=== PATIENT | female | born 1950 | race Caucasian/White ===

== ENCOUNTER 2020-03-02 06:15 | Emergency (ER) | payer BC, MEDICARE ==
[2020-03-02] MEDS ORDERED: solu-MEDROL 125 MG IM ONE (06:25)
[2020-03-02] MEDS ORDERED: Augmentin 875-125 Tablet PO ONE (06:26)
[2020-03-02] MEDS ORDERED: solu-MEDROL 125 MG ONE (06:28)
[2020-03-02] MEDS ORDERED: Augmentin 875-125 Tablet ONE (06:28)
--- NOTE | 2020-03-02 06:51 | ERPHSYRPT ---
- History of Present Illness Time Seen by Provider: 03/02/20 06:20 Source: patient Exam Limitations: no limitations Patient Subjective Stated Complaint: pt c/o throat swelling Triage Nursing Assessment: Pt c/o throat swelling and states, "everytime I swallow, it's like a big lump comes up in my throat". Throat is edematous and red, no white patches noted. Pt on rm air, maintaining O2 sats at 98%. Physician History: 69 years old female presented in the ER with chief complaint of sore throat sudden onset around midnight, more on the right side, feeling a small lump every time she tries to swallow which causes mild to moderate pain. No difficulty breathing. She denies swelling of tongue or throat closing sensations. No fever or chills reported. Timing/Duration: abrupt onset, hours (6) Severity: moderate ENT Location: throat Prearrival Treatment: no prearrival treatment Modifying Factors: Improves With: other (swallowing) Associated Symptoms: swollen glands, sore throat Allergies/Adverse Reactions: No Known Drug Allergies Allergy (Verified 03/02/20 06:33) Home Medications: Lisinopril/Hydrochlorothiazide [Lisinopril-Hctz 10-12.5 mg Tab] 10 tab PO DAILY 10/06/15 [History] Omeprazole 40 mg PO DAILY 10/06/15 [History] Albuterol Sulfate [Proair Hfa] 8.5 gm IH BID 10/18/15 [History] Aspirin 81 gm Chew [Baby Aspirin 81 mg Chew] 81 mg PO DAILY 10/18/15 [History] Hx Tetanus, Diphtheria Vaccination/Date Given: Yes Hx Influenza Vaccination/Date Given: Yes Hx Pneumococcal Vaccination/Date Given: No Immunizations Up to Date: Yes Travel Risk - International Travel Have you traveled outside of the country in past 3 weeks: No - Coronavirus Screening Are you exhibiting any of the following symptoms?: No Close contact with a COVID-19 positive Pt in past 14-21 Days: No - Review of Systems Constitutional: No Symptoms Eyes: No Symptoms Ears, Nose, & Throat: Throat Pain, Throat Swelling, Painful Swallowing Respiratory: No Symptoms Cardiac: No Symptoms Abdominal/Gastrointestinal: No Symptoms Genitourinary Symptoms: No Symptoms Musculoskeletal: No Symptoms Neurological: No Symptoms Psychological: No Symptoms Endocrine: No Symptoms - Past Medical History Pertinent Past Medical History: Yes Neurological History: Migraines ENT History: No Pertinent History Cardiac History: High Cholesterol, Hypertension Respiratory History: Asthma Endocrine Medical History: No Pertinent History Musculoskeletal History: Arthritis GI Medical History: GERD, Ulcer History: No Pertinent History Psycho-Social History: Anxiety Female Reproductive Disorders: No Pertinent History - Past Surgical History Past Surgical History: Yes Neuro Surgical History: No Pertinent History Cardiac: No Pertinent History Respiratory: No Pertinent History Gastrointestinal: Appendectomy Genitourinary: No Pertinent History Musculoskeletal: Orthopedic Surgery Female Surgical History: Hysterectomy, Tubal Ligation Other Surgical History: teddy knee replacement x2 - Social History Smoking Status: Never smoker Exposure to second hand smoke: Yes Drug Use: none Patient Lives Alone: No - Female History Hx Now: No - Nursing Vital Signs Nursing Vital Signs: Initial Vital Signs Temperature 98.0 F 03/02/20 06:20 Pulse Rate 76 03/02/20 06:20 Respiratory Rate 18 03/02/20 06:20 Blood Pressure 204/104 03/02/20 06:20 O2 Sat by Pulse Oximetry 97 03/02/20 06:20 Pain Scale Pain Intensity 0 - Physical Exam General Appearance: no apparent distress, alert Eye Exam: bilateral eye: normal inspection, PERRL, EOMI Ear Exam: bilateral ear: auricle normal, canal normal, TM normal Nasal Exam: normal inspection Throat Exam: normal (Visit cold outside), pharynx swelling (Postnasal drip, very well visible posterior pharynx. 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, normal mood/affect Skin Exam: normal color SpO2 Interpretation: normal SpO2: 97 O2 Delivery: Room Air Ordered Tests: Medication Summary Discontinued Medications Generic Name Dose Route Start Last Admin Trade Name Freq PRN Reason Stop Dose Admin Amoxicillin/Clavulanate Potassium 875 mg 03/02/20 06:26 03/02/20 06:31 Augmentin 875-125 Tablet PO 03/02/20 06:27 875 mg STAT ONE Administration Amoxicillin/Clavulanate Potassium Confirm 03/02/20 06:28 Augmentin 875-125 Tablet Administered 03/02/20 06:29 Dose 875 mg .ROUTE .STK-MED ONE Methylprednisolone Sodium Succinate 125 mg 03/02/20 06:25 03/02/20 06:31 Solu-Medrol 125 Mg IM 03/02/20 06:26 125 mg STAT ONE Administration Methylprednisolone Sodium Succinate Confirm 03/02/20 06:28 Solu-Medrol 125 Mg Administered 03/02/20 06:29 Dose 125 mg .ROUTE .STK-MED ONE Lab/Rad Data: Laboratory Results 03/02/20 Range/Units 07:00 Group A Strep Antibody NOT DETECTED (NEGATIVE) - Progress Progress: re-examined Progress Note: 03/02/20 06:49 We will treat with steroids and antibiotics. Counseled pt/family regarding: lab results, diagnosis - Departure Departure Disposition: Home Clinical Impression: Acute pharyngitis Qualifiers: Pharyngitis/tonsillitis etiology: other specified organisms Qualified Code(s): J02.8 - Acute pharyngitis due to other specified organisms Condition: Stable Critical Care Time: No Referrals: JOSE SOLO [Primary Care Provider] - (1-2 days for reevaluation) Instructions: Sore Throat, Adult (DC) Additional Instructions: Use warm salt water gargles. Take Tylenol/ibuprofen as needed. Follow-up with primary care physician for reevaluation. Return to ER for increasing swelling, difficulty breathing or if you notice swelling of tongue/floor of mouth/fever or chills. Prescriptions: Amox Tr/Potass Clav. 875 mg [Augmentin 875-125 Tablet] 875 mg PO BID 10 Days #20 tablet Prednisone 20 mg [Deltasone 20 mg] 60 mg PO DAILY 5 Days #15 tablet
[2020-03-02 07:42] VITALS: BP 203/96; PULSE 60
[2020-03-05 08:27] VITALS: O2SAT 97
== END 2020-03-02 07:45 | disposition home or self-care (01) ==
LOC: ED 06:15
DX: J02.8 Acute pharyngitis due to other specified organisms (principal)
CPT/HCPCS: 87651; 96372; 99284; J2930; A9270-GY

== ENCOUNTER 2022-02-03 07:01 | Emergency (ER) | payer MEDICARE ==
[2022-02-03 07:21] VITALS: O2SAT 98
--- NOTE | 2022-02-03 07:35 | ERPHSYRPT ---
- History of Present Illness Time Seen by Provider: 02/03/22 07:33 Source: patient Exam Limitations: no limitations Patient Subjective Stated Complaint: Pt states "I have had a cough and fever on and off since friday." Triage Nursing Assessment: Pt presented alert and oriented x 3, skin pwd. Pt ambulates with an upright steady gait, able to speak in clear full sentences Pt has persistant coughing. Physician History: Pt states "I have had a cough and fever on and off since friday." c/o mild shortness of breath. 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 Associated Symptoms: cough, muscle aches, shortness of breath Allergies/Adverse Reactions: No Known Drug Allergies Allergy (Verified 03/02/20 06:33) Home Medications: Omeprazole 40 mg PO DAILY 10/06/15 [History] Albuterol Sulfate [Proair Hfa] 8.5 gm IH BID 10/18/15 [History] Aspirin 81 gm Chew [Baby Aspirin 81 mg Chew] 81 mg PO DAILY 10/18/15 [History] Hx Tetanus, Diphtheria Vaccination/Date Given: Yes Hx Influenza Vaccination/Date Given: Yes Hx Pneumococcal Vaccination/Date Given: No Immunizations Up to Date: Yes Travel Risk - International Travel Have you traveled outside of the country in past 3 weeks: No - Coronavirus Screening Are you exhibiting any of the following symptoms?: Yes Symptoms: Fever, Cough: New Onset, Headaches/Body Aches/Fatigue Close contact with a COVID-19 positive Pt in past 14-21 Days: No - Vaccine Status Have you recieved a Covid-19 vaccination: Yes 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[employer] - Review of Systems Constitutional: Fever, Chills, Malaise Eyes: No Symptoms Ears, Nose, & Throat: No Symptoms Respiratory: Cough, Wheezing, No Dyspnea Cardiac: No Chest Pain, No Edema, No Syncope Abdominal/Gastrointestinal: No Abdominal Pain, No Nausea, No Vomiting, No Diarrhea Genitourinary Symptoms: No Dysuria Musculoskeletal: No Back Pain, No Neck Pain Skin: No Rash Neurological: No Dizziness, No Focal Weakness, No Sensory Changes Psychological: No Symptoms Endocrine: No Symptoms All Other Systems: Reviewed and Negative - Past Medical History Pertinent Past Medical History: Yes Neurological History: Migraines ENT History: No Pertinent History Cardiac History: High Cholesterol, Hypertension Respiratory History: Asthma Endocrine Medical History: No Pertinent History Musculoskeletal History: Arthritis GI Medical History: GERD, Ulcer History: No Pertinent History Psycho-Social History: Anxiety Female Reproductive Disorders: No Pertinent History - Past Surgical History Past Surgical History: Yes Neuro Surgical History: No Pertinent History Cardiac: No Pertinent History Respiratory: No Pertinent History Gastrointestinal: Appendectomy Genitourinary: No Pertinent History Musculoskeletal: Orthopedic Surgery Female Surgical History: Hysterectomy, Tubal Ligation Other Surgical History: teddy knee replacement x2 - Social History Smoking Status: Never smoker Exposure to second hand smoke: Yes Drug Use: none Patient Lives Alone: No - Nursing Vital Signs Nursing Vital Signs: Initial Vital Signs Temperature 98.4 F 02/03/22 07:16 Pulse Rate 74 02/03/22 07:16 Respiratory Rate 24 02/03/22 07:16 Blood Pressure 205/79 02/03/22 07:16 O2 Sat by Pulse Oximetry 98 02/03/22 07:16 Pain Scale Pain Intensity 4 - Physical Exam General Appearance: no apparent distress, alert Eye Exam: PERRL/EOMI ENT Exam: normal ENT inspection, No pharyngeal erythema, No tonsillar exudate Neck Exam: supple, full range of motion, No meningismus Respiratory Exam: decreased breath sounds, decreased air movement, rhonchi, wheezing Cardiovascular/Chest Exam: normal heart sounds, regular rate/rhythm, No murmur, No edema Gastrointestinal/Abdominal Exam: soft, non tender, no distention Extremity Exam: non-tender, normal range of motion, normal inspection, normal capillary refill Neurologic Exam: alert, oriented x 3, 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, 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, normal mood/affect, sensation nml, No motor deficits Skin Exam: normal color, warm, dry, No rash SpO2: 98 - Course Nursing assessment & vital signs reviewed: Yes EKG Interpreted by Me: Sinus Rhythm Rhythm Strip: Normal Sinus Rhythm - Radiology Exams Chest X-ray Interpretation: Reviewed by me Ordered Tests: Active Orders 24 hr Category Date Time Status EKG-ER Only STAT Care 02/03/22 07:19 Active CHEST 2 VIEWS (PA AND LAT) Stat Exams 02/03/22 07:20 Taken CBC W DIFF Stat Lab 02/03/22 07:35 Completed CMP Stat Lab 02/03/22 07:35 Completed TROPONIN Stat Lab 02/03/22 07:35 Received Medication Summary Generic Name Dose Route Start Last Admin Trade Name Shaun PRN Reason Stop Dose Admin Ceftriaxone Sodium 1,000 mg 02/03/22 08:04 Ceftriaxone Sodium 1000 Mg Inj Vial IM 02/03/22 08:05 STAT ONE Methylprednisolone Sodium 0 mg 02/03/22 08:04 Succinate 125 mg/ Sterile IM 02/03/22 08:05 Water 2 ml STAT ONE Lab/Rad Data: Laboratory Result Diagrams 02/03/22 07:35 02/03/22 07:35 Laboratory Results 02/03/22 02/03/22 Range/Units 07:35 07:35 WBC 5.6 (4.0-10.5) x10^3/uL RBC 4.62 (4.1-5.4) x10^6/uL Hgb 13.2 (12.0-16.0) g/dL Hct 42.2 (35-47) % MCV 91.3 (78-100) fL MCH 28.6 (26-32) pg MCHC 31.3 L (32-36) g/dL RDW 13.4 (11.5-14.0) % Plt Count 301 (150-450) x10^3/uL MPV 10.0 (7.5-11.0) fL Gran % 59.4 (36.0-66.0) % Immature Gran % (Auto) 0.2 (0.00-0.4) % Nucleat RBC Rel Count 0.0 (0.00-0.1) % Eos # (Auto) 0.27 (0-0.5) x10^3/uL Immature Gran # (Auto) 0.01 (0.00-0.03) x10^3u/L Absolute Lymphs (auto) 1.33 (1.0-4.6) x10^3/uL Absolute Monos (auto) 0.62 (0.0-1.3) x10^3/uL Absolute Nucleated RBC 0.00 (0.00-0.01) x10^3u/L Lymphocytes % 23.8 L (24.0-44.0) % Monocytes % 11.1 (0.0-12.0) % Eosinophils % 4.8 (0.00-5.0) % Basophils % 0.7 (0.0-0.4) % Absolute Granulocytes 3.32 (1.4-6.9) x10^3/uL Basophils # 0.04 (0-0.4) x10^3/uL Sodium 140 (137-145) mmol/L Potassium 3.8 (3.5-5.1) mmol/L Chloride 105 (98-107) mmol/L Carbon Dioxide 27 (22-30) mmol/L Anion Gap 11.5 (5-15) MEQ/L BUN 11 (7-17) mg/dL Creatinine 0.67 (0.52-1.04) mg/dL Estimated GFR > 60.0 ML/MIN Glucose 108 H (74-106) mg/dL Calcium 9.2 (8.4-10.2) mg/dL Total Bilirubin 0.40 (0.2-1.3) mg/dL AST 29 (14-36) U/L ALT 29 (0-35) U/L Alkaline Phosphatase 147 H (38-126) U/L Serum Total Protein 7.8 (6.3-8.2) g/dL Albumin 4.6 (3.5-5.0) g/dL - Progress Progress: improved Counseled pt/family regarding: lab results, diagnosis, need for follow-up, rad results, smoking cessation - Departure Departure Disposition: Home Clinical Impression: Acute bronchitis Qualifiers: Bronchitis organism: other organism Qualified Code(s): J20.8 - Acute bronchitis due to other specified organisms Condition: Stable Critical Care Time: No Referrals: JOSE SOLO [Primary Care Provider] - Follow up/PCP as directed Instructions: Acute Bronchitis, Chronic Obstructive Pulmonary Disease (COPD), Including Emphysema Additional Instructions: Discharge/Care Plan LAUREANO MADRIGALEN was seen on 02/03/22 in the Emergency Room. The patient was counseled regarding Diagnosis,Lab results, Imaging studies, need for follow up and when to return to the Emergency Room. Prescriptions given: Discharge Note I have spoken with the patient and/or caregivers. I have explained the patient's condition, diagnosis and treatment plan based on the information available to me at this time. I have answered the patient's and/or caregiver's questions and addressed any concerns. The patient and/or caregivers have as good understanding of the patient's diagnosis, condition and treatment plan as can be expected at this point. The vital signs have been stable. The patient's condition is stable and appropriate for discharge from the emergency department. The patient will pursue further outpatient evaluation with the primary care physician or other designated or consulting physician as outlined in the discharge instructions. The patient and/or caregivers are agreeable to this plan of care and follow-up instructions have been explained in detail. The patient and/or caregivers have received these instruction. The patient/and or caregivers are aware that any significant change in condition or worsening of symptoms should prompt an immediate return to this or the closest emergency department or call 911. PAVAN MADRIGALTHAO RUBIO was seen on 02/03/22 n the Emergency Room. At that time you were treated for an emergent condition, during your visit Laboratory, Radiology and/or other procedures may have been ordered. It is very important that you follow-up with your Primary Care Physician JOSE SOLO within the next 24-48 hours to review your Emergency Room visit and the final results of testing that was ordered. Some test results such as Urine Cultures, Blood Cultures, and other cultures if ordered will not be finalized for 24-48 hours. If you do not have a Primary Care Provider please call the medical records department at [phone] to obtain a copy of your results or you may sign into our patient portal to obtain these results by visiting us @ [email or web address] and completing the following steps: 1. Click on the Patient Portal link 2. Click the Patient Self Enrollment Link to complete the enrollment form and entering your 3. Once the enrollment form is completed you will receive an email with a temporary ID and password at the email address you provided. 4. Next choose a user name and password. Your user name must be at least 4 characters long and your password must be at least 4 characters long. 5. Choose a security question from the list and provide your answer to the question. If you already have signed into the Health Portal you may access your Health Care Information 21/10 by the following steps: 1. Login to our website @ [email or web address] 2. Enter your original user name and password. FAQS The [facility] Health Portal is an online tool that contains your Lab Results, Radiology Reports, Visit History, Discharge Instructions and Health Summary Lab and Radiology Results will not be available for 72 hours on the portal. The Portal is a secure site, passwords are encryted and URLs are re-written so they cannot be copied and pasted. You and authorized family members are the only ones who can access your Portal. Also there is a timeout feature that protects your information if you leave the Portal page open. If you have technical difficulty please use the Contact Us link on the page this will allow you to submit any questions you have regarding the Portal or you may contact the Medical Record Department at [phone]. Prescriptions: Azithromycin [Azithromycin 250 mg Pack] 250 mg PO UD #6 tablet Methylprednisolone Packet [Medrol Dosepack] 4 mg PO UD #30 packet
[2022-02-03 07:39] LABS: Absolute Neutrophil Ct (ANC) 3.32 x10^3/uL (1.4-6.9); Basophil (Absolute #) 0.04 x10^3/uL (0-0.4); Eosinophil % 4.8 % (0.00-5.0); Eosinophil (Absolute #) 0.27 x10^3/uL (0-0.5); Hematocrit 42.2 % (35-47); Hemoglobin 13.2 g/dL (12.0-16.0); Lymphocyte (Absolute #) 1.33 x10^3/uL (1.0-4.6); Lymphocytes % 23.8 % (24.0-44.0); Mean Cell Volume 91.3 fL (78-100); Mean Corpuscular Hemoglobin 28.6 pg (26-32); Mean Corpuscular Hgb Concent. 31.3 g/dL (32-36); Monocyte (Absolute #) 0.62 x10^3/uL (0.0-1.3); Monocytes % 11.1 % (0.0-12.0); Neutrophil % 59.4 % (36.0-66.0); Platelet Count 301 x10^3/uL (150-450); Red Blood Count 4.62 x10^6/uL (4.1-5.4); Red Cell Distribution Width 13.4 % (11.5-14.0); White Blood Count 5.6 x10^3/uL (4.0-10.5)
[2022-02-03 07:51] LABS: ALBUMIN 4.6 g/dL (3.5-5.0); ALKALINE PHOSPHATASE 147 U/L (38-126); ANION GAP 11.5 MEQ/L (5-15); BLOOD UREA NITROGEN 11 mg/dL (7-17); CHLORIDE 105 mmol/L (98-107); Calcium 9.2 mg/dL (8.4-10.2); Carbon Dioxide 27 mmol/L (22-30); Creatinine 1 0.67 mg/dL (0.52-1.04); EST GLOMERULAR FILTRATION RATE > 60.0 ML/MIN; Glucose 108 mg/dL (74-106); Potassium 3.8 mmol/L (3.5-5.1); SGOT/AST 29 U/L (14-36); SGPT/ALT 29 U/L (0-35); SODIUM 140 mmol/L (137-145); Total Protein 7.8 g/dL (6.3-8.2)
[2022-02-03] MEDS ORDERED: solu-MEDROL 125 MG, Sterile H2O 10 ml 2 ML IM ONE ×2 (08:04)
[2022-02-03] MEDS ORDERED: Rocephin 1000 MG INJ IM ONE (08:04)
[2022-02-03] MEDS ORDERED: Rocephin 1000 MG INJ ONE (08:13)
[2022-02-03] MEDS ORDERED: solu-MEDROL ONE (08:13)
[2022-02-03] MEDS ORDERED: Sterile H2O 10 ml IJ ONE (08:13)
[2022-02-03] MEDS ORDERED: XYLOCAINE 1% HCL 20 ML MDV ONE (08:14)
[2022-02-03 08:58] VITALS: BP 180/84; PULSE 70
--- NOTE | 2022-02-03 09:23 | XRAY ---
Indication: Fever, cough, and chills. Comparison: October 06, 2015 PA/lateral chest remains hyperinflated and clear. Heart and mediastinal structures within normal limits. Bony thorax intact again with mild osteopenia and degenerative changes. Impression: Continued nonacute chest with chronic features.
== END 2022-02-03 08:50 | disposition home or self-care (01) ==
LOC: ED 07:01
DX: J20.8 Acute bronchitis due to other specified organisms (principal); R50.9 Fever, unspecified; R05.1 Acute cough; R06.02 Shortness of breath; E78.5 Hyperlipidemia, unspecified; I10 Essential (primary) hypertension; Z79.52 Long term (current) use of systemic steroids; Z79.899 Other long term (current) drug therapy
CPT/HCPCS: 36415; 71046; 80053; 84484; 85025; 93005; 96372; 99284; J0696; J2930

== ENCOUNTER 2022-02-18 11:50 | Emergency (ER) | payer MEDICARE ==
[2022-02-18] MEDS ORDERED: CARDIZEM DRIP 100 MG/100 ML D5W 100 ML IV ONE (11:53)
[2022-02-18] MEDS ORDERED: Cardizem IV 50 MG/10 ML IV ONE (11:53)
[2022-02-18] MEDS: Cardizem IV 50 MG/10 ML IV ONE ×2 (11:54→12:24)
[2022-02-18] MEDS: CARDIZEM DRIP 100 MG/100 ML D5W 100 ML IV PRN (12:00)
--- NOTE | 2022-02-18 12:11 | XRAY ---
Indication: Palpitations. Dyspnea. Comparison: February 03, 2022 Portable chest demonstrates new tiny nonspecific right effusion. Remaining lungs clear. Heart not enlarged with stable small hiatal hernia. Bony thorax intact.
[2022-02-18 12:14] LABS: Absolute Neutrophil Ct (ANC) 9.09 x10^3/uL (1.4-6.9); Basophil (Absolute #) 0.05 x10^3/uL (0-0.4); Eosinophil % 1.4 % (0.00-5.0); Eosinophil (Absolute #) 0.17 x10^3/uL (0-0.5); Hemoglobin 11.6 g/dL (12.0-16.0); Lymphocyte (Absolute #) 2.03 x10^3/uL (1.0-4.6); Lymphocytes % 16.6 % (24.0-44.0); Mean Cell Volume 94.3 fL (78-100); Mean Corpuscular Hemoglobin 28.8 pg (26-32); Mean Corpuscular Hgb Concent. 30.5 g/dL (32-36); Mean Platelet Volume 10.3 fL (7.5-11.0); Monocyte (Absolute #) 0.83 x10^3/uL (0.0-1.3); Monocytes % 6.8 % (0.0-12.0); Neutrophil % 74.5 % (36.0-66.0); Platelet Count 323 x10^3/uL (150-450); Red Blood Count 4.03 x10^6/uL (4.1-5.4); Red Cell Distribution Width 13.8 % (11.5-14.0); White Blood Count 12.2 x10^3/uL (4.0-10.5)
--- NOTE | 2022-02-18 12:29 | ERPHSYRPT ---
- History of Present Illness Source: patient Exam Limitations: other (Very poor historian) Patient Subjective Stated Complaint: Pt states "I have been dizzy and short of breath for the pasat week and went to [facility] and they sent me here." Triage Nursing Assessment: Pt presented alert and oriented X 3, skin pwd. Pt ambulates with an upright steady gait, able to speak in clear full sentences pt has intermittant cough, pt tachypneic. Physician History: 71 yo wf who presented to [facility] w dyspnea/dizziness x 1wk was sent to the ER due to new onset of Afib. HR was 151 upon presentation. She states that she has been having some mid-sternal chest pain which she describes as throbbing and 7/10. Pt denies N/V/diaphoresis. She has a h/o HTN/hypothyroidism but denies h/o MA/CAD/DM/hyperlipidemia. Pt denies h/o Afib. Timing/Duration: other (Possible 1 week) Activities at Onset: rest Quality: throbbing Location: substernal Chest Pain Radiation: no radiation Severity of Pain-Max: moderate Severity of Pain-Current: moderate Modifying Factors: Improves With: nothing Nitro Today/Relief: no nitro taken today Aspirin Treatment Today: no aspirin today Associated Symptoms: denies symptoms, shortness of breath Prior Chest Pain/Cardiac Workup: no prior chest pain Allergies/Adverse Reactions: No Known Drug Allergies Allergy (Verified 03/02/20 06:33) Home Medications: Omeprazole 40 mg PO DAILY 10/06/15 [History] Albuterol Sulfate [Proair Hfa] 8.5 gm IH BID 10/18/15 [History] Hx Tetanus, Diphtheria Vaccination/Date Given: Yes Hx Influenza Vaccination/Date Given: Yes Hx Pneumococcal Vaccination/Date Given: No Immunizations Up to Date: Yes Travel Risk - International Travel Have you traveled outside of the country in past 3 weeks: No - Coronavirus Screening Are you exhibiting any of the following symptoms?: Yes Symptoms: Fever - Vaccine Status Have you recieved a Covid-19 vaccination: Yes 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: Funzio - Review of Systems Constitutional: No Symptoms Eyes: No Symptoms Ears, Nose, & Throat: No Symptoms Respiratory: No Symptoms, Dyspnea Cardiac: No Symptoms, Chest Pain Abdominal/Gastrointestinal: No Symptoms Genitourinary Symptoms: No Symptoms Musculoskeletal: No Symptoms Skin: No Symptoms Neurological: No Symptoms Psychological: No Symptoms Endocrine: No Symptoms Hematologic/Lymphatic: No Symptoms Immunological/Allergic: No Symptoms - Past Medical History Pertinent Past Medical History: Yes Neurological History: Migraines ENT History: No Pertinent History Cardiac History: High Cholesterol, Hypertension Respiratory History: Asthma Endocrine Medical History: No Pertinent History Musculoskeletal History: Arthritis GI Medical History: GERD, Ulcer History: No Pertinent History Psycho-Social History: Anxiety Female Reproductive Disorders: No Pertinent History - Past Surgical History Past Surgical History: Yes Neuro Surgical History: No Pertinent History Cardiac: No Pertinent History Respiratory: No Pertinent History Gastrointestinal: Appendectomy Genitourinary: No Pertinent History Musculoskeletal: Orthopedic Surgery Female Surgical History: Hysterectomy, Tubal Ligation Other Surgical History: teddy knee replacement x2 - Social History Smoking Status: Never smoker Exposure to second hand smoke: Yes Drug Use: none Patient Lives Alone: No - Nursing Vital Signs Nursing Vital Signs: Initial Vital Signs Temperature 99.4 F 02/18/22 11:50 Pulse Rate 148 H 02/18/22 11:50 Respiratory Rate 26 H 02/18/22 11:50 Blood Pressure 196/98 02/18/22 11:50 O2 Sat by Pulse Oximetry 96 02/18/22 11:50 Pain Scale Pain Intensity 4 Tachy/hypertensive - Physical Exam General Appearance: mild distress, anxiety Eye Exam: PERRL/EOMI, eyes nml inspection Ears, Nose, Throat Exam: normal ENT inspection, TMs normal, pharynx normal, moist mucous membranes Neck Exam: normal inspection, non-tender, supple, full range of motion, No meningismus, No mass, No Brudzinski, No Kernig's, No carotid bruit Respiratory Exam: crackles/rales (Faint rales at bases B, but overall clear) Cardiovascular Exam: other (IR-IR) Gastrointestinal/Abdomen Exam: soft, normal bowel sounds Back Exam: normal inspection, normal range of motion, No CVA tenderness, No vertebral tenderness Extremity Exam: normal inspection, normal range of motion Neurologic Exam: alert, oriented x 3, cooperative, cleater II-XII nml as tested Skin Exam: normal color, warm, dry, No rash Lymphatic Exam: No adenopathy SpO2 Interpretation: normal SpO2: 96 O2 Delivery: Room Air - Course Nursing assessment & vital signs reviewed: Yes EKG Interpreted by Me: RATE (Afib w RVR/prolonged QTc/nonspecific ST abnormality/EKG #2 12:49 Afib/Rate 98/prolonged QTc/Nonspecific ST changes) - Radiology Exams Chest X-ray Interpretation: Discussed w/ radiologist (Small R pleural effusion/Stable hiatal hernia) Ordered Tests: Active Orders 24 hr Category Date Time Status EKG-ER Only STAT Care 02/18/22 11:52 Completed CHEST 1 VIEW (PORTABLE) Stat Exams 02/18/22 11:53 Completed CBC W DIFF Stat Lab 02/18/22 12:00 Completed CMP Stat Lab 02/18/22 12:00 Completed NT PRO BNP Stat Lab 02/18/22 12:00 Completed PROTIME WITH INR Stat Lab 02/18/22 12:00 Completed PTT Stat Lab 02/18/22 12:00 Completed TROPONIN Q4H Lab 02/18/22 12:00 Completed Medication Summary Discontinued Medications Generic Name Dose Route Start Last Admin Trade Name Freq PRN Reason Stop Dose Admin Aspirin 324 mg 02/18/22 13:00 02/18/22 13:12 Aspirin 81 Mg Tab.Chew PO 02/18/22 13:01 324 mg STAT ONE Administration Aspirin Confirm 02/18/22 13:06 Aspirin 81 Mg Tab.Chew Administered 02/18/22 13:07 Dose 324 mg .ROUTE .STK-MED ONE Diltiazem HCl 15 mg 02/18/22 11:52 02/18/22 11:54 Diltiazem Hcl Iv 5 Mg/Ml Vial IV 02/18/22 11:53 15 mg STAT ONE Administration Diltiazem HCl Confirm 02/18/22 11:53 Diltiazem Hcl Iv 5 Mg/Ml Vial Administered 02/18/22 11:54 Dose 50 mg IV .STK-MED ONE Diltiazem HCl 10 mg 02/18/22 12:24 02/18/22 12:24 Diltiazem Hcl Iv 5 Mg/Ml Vial IV 02/18/22 12:25 10 mg STAT ONE Administration Enoxaparin Sodium 70 mg 02/18/22 13:01 02/18/22 13:20 Enoxaparin Sodium 80 Mg/0.8 Ml Syringe SQ 02/18/22 13:02 70 mg STAT ONE Administration Enoxaparin Sodium Confirm 02/18/22 13:06 Enoxaparin Sodium 80 Mg/0.8 Ml Syringe Administered 02/18/22 13:07 Dose 80 mg SQ .STK-MED ONE Diltiazem HCl 100 mls @ 5 mls/hr 02/18/22 11:52 02/18/22 12:00 Cardizem Drip 100 Mg/100 Ml D5w IV 03/20/22 11:51 5 mg/hr .Q20H PRN 5 mls/hr HEART RATE/ A-FIB Administration Protocol 5 MG/HR Diltiazem HCl Confirm 02/18/22 11:53 Cardizem Drip 100 Mg/100 Ml D5w Administered 02/18/22 11:54 Dose 100 mls @ ud IV .STK-MED ONE Metoprolol Tartrate 50 mg 02/18/22 12:55 02/18/22 13:13 Metoprolol Tartrate 50 Mg Tablet PO 02/18/22 12:56 50 mg STAT ONE Administration Metoprolol Tartrate Confirm 02/18/22 13:06 Metoprolol Tartrate 50 Mg Tablet Administered 02/18/22 13:07 Dose 50 mg .ROUTE .STK-MED ONE Lab/Rad Data: Laboratory Result Diagrams 02/18/22 12:00 02/18/22 12:00 Laboratory Results 02/18/22 02/18/22 02/18/22 Range/Units 12:00 12:00 12:00 WBC (4.0-10.5) x10^3/uL RBC (4.1-5.4) x10^6/uL Hgb (12.0-16.0) g/dL Hct (35-47) % MCV (78-100) fL MCH (26-32) pg MCHC (32-36) g/dL RDW (11.5-14.0) % Plt Count (150-450) x10^3/uL MPV (7.5-11.0) fL Gran % (36.0-66.0) % Immature Gran % (Auto) (0.00-0.4) % Nucleat RBC Rel Count (0.00-0.1) % Eos # (Auto) (0-0.5) x10^3/uL Immature Gran # (Auto) (0.00-0.03) x10^3u/L Absolute Lymphs (auto) (1.0-4.6) x10^3/uL Absolute Monos (auto) (0.0-1.3) x10^3/uL Absolute Nucleated RBC (0.00-0.01) x10^3u/L Lymphocytes % (24.0-44.0) % Monocytes % (0.0-12.0) % Eosinophils % (0.00-5.0) % Basophils % (0.0-0.4) % Absolute Granulocytes (1.4-6.9) x10^3/uL Basophils # (0-0.4) x10^3/uL PT 10.7 (9.4-12.5) SECONDS INR 1.01 (0.8-3.0) APTT 29.6 (25.1-36.5) SECONDS Sodium (137-145) mmol/L Potassium (3.5-5.1) mmol/L Chloride (98-107) mmol/L Carbon Dioxide (22-30) mmol/L Anion Gap (5-15) MEQ/L BUN (7-17) mg/dL Creatinine (0.52-1.04) mg/dL Estimated GFR ML/MIN Glucose (74-106) mg/dL Calcium (8.4-10.2) mg/dL Total Bilirubin (0.2-1.3) mg/dL AST (14-36) U/L ALT (0-35) U/L Alkaline Phosphatase (38-126) U/L Troponin I 3.840 H* (0.000-0.034) ng/mL NT-Pro-B Natriuret Pep (0-900) pg/mL Serum Total Protein (6.3-8.2) g/dL Albumin (3.5-5.0) g/dL Influenza Type A Ag NEGATIVE (NEGATIVE) Influenza Type B Ag NEGATIVE (NEGATIVE) RSV (PCR) NEGATIVE (Negative) SARS-CoV-2 (PCR) NEGATIVE (NEGATIVE) 02/18/22 02/18/22 Range/Units 12:00 12:00 WBC 12.2 H (4.0-10.5) x10^3/uL RBC 4.03 L (4.1-5.4) x10^6/uL Hgb 11.6 L (12.0-16.0) g/dL Hct 38.0 (35-47) % MCV 94.3 (78-100) fL MCH 28.8 (26-32) pg MCHC 30.5 L (32-36) g/dL RDW 13.8 (11.5-14.0) % Plt Count 323 (150-450) x10^3/uL MPV 10.3 (7.5-11.0) fL Gran % 74.5 H (36.0-66.0) % Immature Gran % (Auto) 0.3 (0.00-0.4) % Nucleat RBC Rel Count 0.0 (0.00-0.1) % Eos # (Auto) 0.17 (0-0.5) x10^3/uL Immature Gran # (Auto) 0.04 H (0.00-0.03) x10^3u/L Absolute Lymphs (auto) 2.03 (1.0-4.6) x10^3/uL Absolute Monos (auto) 0.83 (0.0-1.3) x10^3/uL Absolute Nucleated RBC 0.00 (0.00-0.01) x10^3u/L Lymphocytes % 16.6 L (24.0-44.0) % Monocytes % 6.8 (0.0-12.0) % Eosinophils % 1.4 (0.00-5.0) % Basophils % 0.4 (0.0-0.4) % Absolute Granulocytes 9.09 H (1.4-6.9) x10^3/uL Basophils # 0.05 (0-0.4) x10^3/uL PT (9.4-12.5) SECONDS INR (0.8-3.0) APTT (25.1-36.5) SECONDS Sodium 140 (137-145) mmol/L Potassium 4.0 (3.5-5.1) mmol/L Chloride 106 (98-107) mmol/L Carbon Dioxide 25 (22-30) mmol/L Anion Gap 13.4 (5-15) MEQ/L BUN 8 (7-17) mg/dL Creatinine 0.68 (0.52-1.04) mg/dL Estimated GFR > 60.0 ML/MIN Glucose 112 H (74-106) mg/dL Calcium 9.2 (8.4-10.2) mg/dL Total Bilirubin 0.80 (0.2-1.3) mg/dL AST 74 H (14-36) U/L ALT 80 H (0-35) U/L Alkaline Phosphatase 255 H (38-126) U/L Troponin I (0.000-0.034) ng/mL NT-Pro-B Natriuret Pep 5400 H (0-900) pg/mL Serum Total Protein 7.9 (6.3-8.2) g/dL Albumin 4.3 (3.5-5.0) g/dL Influenza Type A Ag (NEGATIVE) Influenza Type B Ag (NEGATIVE) RSV (PCR) (Negative) SARS-CoV-2 (PCR) (NEGATIVE) - Progress Progress: improved Progress Note: 02/18/22 13:03 15mg IV Cardizem bolus w mild decrease in heart rate Cardizem drip 5mg/hr 10mg IV Cardizem bolus w better response in heart rate Cardizem drip increased to 10mg/hr 50mg po Lopressor 324 ASA po Lovenox 80mg sq x1 02/18/22 13:[address] Kebede at [facility] [place] 02/18/22 21:50 Pt state when Air ambulance assumed care of pt 02/18/22 21:50 - Departure Departure Disposition: Transfer Clinical Impression: Atrial fibrillation with rapid ventricular response, Elevated troponin Condition: Stable Critical Care Time: Yes Critical Care Time(excluding separately billable procedures): Critical 30-74 mins Referrals: JOSE SOLO [Primary Care Provider] - Follow up/PCP as directed Instructions: Arrhythmias (DC)
[2022-02-18 12:30] LABS: ALBUMIN 4.3 g/dL (3.5-5.0); ALKALINE PHOSPHATASE 255 U/L (38-126); ANION GAP 13.4 MEQ/L (5-15); BLOOD UREA NITROGEN 8 mg/dL (7-17); CHLORIDE 106 mmol/L (98-107); Calcium 9.2 mg/dL (8.4-10.2); Carbon Dioxide 25 mmol/L (22-30); Creatinine 1 0.68 mg/dL (0.52-1.04); EST GLOMERULAR FILTRATION RATE > 60.0 ML/MIN; Glucose 112 mg/dL (74-106); NT PRO BNP 5400 pg/mL (0-900); SGOT/AST 74 U/L (14-36); SGPT/ALT 80 U/L (0-35); SODIUM 140 mmol/L (137-145); Total Protein 7.9 g/dL (6.3-8.2)
[2022-02-18 12:38] LABS: INR 1.01 (0.8-3.0); PROTIME 10.7 SECONDS (9.4-12.5); PTT 29.6 SECONDS (25.1-36.5)
[2022-02-18 12:45] LABS: INFLUENZA A NEGATIVE (NEGATIVE); INFLUENZA B NEGATIVE (NEGATIVE); RESPIRATORY SYNCTIAL VIRUS NEGATIVE (Negative); SARS-CoV-2 Xpert Express NEGATIVE (NEGATIVE)
[2022-02-18] MEDS ORDERED: ENOXAPARIN SODIUM SQ ONE (13:06)
[2022-02-18] MEDS ORDERED: BABY ASPIRIN 81 MG CHEW ONE (13:06)
[2022-02-18] MEDS ORDERED: Lopressor 50 MG ONE (13:06)
[2022-02-18] MEDS: BABY ASPIRIN 81 MG CHEW PO ONE (13:12)
[2022-02-18] MEDS: Lopressor 50 MG PO ONE (13:13)
[2022-02-18] MEDS: ENOXAPARIN SODIUM SQ ONE (13:20)
[2022-02-18 14:16] VITALS: PULSE 110
[2022-02-18 15:19] VITALS: BP 136/87
[2022-02-18 21:51] VITALS: O2SAT 96
== END 2022-02-18 15:26 | disposition short-term general hospital (02) ==
LOC: ED 11:50
DX: I48.20 Chronic atrial fibrillation, unspecified (principal); R77.8 Other specified abnormalities of plasma proteins; I21.4 Non-ST elevation (NSTEMI) myocardial infarction; R42 Dizziness and giddiness; R06.00 Dyspnea, unspecified; R07.9 Chest pain, unspecified; I10 Essential (primary) hypertension; Z79.899 Other long term (current) drug therapy; Z20.828 Contact with and (suspected) exposure to other viral communicable diseases
CPT/HCPCS: 0241U; 36000; 36415; 71045; 80053; 83880; 84484; 85025; 85610; 85730; 93005; 96365; 96372; 96374; 96376; 99285; 99291; J1650; A9270-GY

== ENCOUNTER 2023-06-24 21:02 | Observation (INO) | payer MEDICARE ==
[2023-06-24] MEDS ORDERED: DUONEB 0.5-3 MG/3 ml Neb IH ONE (21:21)
[2023-06-24] MEDS: DUONEB 0.5-3 MG/3 ml Neb IH ONE (21:25)
--- NOTE | 2023-06-24 22:05 | ERPHSYRPT ---
- History of Present Illness Time Seen by Provider: 06/24/23 21:15 Source: patient Exam Limitations: no limitations Patient Subjective Stated Complaint: pt reports at approx 1600 while at rest she started having left upper chest sharp pain that radiates " a little" to her left shoulder. it only lasted a few minutes and was resolved with 1 SL ntg tablet. shortly after pain resolved she started feeling sob like she wasn't getting enough oxygen, she couldn't find her albuterol inhaler but came to ED to have her heart checked. reports cold symptoms for 2 days of cough (green mucus expectorant), chest and nasal congestion, runny nose (clear) and intermittent episodes of this sob feeling. Triage Nursing Assessment: pt ambulated to room 5 independently with slow steady gait. pt is alert and oriented times three, able to speak in 5-6 word pgrases, able to move all extremities, and with resp that slightly fast, shallow, labored, and with use of accessory muscles. intermittent dry NPC noted, specimen cup provided in case sputum sample can be obtained. heart sounds present and regular. bilat radial and pedal pulses palpable. posterior lung sounds diminished throughout with left lobes with inspiratory wheezes. skin is warm, dry, pink, and intact. no edema or JVD noted. RT consulted and at bedside for eval and treat. at this time pt denies cp, pain of any kind, lightheadedness, dizziness, n/v, diarrhea, change to appetite, or change/ difficulty with urinary or bowel elimination. Physician History: 73-year-old female presents to emergency department for evaluation of shortness of breath. Patient states symptoms started 2 days ago with nasal congestion and a productive cough. Approximately 4 PM today patient developed left upper chest pain. Pain lasted several minutes then resolved. No associated nausea vomiting or diaphoresis. Symptoms are moderate in intensity. No specific worsening or improving factors. Patient is concerned that she has 3 cardiac stents. Patient otherwise feels fine. She voices no other complaints or concerns at this time. Portions of this note were created with voice recognition technology. There may be grammatical, spelling, punctuation or sound alike errors Timing/Duration: day(s) (2 days ago) Activities at Onset: none Severity of Dyspnea-Max: moderate Severity of Dyspnea-Current: mild Possible Cause: no prior episodes Modifying Factors: Improves With: activity Associated Symptoms: chest pain/discomfort, wheezing, productive cough Allergies/Adverse Reactions: No Known Drug Allergies Allergy (Verified 06/24/23 22:08) Home Medications: Omeprazole 40 mg PO DAILY 10/06/15 [History] Albuterol Sulfate [Proair Hfa] 8.5 gm IH BID 10/18/15 [History] Alendronate Sodium 70 mg [Fosamax 70 MG] 70 mg PO Q7D@0600 06/24/23 [H istory] Apixaban [Eliquis] 5 mg PO BID 06/24/23 [History] Atorvastatin Calcium 40 mg PO DAILY 06/24/23 [History] Carvedilol 12.5 mg [Coreg 12.5 mg] 12.5 mg PO BID 06/24/23 [History] Clopidogrel Bisulfate [Plavix] 75 mg PO DAILY 06/24/23 [History] Digoxin 0.125 mg Tablet [Lanoxin 0.125MG TABLET] 0.125 mg PO DAILY 06/24/23 [History] Diltiazem HCl [Cardizem] 120 mg PO DAILY 06/24/23 [History] Hydralazine HCl 1.5 tab PO BID 06/24/23 [History] Isosorbide Mononitrate 30 mg [Imdur 30 MG] 30 mg PO DAILY 06/24/23 [History] Losartan Potassium 100 mg PO DAILY 06/24/23 [History] Verapamil HCl [Verapamil ER] 120 mg PO HS 06/24/23 [History] Hx Tetanus, Diphtheria Vaccination/Date Given: Yes Hx Influenza Vaccination/Date Given: Yes Hx Pneumococcal Vaccination/Date Given: No Immunizations Up to Date: Yes Travel Risk - International Travel Have you traveled outside of the country in past 3 weeks: No - Emerging Infectious Disease Are you exhibiting symptoms associated with any current EIDs: No - Review of Systems Constitutional: No Symptoms, No Fever, No Chills Eyes: No Symptoms Ears, Nose, & Throat: No Symptoms Respiratory: No Symptoms, No Cough, No Dyspnea Cardiac: No Symptoms, No Chest Pain, No Edema, No Syncope Abdominal/Gastrointestinal: No Symptoms, No Abdominal Pain, No Nausea, No Vomiting, No Diarrhea Genitourinary Symptoms: No Symptoms, No Dysuria Musculoskeletal: No Symptoms, No Back Pain, No Neck Pain Skin: No Symptoms, No Rash Neurological: No Symptoms, No Dizziness, No Focal Weakness, No Sensory Changes Psychological: No Symptoms Endocrine: No Symptoms Hematologic/Lymphatic: No Symptoms Immunological/Allergic: No Symptoms All Other Systems: Reviewed and Negative - Past Medical History Pertinent Past Medical History: Yes Neurological History: Migraines ENT History: No Pertinent History Cardiac History: Arrhythmia, Coronary Artery Disease, Hypertension, Myocardial Infarction ([place]) Respiratory History: Asthma, Bronchitis, COPD Endocrine Medical History: No Pertinent History Musculoskeletal History: Arthritis, Osteoarthritis, Osteoporosis GI Medical History: GERD, Ulcer History: No Pertinent History Psycho-Social History: Anxiety Female Reproductive Disorders: No Pertinent History Other Medical History: CARDIAC STENTS X2 JAN 2022 [place] CARDIAC STENT X1 SEPTEMBER 2022 [place] BILAT TKR > 5YRS AGO. PAC's - Past Surgical History Past Surgical History: Yes Neuro Surgical History: No Pertinent History Cardiac: No Pertinent History Respiratory: No Pertinent History Gastrointestinal: Appendectomy Genitourinary: No Pertinent History Musculoskeletal: Orthopedic Surgery Female Surgical History: Hysterectomy, Tubal Ligation Other Surgical History: teddy knee replacement x2 - Social History Smoking Status: Never smoker Exposure to second hand smoke: No Drug Use: none Patient Lives Alone: No - Nursing Vital Signs Nursing Vital Signs: Initial Vital Signs Temperature 98.7 F 06/24/23 21:06 Pulse Rate 70 06/24/23 21:06 Respiratory Rate 29 H 06/24/23 21:06 Blood Pressure 158/121 06/24/23 21:06 O2 Sat by Pulse Oximetry 99 06/24/23 21:06 Pain Scale Pain Intensity 0 - Physical Exam General Appearance: no apparent distress, alert Eye Exam: PERRL/EOMI Ears, Nose, Throat Exam: hearing grossly normal, normal ENT inspection, normal pharynx Neck Exam: normal inspection, supple, full range of motion Respiratory Exam: normal breath sounds, respiratory distress (Mild respiratory distress), wheezing Cardiovascular/Chest Exam: normal heart sounds, regular rate/rhythm Abdominal/Gastrointestinal Exam: soft, No tenderness, No distention, No mass Extremity Exam: non-tender, normal range of motion, normal inspection, no calf tenderness, no pedal edema Neurologic Exam: alert, oriented x 3, cooperative, 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 tested, sensation nml, No motor deficits Skin Exam: normal color, warm, No dry Lymphatic Exam: No adenopathy SpO2 Interpretation: normal SpO2: 98 O2 Delivery: Room Air - Course Nursing assessment & vital signs reviewed: Yes EKG Interpreted by Me: RATE (64), Sinus Rhythm, NORMAL AXIS, NORMAL INTERVALS - Radiology Exams Chest X-ray Interpretation: Teleradiologist Report (No acute findings) Ordered Tests: Active Orders 24 hr Category Date Time Status Ammonia Distiller STAT Care 06/24/23 21:41 Active EKG-ER Only STAT Care 06/24/23 21:41 Active IV Insertion STAT Care 06/24/23 21:41 Active Pulse Oximetry (ED) STAT Care 06/24/23 21:41 Active CHEST 1 VIEW (PORTABLE) Stat Exams 06/24/23 23:28 Taken BLOOD CULTURE Stat Lab 06/24/23 22:02 Received CBC W DIFF Stat Lab 06/24/23 21:45 Completed CMP Stat Lab 06/24/23 21:45 Completed D-DIMER QUANTITATIVE Stat Lab 06/24/23 21:45 Completed NT PRO BNPII Stat Lab 06/24/23 22:30 Completed TROPONIN Q4H Lab 06/24/23 21:45 Completed TROPONIN Q4H Lab 06/25/23 00:47 Received TROPONIN Q4H Lab 06/25/23 05:45 Ordered Respiratory Therapy Assessment DAILY RT 06/24/23 21:33 Active Transfer Order Routine Transfer 06/25/23 Ordered Medication Summary Discontinued Medications Generic Name Dose Route Start Last Admin Trade Name Freq PRN Reason Stop Dose Admin Albuterol/Ipratropium 3 ml 06/24/23 21:23 06/24/23 21:25 Ipratropium/Albuterol Sulfate 3 Ml Ampul.Neb IH 06/24/23 21:24 3 ml STAT ONE Administration Albuterol/Ipratropium Confirm 06/24/23 21:21 Ipratropium/Albuterol Sulfate 3 Ml Ampul.Neb Administered 06/24/23 21:22 Dose 3 ml IH .STK-MED ONE Methylprednisolone Sodium 0 mg 06/24/23 22:08 06/24/23 22:37 Succinate 125 mg/ Sterile IV 06/24/23 22:09 125 mg Water 2 ml STAT ONE Administration Methylprednisolone Sodium Succinate Confirm 06/24/23 22:36 Methylprednis Sod Succ 125 Mg/2 Ml Vial Administered 06/24/23 22:37 Dose 125 mg .ROUTE .STK-MED ONE Sterile Water Confirm 06/24/23 22:36 Water For Injection,Sterile 10 Ml Vial Administered 06/24/23 22:37 Dose 10 ml IJ .[employer] ONE Lab/Rad Data: Laboratory Result Diagrams 06/24/23 21:45 06/24/23 21:45 Laboratory Results 06/24/23 06/24/23 06/24/23 Range/Units 22:30 21:45 21:45 WBC (4.0-10.5) x10^3/uL RBC (4.1-5.4) x10^6/uL Hgb (12.0-16.0) g/dL Hct (35-47) % MCV (78-100) fL MCH (26-32) pg MCHC (32-36) g/dL RDW (11.5-14.0) % Plt Count (150-450) x10^3/uL MPV (7.5-11.0) fL Gran % (36.0-66.0) % Immature Gran % (Auto) (0.00-0.4) % Nucleat RBC Rel Count (0.00-0.1) % Eos # (Auto) (0-0.5) x10^3/uL Immature Gran # (Auto) (0.00-0.03) x10^3u/L Absolute Lymphs (auto) (1.0-4.6) x10^3/uL Absolute Monos (auto) (0.0-1.3) x10^3/uL Absolute Nucleated RBC (0.00-0.01) x10^3u/L Lymphocytes % (24.0-44.0) % Monocytes % (0.0-12.0) % Eosinophils % (0.00-5.0) % Basophils % (0.0-0.4) % Absolute Granulocytes (1.4-6.9) x10^3/uL Basophils # (0-0.4) x10^3/uL D-Dimer 0.40 (0.0-0.50) mg/L Sodium (135-145) mmol/L Potassium (3.5-5.1) mmol/L Chloride (98-107) mmol/L Carbon Dioxide (22-30) mmol/L Anion Gap (5-15) MEQ/L BUN (7-17) mg/dL Creatinine (0.52-1.04) mg/dL Estimated GFR ML/MIN Glucose (74-106) mg/dL Calcium (8.4-10.2) mg/dL Total Bilirubin (0.2-1.3) mg/dL AST (14-36) U/L ALT (0-35) U/L Alkaline Phosphatase (38-126) U/L Troponin I (0.000-0.034) ng/mL NT-Pro-B Natriuret Pep (<300) pg/mL Serum Total Protein (6.3-8.2) g/dL Albumin (3.5-5.0) g/dL Digoxin (0.8-1.9) ng/mL Influenza Type A Ag NEGATIVE (NEGATIVE) Influenza Type B Ag NEGATIVE (NEGATIVE) RSV (PCR) NEGATIVE (NEGATIVE) SARS-CoV-2 (PCR) NEGATIVE (NEGATIVE) 06/24/23 06/24/23 06/24/23 Range/Units 21:45 21:45 21:45 WBC 7.7 (4.0-10.5) x10^3/uL RBC 3.18 L (4.1-5.4) x10^6/uL Hgb 9.6 L (12.0-16.0) g/dL Hct 30.5 L (35-47) % MCV 95.9 (78-100) fL MCH 30.2 (26-32) pg MCHC 31.5 L (32-36) g/dL RDW 13.8 (11.5-14.0) % Plt Count 244 (150-450) x10^3/uL MPV 10.4 (7.5-11.0) fL Gran % 75.2 H (36.0-66.0) % Immature Gran % (Auto) 0.3 (0.00-0.4) % Nucleat RBC Rel Count 0.0 (0.00-0.1) % Eos # (Auto) 0.30 (0-0.5) x10^3/uL Immature Gran # (Auto) 0.02 (0.00-0.03) x10^3u/L Absolute Lymphs (auto) 0.94 L (1.0-4.6) x10^3/uL Absolute Monos (auto) 0.60 (0.0-1.3) x10^3/uL Absolute Nucleated RBC 0.00 (0.00-0.01) x10^3u/L Lymphocytes % 12.2 L (24.0-44.0) % Monocytes % 7.8 (0.0-12.0) % Eosinophils % 3.9 (0.00-5.0) % Basophils % 0.6 (0.0-0.4) % Absolute Granulocytes 5.82 (1.4-6.9) x10^3/uL Basophils # 0.05 (0-0.4) x10^3/uL D-Dimer (0.0-0.50) mg/L Sodium 138 (135-145) mmol/L Potassium 3.7 (3.5-5.1) mmol/L Chloride 109 H (98-107) mmol/L Carbon Dioxide 21 L (22-30) mmol/L Anion Gap 12.1 (5-15) MEQ/L BUN 18 H (7-17) mg/dL Creatinine 1.24 H (0.52-1.04) mg/dL Estimated GFR 46.5 ML/MIN Glucose 94 (74-106) mg/dL Calcium 9.2 (8.4-10.2) mg/dL Total Bilirubin 0.30 (0.2-1.3) mg/dL AST 40 H (14-36) U/L ALT 22 (0-35) U/L Alkaline Phosphatase 128 H (38-126) U/L Troponin I < 0.012 (0.000-0.034) ng/mL NT-Pro-B Natriuret Pep (<300) pg/mL Serum Total Protein 6.5 (6.3-8.2) g/dL Albumin 3.8 (3.5-5.0) g/dL Digoxin (0.8-1.9) ng/mL Influenza Type A Ag (NEGATIVE) Influenza Type B Ag (NEGATIVE) RSV (PCR) (NEGATIVE) SARS-CoV-2 (PCR) (NEGATIVE) 06/24/23 Range/Units 21:45 WBC (4.0-10.5) x10^3/uL RBC (4.1-5.4) x10^6/uL Hgb (12.0-16.0) g/dL Hct (35-47) % MCV (78-100) fL MCH (26-32) pg MCHC (32-36) g/dL RDW (11.5-14.0) % Plt Count (150-450) x10^3/uL MPV (7.5-11.0) fL Gran % (36.0-66.0) % Immature Gran % (Auto) (0.00-0.4) % Nucleat RBC Rel Count (0.00-0.1) % Eos # (Auto) (0-0.5) x10^3/uL Immature Gran # (Auto) (0.00-0.03) x10^3u/L Absolute Lymphs (auto) (1.0-4.6) x10^3/uL Absolute Monos (auto) (0.0-1.3) x10^3/uL Absolute Nucleated RBC (0.00-0.01) x10^3u/L Lymphocytes % (24.0-44.0) % Monocytes % (0.0-12.0) % Eosinophils % (0.00-5.0) % Basophils % (0.0-0.4) % Absolute Granulocytes (1.4-6.9) x10^3/uL Basophils # (0-0.4) x10^3/uL D-Dimer (0.0-0.50) mg/L Sodium (135-145) mmol/L Potassium (3.5-5.1) mmol/L Chloride (98-107) mmol/L Carbon Dioxide (22-30) mmol/L Anion Gap (5-15) MEQ/L BUN (7-17) mg/dL Creatinine (0.52-1.04) mg/dL Estimated GFR ML/MIN Glucose (74-106) mg/dL Calcium (8.4-10.2) mg/dL Total Bilirubin (0.2-1.3) mg/dL AST (14-36) U/L ALT (0-35) U/L Alkaline Phosphatase (38-126) U/L Troponin I (0.000-0.034) ng/mL NT-Pro-B Natriuret Pep (<300) pg/mL Serum Total Protein (6.3-8.2) g/dL Albumin (3.5-5.0) g/dL Digoxin < 0.4 L (0.8-1.9) ng/mL Influenza Type A Ag (NEGATIVE) Influenza Type B Ag (NEGATIVE) RSV (PCR) (NEGATIVE) SARS-CoV-2 (PCR) (NEGATIVE) - Progress Progress: improved Air Movement: good Progress Note: Patient is a 73-year-old female presents to our ED via EMS for evaluation of shortness of breath and chest pain. Patient has a significant cardiac history including 3 cardiac stents. Physical exam significant for wheezing. Physical exam otherwise normal. Patient received a DuoNeb and albuterol. Wheezing resolved. No active chest pain. However in light of patient's complaints and past medical history patient will be admitted for cardiac rule out. Initial troponin negative. D-dimer negative. Chest x-ray negative for acute findings. Patient has a normocytic anemia of 9.6. Serum creatinine slightly elevated at 1.24. Plan of care discussed with patient. She agrees to admission to [facility] for further evaluation and treatment. Case discussed with Dr. Canales hospitalist who accepts admission to observation at 12:57 PM. Portions of this note were created with voice recognition technology. There may be grammatical, spelling, punctuation or sound alike errors Complexity problem addressed is moderate acute complicated No critical care time Complexity of data reviewed and analyzed is extensive. Test ordered test reviewed results analyzed and correlated clinically with history and physical examination. Management discussed with hospitalist who accepts admission to observation. Risk of complication and or risk of morbidity/mortality patient management is high. Patient requires hospitalization for further evaluation and treatment. Vital stable. Time spent admit patient is approximately 20 minutes. Plan of care established for shared decision making. No social determinants of health present impede follow-up. Portions of this note were created with voice recognition technology. There may be grammatical, spelling, punctuation or sound alike errors 06/25/23 01:01 Blood Culture(s) Obtained: Yes Antibiotics given: No Discussed with DrNikhil: Other (Case discussed with Dr. Canales at 12:57 AM) Will see patient in: hospital (observation) Counseled pt/family regarding: lab results, diagnosis, rad results - Departure Departure Disposition: Observation Clinical Impression: Chest pain, Shortness of breath, ACS (acute coronary syndrome), Normocytic anemia, Elevated serum creatinine Condition: Stable Critical Care Time: No Referrals: JOSE SOLO [Primary Care Provider] - Follow up/PCP as directed
[2023-06-24 22:18] LABS: Absolute Neutrophil Ct (ANC) 5.82 x10^3/uL (1.4-6.9); BASOPHIL % 0.6 % (0.0-0.4); Basophil (Absolute #) 0.05 x10^3/uL (0-0.4); Eosinophil % 3.9 % (0.00-5.0); Hematocrit 30.5 % (35-47); Hemoglobin 9.6 g/dL (12.0-16.0); IMMATURE GRAN # 0.02 x10^3u/L (0.00-0.03); IMMATURE GRAN % 0.3 % (0.00-0.4); Lymphocyte (Absolute #) 0.94 x10^3/uL (1.0-4.6); Lymphocytes % 12.2 % (24.0-44.0); Mean Cell Volume 95.9 fL (78-100); Mean Corpuscular Hemoglobin 30.2 pg (26-32); Mean Corpuscular Hgb Concent. 31.5 g/dL (32-36); Mean Platelet Volume 10.4 fL (7.5-11.0); Monocytes % 7.8 % (0.0-12.0); Neutrophil % 75.2 % (36.0-66.0); Platelet Count 244 x10^3/uL (150-450); Red Blood Count 3.18 x10^6/uL (4.1-5.4); Red Cell Distribution Width 13.8 % (11.5-14.0); White Blood Count 7.7 x10^3/uL (4.0-10.5)
[2023-06-24 22:32] LABS: ALBUMIN 3.8 g/dL (3.5-5.0); ANION GAP 12.1 MEQ/L (5-15); BILIRUBIN,TOTAL 0.3 mg/dL (0.2-1.3); Calcium 9.2 mg/dL (8.4-10.2); Creatinine 1 1.24 mg/dL (0.52-1.04); EST GLOMERULAR FILTRATION RATE 46.5 ML/MIN; Potassium 3.7 mmol/L (3.5-5.1); Total Protein 6.5 g/dL (6.3-8.2)
[2023-06-24] MEDS ORDERED: solu-MEDROL ONE (22:36)
[2023-06-24] MEDS ORDERED: Sterile H2O 10 ml IJ ONE (22:36)
[2023-06-24] MEDS: solu-MEDROL 125 MG, Sterile H2O 10 ml 2 ML IV ONE (22:37)
[2023-06-24 23:24] LABS: INFLUENZA A NEGATIVE (NEGATIVE); INFLUENZA B NEGATIVE (NEGATIVE); RESPIRATORY SYNCTIAL VIRUS NEGATIVE (NEGATIVE); SARS-CoV-2 Xpert Express NEGATIVE (NEGATIVE)
--- NOTE | 2023-06-25 01:14 | PCM.HP ---
History of Present Illness - Chief Complaint Chief Complaint: shortness of breath Date: 06/25/23 History of Present Illness: Ms. MADRIGAL is a 73 year old female with a past medical history significant for hypertension, hyperlipidemia and coronary artery disease status post PTCA/stents who presents with complaints of shortness of breath for about 3 days associated with some mild chest pain that started yesterday. She was evaluated in the ER with negative EKG/troponin levels but she is still concerned, given her cardiac history. She was given duonebs with some improvement of symptoms and has now been recommended for admission. No fever or chills. No chest pain or palpitations currently. No nausea, vomiting or diarrhea. No dysuria, hematuria or frequency noted. - Review of Systems Constitutional: No Fever, No Chills, No Fatigue Eyes: No Vision Changes Ears, Nose, & Throat: No Painful Swallowing Respiratory: Short Of Breath, Wheezing, No Cough, No Orthopnea Cardiac: Chest Pain, No Edema, No Palpitations Abdominal/Gastrointestinal: No Abdominal Pain, No Nausea, No Vomiting, No Diarrhea Genitourinary Symptoms: No Dysuria, No Frequency, No Hematuria Musculoskeletal: No Arthralgias Skin: No Rash Neurological: No Dizziness, No Focal Weakness Psychological: No Suicidal Ideations Endocrine: No Polyuria, No Polydipsia Medications & Allergies Home Medications: Home Medication List Omeprazole 40 mg PO DAILY 10/06/15 [History Confirmed 06/24/23] Albuterol Sulfate [Proair Hfa] 8.5 gm IH BID 10/18/15 [History Confirmed 06/24/23] Alendronate Sodium 70 mg [Fosamax 70 MG] 70 mg PO Q7D@0600 06/24/23 [History Confirmed 06/24/23] Apixaban [Eliquis] 5 mg PO BID 06/24/23 [History Confirmed 06/24/23] Atorvastatin Calcium 40 mg PO DAILY 06/24/23 [History Confirmed 06/24/23] Carvedilol 12.5 mg [Coreg 12.5 mg] 12.5 mg PO BID 06/24/23 [History Confirmed 06/24/23] Clopidogrel Bisulfate [Plavix] 75 mg PO DAILY 06/24/23 [History Confirmed 06/24/23] Digoxin 0.125 mg Tablet [Lanoxin 0.125MG TABLET] 0.125 mg PO DAILY 06/24/23 [History Confirmed 06/24/23] Diltiazem HCl [Cardizem] 120 mg PO DAILY 06/24/23 [History Confirmed 06/24/23] Hydralazine HCl 1.5 tab PO BID 06/24/23 [History Confirmed 06/24/23] Isosorbide Mononitrate 30 mg [Imdur 30 MG] 30 mg PO DAILY 06/24/23 [History Confirmed 06/24/23] Losartan Potassium 100 mg PO DAILY 06/24/23 [History Confirmed 06/24/23] Verapamil HCl [Verapamil ER] 120 mg PO HS 06/24/23 [History Confirmed 06/24/23] Allergies/Adverse Reactions: Allergies Allergy/AdvReac Type Severity Reaction Status Date / Time No Known Drug Allergies Allergy Verified 06/24/23 22:08 - Past Medical History Past Medical History: Yes Neurological History: Migraines ENT History: No Pertinent History Cardiac History: Arrhythmia, Coronary Artery Disease, Hypertension, Myocardial Infarction ([place]) Respiratory History: Asthma, Bronchitis, COPD Endocrine Medical History: No Pertinent History Musculoskelatal History: Arthritis, Osteoarthritis, Osteoporosis GI Medical History: GERD, Ulcer History: No Pertinent History Pyscho-Social History: Anxiety Reproductive Disorders: No Pertinent History Comment: CARDIAC STENTS X2 JAN 2022 POST NH. CARDIAC STENT X1 SEPTEMBER 2022 POST NH. BILAT TKR > 5YRS AGO. PAC's - Past Surgical History Past Surgical History: Yes Neuro Surgical History: No Pertinent History Cardiac History: No Pertinent History Respiratory Surgery: No Pertinent History GI Surgical History: Appendectomy Genitourinary Surgical Hx: No Pertinent History Musculskeletal Surgical Hx: Orthopedic Surgery Female Surgical History: Hysterectomy, Tubal Ligation Other Surgical History: teddy knee replacement x2 - Social History Smoking Status: Never smoker Exposure to second hand smoke: No Alcohol: None Drug Use: none - Social Determinants of Health Will the patient participate in the screening: Yes Do you worry about a steady place to live?: No Do you have any problems with any of the following?: No known problems In the past 12 months,have you had to go without utilities?: No Have you or anyone in your house had to go without enough: Choose not to answer Transportation Issues: No Has anyone in your support network made you feel unsafe?: Choose not to answer - Physical Exam Vital Signs: Vital Signs - 24 hr Temp Pulse Resp BP BP Pulse Ox 06/25/23 01:05 98 06/25/23 00:50 79 19 95 06/25/23 00:40 72 24 94 L 06/25/23 00:30 77 24 94 L 06/25/23 00:20 75 26 H 96 06/25/23 00:10 73 26 H 95 06/25/23 00:01 121 H 20 95 06/24/23 23:52 85 20 176/79 97 06/24/23 23:50 78 29 H 95 06/24/23 23:32 99 H 24 95 06/24/23 23:00 58 L 16 169/95 98 06/24/23 22:31 71 17 154/133 98 06/24/23 22:30 75 27 H 97 06/24/23 22:20 58 L 21 97 06/24/23 22:10 63 24 97 06/24/23 22:02 55 L 20 99 06/24/23 21:41 99 06/24/23 21:33 59 L 20 98 06/24/23 21:32 68 24 176/101 99 06/24/23 21:10 62 18 158/121 98 06/24/23 21:06 98.7 F 70 29 H 158/121 99 General Appearance: no apparent distress Neurologic Exam: alert, oriented x 3 Ears, Nose, Throat Exam: dry mucous membranes Neck Exam: normal inspection, supple Respiratory Exam: wheezing, No respiratory distress Cardiovascular Exam: regular rate/rhythm Gastrointestinal/Abdomen Exam: soft Extremity Exam: No pedal edema, No swelling Skin Exam: normal color, No rash Results - Labs Lab/Micro Results: Lab Results-Last 24 Hours 06/24/23 06/24/23 06/24/23 Range/Units 21:45 21:45 21:45 WBC 7.7 (4.0-10.5) x10^3/uL RBC 3.18 L (4.1-5.4) x10^6/uL Hgb 9.6 L (12.0-16.0) g/dL Hct 30.5 L (35-47) % MCV 95.9 (78-100) fL MCH 30.2 (26-32) pg MCHC 31.5 L (32-36) g/dL RDW 13.8 (11.5-14.0) % Plt Count 244 (150-450) x10^3/uL MPV 10.4 (7.5-11.0) fL Gran % 75.2 H (36.0-66.0) % Immature Gran % (Auto) 0.3 (0.00-0.4) % Nucleat RBC Rel Count 0.0 (0.00-0.1) % Eos # (Auto) 0.30 (0-0.5) x10^3/uL Immature Gran # (Auto) 0.02 (0.00-0.03) x10^3u/L Absolute Lymphs (auto) 0.94 L (1.0-4.6) x10^3/uL Absolute Monos (auto) 0.60 (0.0-1.3) x10^3/uL Absolute Nucleated RBC 0.00 (0.00-0.01) x10^3u/L Lymphocytes % 12.2 L (24.0-44.0) % Monocytes % 7.8 (0.0-12.0) % Eosinophils % 3.9 (0.00-5.0) % Basophils % 0.6 (0.0-0.4) % Absolute Granulocytes 5.82 (1.4-6.9) x10^3/uL Basophils # 0.05 (0-0.4) x10^3/uL D-Dimer (0.0-0.50) mg/L Sodium 138 (135-145) mmol/L Potassium 3.7 (3.5-5.1) mmol/L Chloride 109 H (98-107) mmol/L Carbon Dioxide 21 L (22-30) mmol/L Anion Gap 12.1 (5-15) MEQ/L BUN 18 H (7-17) mg/dL Creatinine 1.24 H (0.52-1.04) mg/dL Estimated GFR 46.5 ML/MIN Glucose 94 (74-106) mg/dL Calcium 9.2 (8.4-10.2) mg/dL Total Bilirubin 0.30 (0.2-1.3) mg/dL AST 40 H (14-36) U/L ALT 22 (0-35) U/L Alkaline Phosphatase 128 H (38-126) U/L Troponin I (0.000-0.034) ng/mL NT-Pro-B Natriuret Pep (<300) pg/mL Serum Total Protein 6.5 (6.3-8.2) g/dL Albumin 3.8 (3.5-5.0) g/dL Digoxin < 0.4 L (0.8-1.9) ng/mL Influenza Type A Ag (NEGATIVE) Influenza Type B Ag (NEGATIVE) RSV (PCR) (NEGATIVE) SARS-CoV-2 (PCR) (NEGATIVE) 06/24/23 06/24/23 06/24/23 Range/Units 21:45 21:45 21:45 WBC (4.0-10.5) x10^3/uL RBC (4.1-5.4) x10^6/uL Hgb (12.0-16.0) g/dL Hct (35-47) % MCV (78-100) fL MCH (26-32) pg MCHC (32-36) g/dL RDW (11.5-14.0) % Plt Count (150-450) x10^3/uL MPV (7.5-11.0) fL Gran % (36.0-66.0) % Immature Gran % (Auto) (0.00-0.4) % Nucleat RBC Rel Count (0.00-0.1) % Eos # (Auto) (0-0.5) x10^3/uL Immature Gran # (Auto) (0.00-0.03) x10^3u/L Absolute Lymphs (auto) (1.0-4.6) x10^3/uL Absolute Monos (auto) (0.0-1.3) x10^3/uL Absolute Nucleated RBC (0.00-0.01) x10^3u/L Lymphocytes % (24.0-44.0) % Monocytes % (0.0-12.0) % Eosinophils % (0.00-5.0) % Basophils % (0.0-0.4) % Absolute Granulocytes (1.4-6.9) x10^3/uL Basophils # (0-0.4) x10^3/uL D-Dimer 0.40 (0.0-0.50) mg/L Sodium (135-145) mmol/L Potassium (3.5-5.1) mmol/L Chloride (98-107) mmol/L Carbon Dioxide (22-30) mmol/L Anion Gap (5-15) MEQ/L BUN (7-17) mg/dL Creatinine (0.52-1.04) mg/dL Estimated GFR ML/MIN Glucose (74-106) mg/dL Calcium (8.4-10.2) mg/dL Total Bilirubin (0.2-1.3) mg/dL AST (14-36) U/L ALT (0-35) U/L Alkaline Phosphatase (38-126) U/L Troponin I < 0.012 (0.000-0.034) ng/mL NT-Pro-B Natriuret Pep (<300) pg/mL Serum Total Protein (6.3-8.2) g/dL Albumin (3.5-5.0) g/dL Digoxin (0.8-1.9) ng/mL Influenza Type A Ag NEGATIVE (NEGATIVE) Influenza Type B Ag NEGATIVE (NEGATIVE) RSV (PCR) NEGATIVE (NEGATIVE) SARS-CoV-2 (PCR) NEGATIVE (NEGATIVE) 06/24/23 Range/Units 22:30 WBC (4.0-10.5) x10^3/uL RBC (4.1-5.4) x10^6/uL Hgb (12.0-16.0) g/dL Hct (35-47) % MCV (78-100) fL MCH (26-32) pg MCHC (32-36) g/dL RDW (11.5-14.0) % Plt Count (150-450) x10^3/uL MPV (7.5-11.0) fL Gran % (36.0-66.0) % Immature Gran % (Auto) (0.00-0.4) % Nucleat RBC Rel Count (0.00-0.1) % Eos # (Auto) (0-0.5) x10^3/uL Immature Gran # (Auto) (0.00-0.03) x10^3u/L Absolute Lymphs (auto) (1.0-4.6) x10^3/uL Absolute Monos (auto) (0.0-1.3) x10^3/uL Absolute Nucleated RBC (0.00-0.01) x10^3u/L Lymphocytes % (24.0-44.0) % Monocytes % (0.0-12.0) % Eosinophils % (0.00-5.0) % Basophils % (0.0-0.4) % Absolute Granulocytes (1.4-6.9) x10^3/uL Basophils # (0-0.4) x10^3/uL D-Dimer (0.0-0.50) mg/L Sodium (135-145) mmol/L Potassium (3.5-5.1) mmol/L Chloride (98-107) mmol/L Carbon Dioxide (22-30) mmol/L Anion Gap (5-15) MEQ/L BUN (7-17) mg/dL Creatinine (0.52-1.04) mg/dL Estimated GFR ML/MIN Glucose (74-106) mg/dL Calcium (8.4-10.2) mg/dL Total Bilirubin (0.2-1.3) mg/dL AST (14-36) U/L ALT (0-35) U/L Alkaline Phosphatase (38-126) U/L Troponin I (0.000-0.034) ng/mL NT-Pro-B Natriuret Pep (<300) pg/mL Serum Total Protein (6.3-8.2) g/dL Albumin (3.5-5.0) g/dL Digoxin (0.8-1.9) ng/mL Influenza Type A Ag (NEGATIVE) Influenza Type B Ag (NEGATIVE) RSV (PCR) (NEGATIVE) SARS-CoV-2 (PCR) (NEGATIVE) - Radiology Impressions Radiology Exams & Impressions: Radiology Procedures Category Date Time Status CHEST 1 VIEW (PORTABLE) Stat Exams 06/24/23 23:28 Taken - Other Procedures and Tests Respiratory Therapy 06/24/23 21:33 Respiratory Therapy Assessment DAILY Assessment/Plan (1) Shortness of breath Current Visit: Yes Status: Acute Assessment & Plan: Likely from primary respiratory etiology (COPD versus asthma) 1. Admit to hospital 2. DVT/GI prophylaxis 3. Duonebs/steroids 4. Supplemental oxygen, monitor O2 sats Code(s): R06.02 - SHORTNESS OF BREATH (2) Chest pain Current Visit: Yes Status: Acute Assessment & Plan: Likely reactive to breathing issues but does have known coronary artery disease 1. Continue on telemetry 2. Trend troponins 3. Cardio eval 4. ASA/beta august empirically Code(s): R07.9 - CHEST PAIN, UNSPECIFIED (3) Coronary arteriosclerosis Current Visit: Yes Status: Acute (4) Acute kidney injury Current Visit: Yes Status: Acute Assessment & Plan: Likely from prerenal azotemia 1. Gentle IVFs 2. Check urine lytes urine creatinine 3. Follow I/Os 4. Watch electrolytes, creatinine closely Code(s): N17.9 - ACUTE KIDNEY FAILURE, UNSPECIFIED (5) Hypertensive chronic kidney disease with stage 1 through stage 4 chronic kidney disease, or unspecified chronic kidney disease Current Visit: Yes Status: Acute Assessment & Plan: Blood pressure under reasonable control 1. Continue bp meds 2. Low sodium diet 3. Monitor blood pressure readings consistently Code(s): I12.9 - HYPERTENSIVE CHRONIC KIDNEY DISEASE W STG 1-4/UNSP CHR KDNY Telemedicine Encounter - Telemedicine Encounter Telemedicine Encounter: The entirety of this encounter was performed via Telemedicine"
[2023-06-25] MEDS ORDERED: Docusate Sodium 100 MG PO PRN (02:17)
[2023-06-25] MEDS ORDERED: TYLENOL 325 MG PO PRN (02:17)
[2023-06-25 04:33] LABS: Absolute Neutrophil Ct (ANC) 6.07 x10^3/uL (1.4-6.9); BASOPHIL % 0.3 % (0.0-0.4); Basophil (Absolute #) 0.02 x10^3/uL (0-0.4); Eosinophil % 0.1 % (0.00-5.0); Eosinophil (Absolute #) 0.01 x10^3/uL (0-0.5); Hematocrit 33.7 % (35-47); Hemoglobin 10.6 g/dL (12.0-16.0); IMMATURE GRAN # 0.03 x10^3u/L (0.00-0.03); IMMATURE GRAN % 0.4 % (0.00-0.4); Lymphocyte (Absolute #) 0.64 x10^3/uL (1.0-4.6); Lymphocytes % 9.4 % (24.0-44.0); Mean Corpuscular Hemoglobin 30.2 pg (26-32); Mean Corpuscular Hgb Concent. 31.5 g/dL (32-36); Monocyte (Absolute #) 0.06 x10^3/uL (0.0-1.3); Monocytes % 0.9 % (0.0-12.0); Neutrophil % 88.9 % (36.0-66.0); Platelet Count 246 x10^3/uL (150-450); Red Blood Count 3.51 x10^6/uL (4.1-5.4); Red Cell Distribution Width 13.7 % (11.5-14.0); White Blood Count 6.8 x10^3/uL (4.0-10.5)
[2023-06-25 04:43] LABS: ANION GAP 13.4 MEQ/L (5-15); BILIRUBIN,TOTAL 0.4 mg/dL (0.2-1.3); Calcium 9.4 mg/dL (8.4-10.2); EST GLOMERULAR FILTRATION RATE 60.2 ML/MIN; Potassium 3.7 mmol/L (3.5-5.1); Total Protein 6.9 g/dL (6.3-8.2)
[2023-06-25] MEDS ORDERED: solu-MEDROL ONE (06:03)
[2023-06-25] MEDS: solu-MEDROL 40 MG, Sterile H2O 10 ml 1 ML IV SCH (06:04)
[2023-06-25] MEDS ORDERED: Sterile H2O 10 ml IJ ONE (06:04)
[2023-06-25] MEDS ORDERED: APRESOLINE 20 MG/ML INJ IV PRN (07:25)
[2023-06-25] MEDS: DUONEB 0.5-3 MG/3 ml Neb IH SCH (07:34)
[2023-06-25] MEDS: COREG 12.5 MG PO SCH (08:34)
[2023-06-25] MEDS: Cardizem CD PO SCH (08:34)
[2023-06-25] MEDS: Protonix 40MG Tablet PO SCH (08:34)
[2023-06-25] MEDS: ELIQUIS 2.5 MG TABLET PO SCH (08:34)
[2023-06-25] MEDS: Cozaar 50 MG PO SCH (08:34)
[2023-06-25] MEDS: Lanoxin 0.125MG TABLET PO SCH (08:34)
[2023-06-25] MEDS: PLAVIX Tablet PO SCH (08:35)
[2023-06-25] MEDS: Imdur 30 MG PO SCH (08:35)
--- NOTE | 2023-06-25 08:48 | XRAY ---
Indication: Chest pain and short of breath. Comparison: February 18, 2022 Portable chest inflated and now clear. Heart borderline enlarged. Bony thorax intact again with osteopenia and minimal degenerative changes. Impression: Nonacute chest.
--- NOTE | 2023-06-25 08:52 | PCM.DS ---
Discharge Summary Date of Admission: 06/25/23 01:52 Date of Discharge: 06/25/23 Admitting Physician: AISSATOU PRAKASH MD Primary Care Provider: JOSE SOLO Allergies Allergies No Known Drug Allergies Allergy (Verified 06/24/23 22:08) Hospital Summary - Hospital Course Hospital Course: Ms. MADRIGAL is a 73 year old female with a past medical history significant for asthma, hypertension, hyperlipidemia and coronary artery disease status post PTCA/stents. She presented with complaints of shortness of breath for about 3 days associated with some mild chest pain that started yesterday. She was evaluated in the ER with negative EKG/troponin levels but she is still concerned, given her cardiac history. She was given duonebs in ER with some improvement of symptoms and recommended for admission. Today she continues to have some SOB however she is RA 94% and lung sounds are clear. She reports a hx of asthma and she has several family members that smoke in her home. She has asked them to stop and has a sign hanging up yet they refuse to smoke outside. She believes this is what caused her exacerbation yesterday. Advised pt to continue to educate her fmaily to prevent further exacerbations and hospitalizations. She denies CP today. Trop x3 negative. She would like nebs to go home with and reports she has a machine. She denies any further concerns at this time. - Vitals & Intake/Output Vital Signs: Vital Signs Temperature 98.8 F 06/25/23 07:00 Pulse Rate 81 06/25/23 08:34 Respiratory Rate 20 06/25/23 07:39 Blood Pressure 175/78 06/25/23 08:34 O2 Sat by Pulse Oximetry 94 L 06/25/23 07:39 Intake & Output: Intake & Output 06/22/23 06/23/23 06/24/23 06/25/23 11:59 11:59 11:59 11:59 Intake Total 340 Output Total 400 Balance -60 Weight 68.2 kg - Lab Result Diagrams: 06/25/23 04:19 06/25/23 04:19 Lab Results-Last 24 Hrs: Lab Results-Last 24 Hours 06/24/23 06/24/23 06/24/23 Range/Units 21:45 21:45 21:45 WBC 7.7 (4.0-10.5) x10^3/uL RBC 3.18 L (4.1-5.4) x10^6/uL Hgb 9.6 L (12.0-16.0) g/dL Hct 30.5 L (35-47) % MCV 95.9 (78-100) fL MCH 30.2 (26-32) pg MCHC 31.5 L (32-36) g/dL RDW 13.8 (11.5-14.0) % Plt Count 244 (150-450) x10^3/uL MPV 10.4 (7.5-11.0) fL Gran % 75.2 H (36.0-66.0) % Immature Gran % (Auto) 0.3 (0.00-0.4) % Nucleat RBC Rel Count 0.0 (0.00-0.1) % Eos # (Auto) 0.30 (0-0.5) x10^3/uL Immature Gran # (Auto) 0.02 (0.00-0.03) x10^3u/L Absolute Lymphs (auto) 0.94 L (1.0-4.6) x10^3/uL Absolute Monos (auto) 0.60 (0.0-1.3) x10^3/uL Absolute Nucleated RBC 0.00 (0.00-0.01) x10^3u/L Lymphocytes % 12.2 L (24.0-44.0) % Monocytes % 7.8 (0.0-12.0) % Eosinophils % 3.9 (0.00-5.0) % Basophils % 0.6 (0.0-0.4) % Absolute Granulocytes 5.82 (1.4-6.9) x10^3/uL Basophils # 0.05 (0-0.4) x10^3/uL D-Dimer (0.0-0.50) mg/L Sodium 138 (135-145) mmol/L Potassium 3.7 (3.5-5.1) mmol/L Chloride 109 H (98-107) mmol/L Carbon Dioxide 21 L (22-30) mmol/L Anion Gap 12.1 (5-15) MEQ/L BUN 18 H (7-17) mg/dL Creatinine 1.24 H (0.52-1.04) mg/dL Estimated GFR 46.5 ML/MIN Glucose 94 (74-106) mg/dL Calcium 9.2 (8.4-10.2) mg/dL Total Bilirubin 0.30 (0.2-1.3) mg/dL AST 40 H (14-36) U/L ALT 22 (0-35) U/L Alkaline Phosphatase 128 H (38-126) U/L Troponin I (0.000-0.034) ng/mL NT-Pro-B Natriuret Pep (<300) pg/mL Serum Total Protein 6.5 (6.3-8.2) g/dL Albumin 3.8 (3.5-5.0) g/dL Digoxin < 0.4 L (0.8-1.9) ng/mL Influenza Type A Ag (NEGATIVE) Influenza Type B Ag (NEGATIVE) RSV (PCR) (NEGATIVE) SARS-CoV-2 (PCR) (NEGATIVE) 06/24/23 06/24/23 06/24/23 Range/Units 21:45 21:45 21:45 WBC (4.0-10.5) x10^3/uL RBC (4.1-5.4) x10^6/uL Hgb (12.0-16.0) g/dL Hct (35-47) % MCV (78-100) fL MCH (26-32) pg MCHC (32-36) g/dL RDW (11.5-14.0) % Plt Count (150-450) x10^3/uL MPV (7.5-11.0) fL Gran % (36.0-66.0) % Immature Gran % (Auto) (0.00-0.4) % Nucleat RBC Rel Count (0.00-0.1) % Eos # (Auto) (0-0.5) x10^3/uL Immature Gran # (Auto) (0.00-0.03) x10^3u/L Absolute Lymphs (auto) (1.0-4.6) x10^3/uL Absolute Monos (auto) (0.0-1.3) x10^3/uL Absolute Nucleated RBC (0.00-0.01) x10^3u/L Lymphocytes % (24.0-44.0) % Monocytes % (0.0-12.0) % Eosinophils % (0.00-5.0) % Basophils % (0.0-0.4) % Absolute Granulocytes (1.4-6.9) x10^3/uL Basophils # (0-0.4) x10^3/uL D-Dimer 0.40 (0.0-0.50) mg/L Sodium (135-145) mmol/L Potassium (3.5-5.1) mmol/L Chloride (98-107) mmol/L Carbon Dioxide (22-30) mmol/L Anion Gap (5-15) MEQ/L BUN (7-17) mg/dL Creatinine (0.52-1.04) mg/dL Estimated GFR ML/MIN Glucose (74-106) mg/dL Calcium (8.4-10.2) mg/dL Total Bilirubin (0.2-1.3) mg/dL AST (14-36) U/L ALT (0-35) U/L Alkaline Phosphatase (38-126) U/L Troponin I < 0.012 (0.000-0.034) ng/mL NT-Pro-B Natriuret Pep (<300) pg/mL Serum Total Protein (6.3-8.2) g/dL Albumin (3.5-5.0) g/dL Digoxin (0.8-1.9) ng/mL Influenza Type A Ag NEGATIVE (NEGATIVE) Influenza Type B Ag NEGATIVE (NEGATIVE) RSV (PCR) NEGATIVE (NEGATIVE) SARS-CoV-2 (PCR) NEGATIVE (NEGATIVE) 06/24/23 06/25/23 06/25/23 Range/Units 22:30 00:47 04:19 WBC (4.0-10.5) x10^3/uL RBC (4.1-5.4) x10^6/uL Hgb (12.0-16.0) g/dL Hct (35-47) % MCV (78-100) fL MCH (26-32) pg MCHC (32-36) g/dL RDW (11.5-14.0) % Plt Count (150-450) x10^3/uL MPV (7.5-11.0) fL Gran % (36.0-66.0) % Immature Gran % (Auto) (0.00-0.4) % Nucleat RBC Rel Count (0.00-0.1) % Eos # (Auto) (0-0.5) x10^3/uL Immature Gran # (Auto) (0.00-0.03) x10^3u/L Absolute Lymphs (auto) (1.0-4.6) x10^3/uL Absolute Monos (auto) (0.0-1.3) x10^3/uL Absolute Nucleated RBC (0.00-0.01) x10^3u/L Lymphocytes % (24.0-44.0) % Monocytes % (0.0-12.0) % Eosinophils % (0.00-5.0) % Basophils % (0.0-0.4) % Absolute Granulocytes (1.4-6.9) x10^3/uL Basophils # (0-0.4) x10^3/uL D-Dimer (0.0-0.50) mg/L Sodium (135-145) mmol/L Potassium (3.5-5.1) mmol/L Chloride (98-107) mmol/L Carbon Dioxide (22-30) mmol/L Anion Gap (5-15) MEQ/L BUN (7-17) mg/dL Creatinine (0.52-1.04) mg/dL Estimated GFR ML/MIN Glucose (74-106) mg/dL Calcium (8.4-10.2) mg/dL Total Bilirubin (0.2-1.3) mg/dL AST (14-36) U/L ALT (0-35) U/L Alkaline Phosphatase (38-126) U/L Troponin I < 0.012 < 0.012 (0.000-0.034) ng/mL NT-Pro-B Natriuret Pep (<300) pg/mL Serum Total Protein (6.3-8.2) g/dL Albumin (3.5-5.0) g/dL Digoxin (0.8-1.9) ng/mL Influenza Type A Ag (NEGATIVE) Influenza Type B Ag (NEGATIVE) RSV (PCR) (NEGATIVE) SARS-CoV-2 (PCR) (NEGATIVE) 06/25/23 06/25/23 Range/Units 04:19 04:19 WBC 6.8 (4.0-10.5) x10^3/uL RBC 3.51 L (4.1-5.4) x10^6/uL Hgb 10.6 L (12.0-16.0) g/dL Hct 33.7 L (35-47) % MCV 96.0 (78-100) fL MCH 30.2 (26-32) pg MCHC 31.5 L (32-36) g/dL RDW 13.7 (11.5-14.0) % Plt Count 246 (150-450) x10^3/uL MPV 10.0 (7.5-11.0) fL Gran % 88.9 H (36.0-66.0) % Immature Gran % (Auto) 0.4 (0.00-0.4) % Nucleat RBC Rel Count 0.0 (0.00-0.1) % Eos # (Auto) 0.01 (0-0.5) x10^3/uL Immature Gran # (Auto) 0.03 (0.00-0.03) x10^3u/L Absolute Lymphs (auto) 0.64 L (1.0-4.6) x10^3/uL Absolute Monos (auto) 0.06 (0.0-1.3) x10^3/uL Absolute Nucleated RBC 0.00 (0.00-0.01) x10^3u/L Lymphocytes % 9.4 L (24.0-44.0) % Monocytes % 0.9 (0.0-12.0) % Eosinophils % 0.1 (0.00-5.0) % Basophils % 0.3 (0.0-0.4) % Absolute Granulocytes 6.07 (1.4-6.9) x10^3/uL Basophils # 0.02 (0-0.4) x10^3/uL D-Dimer (0.0-0.50) mg/L Sodium 140 (135-145) mmol/L Potassium 3.7 (3.5-5.1) mmol/L Chloride 110 H (98-107) mmol/L Carbon Dioxide 21 L (22-30) mmol/L Anion Gap 13.4 (5-15) MEQ/L BUN 16 (7-17) mg/dL Creatinine 1.00 (0.52-1.04) mg/dL Estimated GFR 60.2 ML/MIN Glucose 157 H (74-106) mg/dL Calcium 9.4 (8.4-10.2) mg/dL Total Bilirubin 0.40 (0.2-1.3) mg/dL AST 30 (14-36) U/L ALT 22 (0-35) U/L Alkaline Phosphatase 150 H (38-126) U/L Troponin I (0.000-0.034) ng/mL NT-Pro-B Natriuret Pep (<300) pg/mL Serum Total Protein 6.9 (6.3-8.2) g/dL Albumin 4.0 (3.5-5.0) g/dL Digoxin (0.8-1.9) ng/mL Influenza Type A Ag (NEGATIVE) Influenza Type B Ag (NEGATIVE) RSV (PCR) (NEGATIVE) SARS-CoV-2 (PCR) (NEGATIVE) - Radiology Exams Ordered Rad Exams-Entire Visit: Radiology Procedures Category Date Time Status CHEST 1 VIEW (PORTABLE) Stat Exams 06/24/23 23:28 Taken - Procedures and Test Procedures and Tests throughout Hospitalization: Therapy Orders & Screens 06/24/23 21:33 Respiratory Therapy Assessment DAILY Comment: 06/25/23 02:17 Respiratory Therapy Consult ONCE Comment: Reason For Exam: Diagnosis: Shortness of breath, chest pain, ACS Discharge Exam General Appearance: no apparent distress, alert Neurologic Exam: alert, oriented x 3, cooperative, normal mood/affect, nml cerebellar function, sensation nml, No motor deficits Eye Exam: PERRL, EOMI, eyes nml inspection Ears, Nose, Throat Exam: normal ENT inspection, pharynx normal, moist mucous membranes Neck Exam: normal inspection, non-tender, supple, full range of motion Respiratory Exam: normal breath sounds, lungs clear, No respiratory distress Cardiovascular Exam: regular rate/rhythm, normal heart sounds Gastrointestinal/Abdomen Exam: soft, No tenderness, No mass Pelvic Exam: deferred Rectal Exam: deferred Back Exam: normal inspection, normal range of motion, No CVA tenderness, No vertebral tenderness Extremity Exam: normal inspection, normal range of motion Skin Exam: normal color, warm, dry Final Diagnosis/Problem List - Final Discharge Diagnosis/Problem (1) Shortness of breath Current Visit: Yes Status: Acute Assessment & Plan: - 2:2 2d hand smoke exposure- asthma exacerbation - RA 94% - lung sounds clear - CXR 06/23: Portable chest inflated and now clear. Heart borderline enlarged. Bony thorax intact again with osteopenia and minimal degenerative changes. Impression: Nonacute chest. -Duonebs/ steriods/ antibiotics - kyara D/C with nebs per pt request Code(s): R06.02 - SHORTNESS OF BREATH (2) Chest pain Current Visit: Yes Status: Acute Assessment & Plan: - resolved - trop x3 negative - tele - EKG Code(s): R07.9 - CHEST PAIN, UNSPECIFIED (3) Coronary arteriosclerosis Current Visit: Yes Status: Chronic Assessment & Plan: - chronic - F/U OP with cardiology (4) Hypertensive chronic kidney disease with stage 1 through stage 4 chronic kidney disease, or unspecified chronic kidney disease Current Visit: Yes Status: Acute Assessment & Plan: Blood pressure under reasonable control 1. Continue bp meds 2. Low sodium diet 3. Monitor blood pressure readings consistently Code(s): I12.9 - HYPERTENSIVE CHRONIC KIDNEY DISEASE W STG 1-4/UNSP CHR KDNY (5) Acute kidney injury Current Visit: Yes Status: Acute Assessment & Plan: Likely from prerenal azotemia 1. Gentle IVFs 2. Check urine lytes urine creatinine 3. Follow I/Os 4. Watch electrolytes, creatinine closely 06/24 - resolved Code(s): N17.9 - ACUTE KIDNEY FAILURE, UNSPECIFIED - Discharge Discharge Date: 06/25/23 Disposition: Home, Self-Care Condition: Stable Prescriptions: Continue Omeprazole 40 mg PO DAILY Albuterol Sulfate [Proair Hfa] 8.5 gm IH BID Isosorbide Mononitrate 30 mg [Imdur 30 MG] 30 mg PO DAILY Digoxin 0.125 mg Tablet [Lanoxin 0.125MG TABLET] 0.125 mg PO DAILY Hydralazine HCl 1.5 tab PO BID Clopidogrel Bisulfate [Plavix] 75 mg PO DAILY Verapamil HCl [Verapamil ER] 120 mg PO HS Carvedilol 12.5 mg [Coreg 12.5 mg] 12.5 mg PO BID Atorvastatin Calcium 40 mg PO DAILY Apixaban [Eliquis] 5 mg PO BID Losartan Potassium 100 mg PO DAILY Alendronate Sodium 70 mg [Fosamax 70 MG] 70 mg PO Q7D@0600 Follow up with: JOSE SOLO [Primary Care Provider] - 07/08/23 10:00 am
[2023-06-25] MEDS ORDERED: ZOCOR 20MG PO SCH (10:00)
[2023-06-25] MEDS ORDERED: ENOXAPARIN SODIUM SQ SCH (10:00)
[2023-06-25] MEDS ORDERED: LIPITOR 40MG PO SCH (10:00)
[2023-06-25] MEDS ORDERED: VENTOLIN COMMON CANISTER IH SCH (10:00)
[2023-06-25] MEDS ORDERED: NON-FORMULARY ITEM (Hydralazine Hcl [Hydralazine Hcl] 50 MG Tablet) PO SCH (10:00)
[2023-06-25] MEDS: Apresoline 25 MG TABLET PO SCH (10:37)
[2023-06-25] MEDS: Zocor 10MG PO SCH (10:37)
[2023-06-25] MEDS: Zithromax 500 MG/ 250 ML NaCl Premix 500 MG/250 ML IVPB IV SCH (10:38)
[2023-06-25 10:55] VITALS: BP 138/87; PULSE 107; RESP 16; TEMP 98.7; O2SAT 91
[2023-06-25] MEDS ORDERED: ISOPTIN SR PO SCH (22:00)
[2023-06-25] MEDS ORDERED: VERAPAMIL HCL 120 MG PO SCH (22:00)
[2023-07-02] MEDS ORDERED: Fosamax 70 MG PO SCH (06:00)
== END 2023-06-25 12:54 | disposition home or self-care (01) ==
LOC: ED 21:02 → MED SURG 06-25 01:52
PROVIDERS: ADMIT Internal Medicine Nephrology; ATTEND Internal Medicine Nephrology
DX: R06.02 Shortness of breath (principal); R07.9 Chest pain, unspecified; I25.10 Atherosclerotic heart disease of native coronary artery without angina pectoris; I12.9 Hypertensive chronic kidney disease with stage 1 through stage 4 chronic kidney disease, or unspecified chronic kidney disease; N17.9 Acute kidney failure, unspecified; E78.5 Hyperlipidemia, unspecified; I25.2 Old myocardial infarction; Z79.899 Other long term (current) drug therapy; Z20.828 Contact with and (suspected) exposure to other viral communicable diseases; Z79.01 Long term (current) use of anticoagulants
CPT/HCPCS: 0241U; 36000; 36415; 71045; 80053; 80162; 83880; 84484; 85025; 85379; 87040; 93005; 93041; 94640; 94760; 94762; 96374; Q3014; 93268; 99285; J0456; J2920; J2930; A9270-GY; G0378

== ENCOUNTER 2024-01-19 14:02 | Observation (INO) | payer MEDICARE ==
--- NOTE | 2024-01-19 14:21 | ERPHSYRPT ---
- History of Present Illness Source: patient Exam Limitations: no limitations Physician History: Patient's had pain for about a month. It in her back it said about the T6 level. She says it radiates up towards her neck at times. She says it lasts about 3 to 4 hours and happens about once a day. Movement makes a little bit worse. Deep breathing does not make it worse. She has not had any chest pain or shortness of breath. She has some nausea and vomiting and has had a low- grade temperature. Is been around 100 degrees. She has a cardiac history. She decided to come in today at the insistence of one of her relatives. She said that the symptoms did not get a lot worse today is just been going on for a month. Allergies/Adverse Reactions: No Known Drug Allergies Allergy (Verified 01/19/24 14:06) Home Medications: Omeprazole 40 mg PO DAILY 10/06/15 [History] Albuterol Sulfate [Proair Hfa] 8.5 gm IH BID 10/18/15 [History] Alendronate Sodium 70 mg [Fosamax 70 MG] 70 mg PO Q7D@0600 06/24/23 [History] Apixaban [Eliquis] 5 mg PO BID 06/24/23 [History] Atorvastatin Calcium 40 mg PO DAILY 06/24/23 [History] Carvedilol 12.5 mg [Coreg 12.5 mg] 12.5 mg PO BID 06/24/23 [History] Clopidogrel Bisulfate [Plavix] 75 mg PO DAILY 06/24/23 [History] Digoxin 0.125 mg Tablet [Lanoxin 0.125MG TABLET] 0.125 mg PO DAILY 06/24/23 [History] Hydralazine HCl 1.5 tab PO BID 06/24/23 [History] Isosorbide Mononitrate 30 mg [Imdur 30 MG] 30 mg PO DAILY 06/24/23 [History] Losartan Potassium 100 mg PO DAILY 06/24/23 [History] Verapamil HCl [Verapamil ER] 120 mg PO HS 06/24/23 [History] Hx Tetanus, Diphtheria Vaccination/Date Given: Yes Hx Influenza Vaccination/Date Given: Yes Hx Pneumococcal Vaccination/Date Given: No Travel Risk - Emerging Infectious Disease Are you exhibiting symptoms associated with any current EIDs: No - Review of Systems Constitutional: No Symptoms Eyes: No Symptoms Respiratory: No Symptoms Cardiac: No Symptoms Abdominal/Gastrointestinal: Nausea, Vomiting Genitourinary Symptoms: No Symptoms Musculoskeletal: Back Pain Skin: No Symptoms Neurological: No Symptoms Psychological: No Symptoms - Past Medical History Pertinent Past Medical History: Yes Neurological History: Migraines ENT History: No Pertinent History Cardiac History: Arrhythmia, Coronary Artery Disease, Hypertension, Myocardial Infarction (PR) Respiratory History: Asthma, Bronchitis, COPD Endocrine Medical History: No Pertinent History Musculoskeletal History: Arthritis, Osteoarthritis, Osteoporosis GI Medical History: GERD, Ulcer History: No Pertinent History Psycho-Social History: Anxiety Female Reproductive Disorders: No Pertinent History Other Medical History: CARDIAC STENTS X2 JAN 2022 POST PR. CARDIAC STENT X1 SEPTEMBER 2022 POST PR. BILAT TKR > 5YRS AGO. PAC's - Past Surgical History Past Surgical History: Yes Neuro Surgical History: No Pertinent History Cardiac: Cardiac Stent Respiratory: No Pertinent History Gastrointestinal: Appendectomy Genitourinary: No Pertinent History Musculoskeletal: Orthopedic Surgery Female Surgical History: Hysterectomy, Tubal Ligation Other Surgical History: teddy knee replacement x2 - Social History Smoking Status: Never smoker Exposure to second hand smoke: No Drug Use: none Patient Lives Alone: No - Social Determinants of Health Will the patient participate in the screening: Yes Do you worry about a steady place to live?: No In the past 12 months,have you had to go without utilities?: No Transportation Issues: No Has anyone in your support network made you feel unsafe?: No Have you or anyone in your house had to go without enough: No - Nursing Vital Signs Nursing Vital Signs: Initial Vital Signs Pulse Rate 74 01/19/24 14:03 Respiratory Rate 26 H 01/19/24 14:03 Blood Pressure 166/94 01/19/24 14:03 O2 Sat by Pulse Oximetry 97 01/19/24 14:03 Pain Scale Pain Intensity 4 - Physical Exam General Appearance: no apparent distress Eye Exam: PERRL/EOMI Neck Exam: normal inspection Respiratory Exam: normal breath sounds, lungs clear, No chest tenderness, No respiratory distress Cardiovascular Exam: regular rate/rhythm, normal heart sounds, normal peripheral pulses Gastrointestinal/Abdomen Exam: soft, normal bowel sounds, No tenderness, No distention, No mass Back Exam: normal inspection, normal range of motion Extremity Exam: normal inspection, normal range of motion Neurologic Exam: alert, oriented x 3, cooperative, normal mood/affect Skin Exam: normal color, warm SpO2: 97 O2 Delivery: Room Air - Course Nursing assessment & vital signs reviewed: Yes EKG Interpreted by Me: RATE, Sinus Rhythm, NORMAL AXIS, Non-specific ST Changes Ordered Tests: Active Orders 24 hr Category Date Time Status Up Ad Tricia TOLERATED Activity 01/19/24 15:44 Ordered Putty Mixer STAT Care 01/19/24 14:24 Active Code Status Order ROUTINE Care 01/19/24 15:43 Ordered EKG-ER Only STAT Care 01/19/24 14:22 Active IV Insertion STAT Care 01/19/24 14:17 Active Intake and Output Q12H Care 01/19/24 15:[address] in Observation ROUTINE Care 01/19/24 15:41 Ordered Vital Signs Q8H Care 01/19/24 15:41 Ordered House Regular Diet Diet 01/19/24 Lunch Ordered ABDOMEN AND PELVIS W/0 CONTRAS [CT] Stat Exams 01/19/24 15:40 Ordered CHEST 1 VIEW (PORTABLE) Stat Exams 01/19/24 14:22 Completed BLOOD CULTURE Stat Lab 01/19/24 14:34 Received BMP AM.LAB Lab 01/20/24 04:00 Ordered CBC W DIFF Stat Lab 01/19/24 14:10 Completed CMP Stat Lab 01/19/24 14:10 Completed D-DIMER QUANTITATIVE Stat Lab 01/19/24 14:10 Completed LIPASE Stat Lab 01/19/24 14:10 Completed Lactic Acid Stat Lab 01/19/24 14:22 Completed MAG [MAGNESIUM] Stat Lab 01/19/24 14:10 Completed NT PRO BNPII AM.LAB Lab 01/20/24 04:00 Ordered TROPONIN Q4H Lab 01/19/24 14:10 Completed TROPONIN Q4H Lab 01/19/24 18:30 Ordered TROPONIN Q4H Lab 01/19/24 22:30 Ordered UA W/RFX UR CULTURE Stat Lab 01/19/24 15:03 Completed Lab/Rad Data: Laboratory Result Diagrams 01/19/24 14:10 01/19/24 14:10 Laboratory Results 01/19/24 01/19/24 01/19/24 Range/Units 15:03 14:40 14:22 WBC (3.98-10.04) x10^3/uL RBC (3.93-5.22) x10^6/uL Hgb (11.2-15.7) g/dL Hct (34.1-44.9) % MCV (79.4-94.8) fL MCH (25.6-32.2) pg MCHC (32.2-35.5) g/dL RDW (11.7-14.4) % Plt Count (182-369) x10^3/uL MPV (9.4-12.3) fL Gran % (34.0-71.1) % Immature Gran % (Auto) (0.001-0.429) % Nucleat RBC Rel Count (0.00-0.2) % Eos # (Auto) (0.04-0.36) x10^3/uL Immature Gran # (Auto) (0.001-0.031) x10^3u/L Absolute Lymphs (auto) (1.18-3.74) x10^3/uL Absolute Monos (auto) (0.24-0.86) x10^3/uL Absolute Nucleated RBC (0.00-0.012) x10^3u/L Lymphocytes % (19.3-51.7) % Monocytes % (4.7-12.5) % Eosinophils % (0.7-5.8) % Basophils % (0.1-1.2) % Absolute Granulocytes (1.56-6.13) x10^3/uL Basophils # (0.01-0.08) x10^3/uL D-Dimer (0.0-0.50) mg/L Sodium (135-145) mmol/L Potassium (3.5-5.1) mmol/L Chloride (98-107) mmol/L Carbon Dioxide (22-30) mmol/L Anion Gap (5-15) MEQ/L BUN (7-17) mg/dL Creatinine (0.52-1.04) mg/dL Estimated GFR ML/MIN Glucose (74-106) mg/dL Lactic Acid 0.6 (0.4-2.0) Calcium (8.4-10.2) mg/dL Magnesium (1.6-2.3) mg/dL Total Bilirubin (0.2-1.3) mg/dL AST (14-36) U/L ALT (0-35) U/L Alkaline Phosphatase (38-126) U/L Troponin I (0.000-0.033) ng/mL Serum Total Protein (6.3-8.2) g/dL Albumin (3.5-5.0) g/dL Lipase (23-300) U/L Urine Color Yellow (Yellow) Urine Appearance Clear (Clear) Urine pH 5.5 (4.6-8.0) Ur Specific Pip[place] 1.010 (1.005-1.030) Urine Protein Negative (Negative) Urine Glucose (UA) Negative (Negative) mg/dL Urine Ketones Negative (Negative) Urine Blood Negative (Negative) Urine Nitrite Negative (Negative) Urine Bilirubin Negative (Negative) Urine Urobilinogen 0.2 (0.2) mg/dL Ur Leukocyte Esterase Negative (Negative) U Hyaline Cast (Auto) NONE SEEN (0-2) /LPF Urine Microscopic RBC 6-10 A (0-5) /HPF Urine Microscopic WBC NONE (0-5) /HPF Ur Epithelial Cells Rare (None Seen) /HPF Urine Bacteria None Seen (None Seen) /HPF Urine Culture Reflexed NO (NO) Influenza Type A Ag NEGATIVE (NEGATIVE) Influenza Type B Ag NEGATIVE (NEGATIVE) RSV (PCR) NEGATIVE (NEGATIVE) SARS-CoV-2 (PCR) NEGATIVE (NEGATIVE) 01/19/24 01/19/24 01/19/24 Range/Units 14:10 14:10 14:10 WBC (3.98-10.04) x10^3/uL RBC (3.93-5.22) x10^6/uL Hgb (11.2-15.7) g/dL Hct (34.1-44.9) % MCV (79.4-94.8) fL MCH (25.6-32.2) pg MCHC (32.2-35.5) g/dL RDW (11.7-14.4) % Plt Count (182-369) x10^3/uL MPV (9.4-12.3) fL Gran % (34.0-71.1) % Immature Gran % (Auto) (0.001-0.429) % Nucleat RBC Rel Count (0.00-0.2) % Eos # (Auto) (0.04-0.36) x10^3/uL Immature Gran # (Auto) (0.001-0.031) x10^3u/L Absolute Lymphs (auto) (1.18-3.74) x10^3/uL Absolute Monos (auto) (0.24-0.86) x10^3/uL Absolute Nucleated RBC (0.00-0.012) x10^3u/L Lymphocytes % (19.3-51.7) % Monocytes % (4.7-12.5) % Eosinophils % (0.7-5.8) % Basophils % (0.1-1.2) % Absolute Granulocytes (1.56-6.13) x10^3/uL Basophils # (0.01-0.08) x10^3/uL D-Dimer 0.41 (0.0-0.50) mg/L Sodium 139 (135-145) mmol/L Potassium 4.7 (3.5-5.1) mmol/L Chloride 110 H (98-107) mmol/L Carbon Dioxide 18 L (22-30) mmol/L Anion Gap 15.6 H (5-15) MEQ/L BUN 32 H (7-17) mg/dL Creatinine 2.17 H (0.52-1.04) mg/dL Estimated GFR 23.8 ML/MIN Glucose 100 (74-106) mg/dL Lactic Acid (0.4-2.0) Calcium 8.5 (8.4-10.2) mg/dL Magnesium 1.8 (1.6-2.3) mg/dL Total Bilirubin 0.50 (0.2-1.3) mg/dL AST 40 H (14-36) U/L ALT 20 (0-35) U/L Alkaline Phosphatase 125 (38-126) U/L Troponin I < 0.012 (0.000-0.033) ng/mL Serum Total Protein 6.0 L (6.3-8.2) g/dL Albumin 3.7 (3.5-5.0) g/dL Lipase 146 (23-300) U/L Urine Color (Yellow) Urine Appearance (Clear) Urine pH (4.6-8.0) Ur Specific Pipestem (1.005-1.030) Urine Protein (Negative) Urine Glucose (UA) (Negative) mg/dL Urine Ketones (Negative) Urine Blood (Negative) Urine Nitrite (Negative) Urine Bilirubin (Negative) Urine Urobilinogen (0.2) mg/dL Ur Leukocyte Esterase (Negative) U Hyaline Cast (Auto) (0-2) /LPF Urine Microscopic RBC (0-5) /HPF Urine Microscopic WBC (0-5) /HPF Ur Epithelial Cells (None Seen) /HPF Urine Bacteria (None Seen) /HPF Urine Culture Reflexed (NO) Influenza Type A Ag (NEGATIVE) Influenza Type B Ag (NEGATIVE) RSV (PCR) (NEGATIVE) SARS-CoV-2 (PCR) (NEGATIVE) 01/19/24 Range/Units 14:10 WBC 12.3 H (3.98-10.04) x10^3/uL RBC 3.14 L (3.93-5.22) x10^6/uL Hgb 9.5 L (11.2-15.7) g/dL Hct 29.7 L (34.1-44.9) % MCV 94.6 (79.4-94.8) fL MCH 30.3 (25.6-32.2) pg MCHC 32.0 L (32.2-35.5) g/dL RDW 13.8 (11.7-14.4) % Plt Count 224 (182-369) x10^3/uL MPV 10.4 (9.4-12.3) fL Gran % 82.3 H (34.0-71.1) % Immature Gran % (Auto) 0.4 (0.001-0.429) % Nucleat RBC Rel Count 0.0 (0.00-0.2) % Eos # (Auto) 0.20 (0.04-0.36) x10^3/uL Immature Gran # (Auto) 0.05 H (0.001-0.031) x10^3u/L Absolute Lymphs (auto) 1.02 L (1.18-3.74) x10^3/uL Absolute Monos (auto) 0.87 H (0.24-0.86) x10^3/uL Absolute Nucleated RBC 0.00 (0.00-0.012) x10^3u/L Lymphocytes % 8.3 L (19.3-51.7) % Monocytes % 7.1 (4.7-12.5) % Eosinophils % 1.6 (0.7-5.8) % Basophils % 0.3 (0.1-1.2) % Absolute Granulocytes 10.10 H (1.56-6.13) x10^3/uL Basophils # 0.04 (0.01-0.08) x10^3/uL D-Dimer (0.0-0.50) mg/L Sodium (135-145) mmol/L Potassium (3.5-5.1) mmol/L Chloride (98-107) mmol/L Carbon Dioxide (22-30) mmol/L Anion Gap (5-15) MEQ/L BUN (7-17) mg/dL Creatinine (0.52-1.04) mg/dL Estimated GFR ML/MIN Glucose (74-106) mg/dL Lactic Acid (0.4-2.0) Calcium (8.4-10.2) mg/dL Magnesium (1.6-2.3) mg/dL Total Bilirubin (0.2-1.3) mg/dL AST (14-36) U/L ALT (0-35) U/L Alkaline Phosphatase (38-126) U/L Troponin I (0.000-0.033) ng/mL Serum Total Protein (6.3-8.2) g/dL Albumin (3.5-5.0) g/dL Lipase (23-300) U/L Urine Color (Yellow) Urine Appearance (Clear) Urine pH (4.6-8.0) Ur Specific Pipestem (1.005-1.030) Urine Protein (Negative) Urine Glucose (UA) (Negative) mg/dL Urine Ketones (Negative) Urine Blood (Negative) Urine Nitrite (Negative) Urine Bilirubin (Negative) Urine Urobilinogen (0.2) mg/dL Ur Leukocyte Esterase (Negative) U Hyaline Cast (Auto) (0-2) /LPF Urine Microscopic RBC (0-5) /HPF Urine Microscopic WBC (0-5) /HPF Ur Epithelial Cells (None Seen) /HPF Urine Bacteria (None Seen) /HPF Urine Culture Reflexed (NO) Influenza Type A Ag (NEGATIVE) Influenza Type B Ag (NEGATIVE) RSV (PCR) (NEGATIVE) SARS-CoV-2 (PCR) (NEGATIVE) - Progress Progress: improved Progress Note: Patient was stable throughout stay. On the differential was coronary vascular event, pulmonary embolism, mechanical back pain, gastroenteritis, pyelonephritis, COVID flu and RSV. Her labs look good except for she was dehydrated. She did have a few red cells in her urine so going to get a CT. EKG showed no acute findings. Her D-dimer was not elevated. Her troponins were not elevated. At this time I think her nausea may be coming from some dehydration. Her BUN and creatinine were both elevated. We are going to admit her and hydrate her. I will give her some medication for nausea. I spoke with the hospitalist and he agreed to admit the patient. 01/19/24 15:[address] DrNikhil: [place] Will see patient in: hospital (observation) Medical Desision Making - Independent Historian Additional History obtained from: Family - Discussion of managment Care discussed with:: hospitalist Reviewed:: Test results Agreed on:: Treatment plan, place in obs Will see patient: in hospital - Social Determinants of Health Pt's dx & treatment plan are significantly limited by SDOH: limited education - Diagnostic Testing Diagnostic test were ordered, analyzed, and reviewed by me: Yes - Risk of complications Low Risk: Low risk of morbidity from additional dx testing or treatment - Departure Departure Disposition: Observation Clinical Impression: Elevated serum creatinine, Back pain, Fatigue Condition: Good Critical Care Time: No Referrals: JOSE SOLO [Primary Care Provider] - Follow up/PCP as directed
--- NOTE | 2024-01-19 14:36 | XRAY ---
Indication: Cough. Comparison: June 24, 2023 Portable apical lordotic chest is now rotated and remains clear. Heart again borderline enlarged. Bony thorax intact again with osteopenia and minimal degenerative changes. Impression: Continued nonacute chest.
[2024-01-19 14:44] LABS: BASOPHIL % 0.3 % (0.1-1.2); Basophil (Absolute #) 0.04 x10^3/uL (0.01-0.08); Eosinophil % 1.6 % (0.7-5.8); Hematocrit 29.7 % (34.1-44.9); Hemoglobin 9.5 g/dL (11.2-15.7); IMMATURE GRAN # 0.05 x10^3u/L (0.001-0.031); IMMATURE GRAN % 0.4 % (0.001-0.429); Lymphocyte (Absolute #) 1.02 x10^3/uL (1.18-3.74); Lymphocytes % 8.3 % (19.3-51.7); Mean Cell Volume 94.6 fL (79.4-94.8); Mean Corpuscular Hemoglobin 30.3 pg (25.6-32.2); Mean Platelet Volume 10.4 fL (9.4-12.3); Monocyte (Absolute #) 0.87 x10^3/uL (0.24-0.86); Monocytes % 7.1 % (4.7-12.5); Neutrophil % 82.3 % (34.0-71.1); Platelet Count 224 x10^3/uL (182-369); Red Blood Count 3.14 x10^6/uL (3.93-5.22); Red Cell Distribution Width 13.8 % (11.7-14.4); White Blood Count 12.3 x10^3/uL (3.98-10.04)
[2024-01-19 15:00] LABS: ALBUMIN 3.7 g/dL (3.5-5.0); ANION GAP 15.6 MEQ/L (5-15); BILIRUBIN,TOTAL 0.5 mg/dL (0.2-1.3); Calcium 8.5 mg/dL (8.4-10.2); Creatinine 1 2.17 mg/dL (0.52-1.04); EST GLOMERULAR FILTRATION RATE 23.8 ML/MIN; MAGNESIUM 1.8 mg/dL (1.6-2.3); Potassium 4.7 mmol/L (3.5-5.1)
[2024-01-19 15:19] LABS: Appearance Clear (Clear); Bacteria None Seen /HPF (None Seen); Bilirubin Negative (Negative); Blood Negative (Negative); Glucose, Urine Negative (Negative); Hyaline Casts NONE SEEN /LPF (0-2); Ketones Negative (Negative); Leukocyte Esterase Negative (Negative); Nitrite Negative (Negative); Ph 5.5 (4.6-8.0); Protein,Urine Dip Negative (Negative); Urobilinogen 0.2 mg/dL (0.2)
[2024-01-19 15:20] LABS: Epithelial Cells Rare /HPF (None Seen)
[2024-01-19 15:21] LABS: INFLUENZA A NEGATIVE (NEGATIVE); INFLUENZA B NEGATIVE (NEGATIVE); RESPIRATORY SYNCTIAL VIRUS NEGATIVE (NEGATIVE); SARS-CoV-2 Xpert Express NEGATIVE (NEGATIVE)
[2024-01-19] MEDS: Sodium Chloride 0.9% 1000 ML 1,000 ML IV SCH (15:47)
[2024-01-19] MEDS: TYLENOL 325 MG PO PRN (15:50)
--- NOTE | 2024-01-19 16:50 | XRAY ---
Indication: Back pain. Hematuria. Multiple contiguous axial images obtained through abdomen and pelvis without contrast using renal stone protocol. Comparison: October 06, 2015 Lung bases clear. Heart is now borderline enlarged. New moderate size hiatal hernia with partial intrathoracic stomach. No renal calculus or evidence for obstructive uropathy either system. Noncontrasted stomach and bowel loops appear nonobstructed. Minimal scattered colonic diverticulosis without diverticulitis. Appendectomy and hysterectomy reported. Stable 1 cm right mid renal cortical cyst. No free fluid/air. Remaining liver, pancreas, spleen, adrenal glands, kidneys, ureters, and bladder are unremarkable for noncontrast exam. Mild scattered aortoiliac calcifications without AAA. Osseous structures intact. Grossly stable far right lateral flank fatty hernia again extending into oblique muscles.. Impression: 1. Continued negative renal calculus or evidence for obstructive uropathy. 2. New borderline cardiomegaly and hiatal hernia with partial intrathoracic stomach. 3. Again chronic findings including right renal cyst, arteriosclerotic disease, and far right flank fatty hernia.
[2024-01-19] MEDS ORDERED: PROVENTIL 2.5 MG/3 ML NEB IH PRN (17:00)
--- NOTE | 2024-01-19 17:02 | PCM.HP ---
History of Present Illness - Chief Complaint Chief Complaint: dehydration Date: 01/19/24 History of Present Illness: is a 73 year old female with PMHX of migraines, a-fib on plavix and eliquis, CAD, HTN, VT, Asthma, bronchitis, COPD, OA, Osteoporosis, GERD, Ulcer, and anxiety. Pt reports back pain for about 1 month at the T6 level. She denies any recent fall or injury. She states it radiates up towards her neck at times. She says it lasts about 3 to 4 hours and happens about once a day. Movement makes a little bit worse. Deep breathing does not make it worse. She has not had any chest pain or shortness of breath. She has some nausea and vomiting and has had a low-grade temperature around 100 degrees. She decided to come in today at the insistence of one of her relatives. She said that the symptoms did not get a lot worse today is just been going on for a month. She last vomited yesterday at 1pm and admits she has not been eating or drinking well since Friday when N/V started. Flu/ COVID/RSV negative. CT abd pelvis, and CXR non-concerning. She admits to feeling somewhat SOB and may be r/t anxiety. CXR shows cardiomegaly and she reports this is not new information and follows Dr. Kwan in [facility]. IVF started in ER for dehydration. Will keep overnight and likely d/c tomorrow. - Review of Systems Constitutional: No Fever, No Chills Eyes: No Symptoms Ears, Nose, & Throat: No Symptoms Respiratory: Short Of Breath, No Cough Cardiac: No Chest Pain, No Edema, No Syncope Abdominal/Gastrointestinal: Nausea, Vomiting, No Abdominal Pain, No Diarrhea Genitourinary Symptoms: No Dysuria Musculoskeletal: Back Pain, Neck Pain Skin: No Rash Neurological: No Dizziness, No Focal Weakness, No Sensory Changes Psychological: No Symptoms Endocrine: No Symptoms Hematologic/Lymphatic: No Symptoms Immunological/Allergic: No Symptoms Medications & Allergies Home Medications: Home Medication List Omeprazole 40 mg PO DAILY 10/06/15 [History Confirmed 01/19/24] Albuterol Sulfate [Proair Hfa] 8.5 gm IH BID 10/18/15 [History Confirmed 01/19/24] Alendronate Sodium 70 mg [Fosamax 70 MG] 70 mg PO Q7D@0600 06/24/23 [History Confirmed 01/19/24] Apixaban [Eliquis] 5 mg PO BID 06/24/23 [History Confirmed 01/19/24] Atorvastatin Calcium 40 mg PO DAILY 06/24/23 [History Confirmed 01/19/24] Carvedilol 12.5 mg [Coreg 12.5 mg] 12.5 mg PO BID 06/24/23 [History Confirmed 01/19/24] Clopidogrel Bisulfate [Plavix] 75 mg PO DAILY 06/24/23 [History Confirmed 01/19/24] Digoxin 0.125 mg Tablet [Lanoxin 0.125MG TABLET] 0.125 mg PO DAILY 06/24/23 [History Confirmed 01/19/24] Hydralazine HCl 1.5 tab PO BID 06/24/23 [History Confirmed 01/19/24] Isosorbide Mononitrate 30 mg [Imdur 30 MG] 30 mg PO DAILY 06/24/23 [History Confirmed 01/19/24] Losartan Potassium 100 mg PO DAILY 06/24/23 [History Confirmed 01/19/24] Verapamil HCl [Verapamil ER] 120 mg PO HS 06/24/23 [History Confirmed 01/19/24] Albuterol 2.5 mg/3 ml Neb [Proventil 2.5 mg/3 ml Neb] 2.5 mg IH Q6H PRN PRN 8 Days #30 06/25/23 [Rx Confirmed 01/19/24] Allergies/Adverse Reactions: Allergies Allergy/AdvReac Type Severity Reaction Status Date / Time No Known Drug Allergies Allergy Verified 01/19/24 14:06 - Past Medical History Past Medical History: Yes Neurological History: Migraines ENT History: No Pertinent History Cardiac History: Arrhythmia, Coronary Artery Disease, Hypertension, Myocardial Infarction (VT) Respiratory History: Asthma, Bronchitis, COPD Endocrine Medical History: No Pertinent History Musculoskelatal History: Arthritis, Osteoarthritis, Osteoporosis GI Medical History: GERD, Ulcer History: No Pertinent History Pyscho-Social History: Anxiety Reproductive Disorders: No Pertinent History Comment: CARDIAC STENTS X2 JAN 2022 POST [place]. CARDIAC STENT X1 SEPTEMBER 2022 POST [place]. BILAT TKR > 5YRS AGO. PAC's - Past Surgical History Past Surgical History: Yes Neuro Surgical History: No Pertinent History Cardiac History: Cardiac Stent Respiratory Surgery: No Pertinent History GI Surgical History: Appendectomy Genitourinary Surgical Hx: No Pertinent History Musculskeletal Surgical Hx: Orthopedic Surgery Female Surgical History: Hysterectomy, Tubal Ligation Other Surgical History: teddy knee replacement x2 Significant Family History: no pertinent family hx - Social History Smoking Status: Never smoker Exposure to second hand smoke: No Alcohol: None Drug Use: none - Social Determinants of Health Will the patient participate in the screening: Yes Do you worry about a steady place to live?: No Do you have any problems with any of the following?: No known problems In the past 12 months,have you had to go without utilities?: No Have you or anyone in your house had to go without enough: No Transportation Issues: No Has anyone in your support network made you feel unsafe?: No Does the patient want assistance with any of the above?: No - Physical Exam Vital Signs: Vital Signs - 24 hr Temp Pulse Resp BP BP Pulse Ox 01/19/24 16:13 98.4 F 69 16 145/99 96 01/19/24 16:02 71 22 174/74 97 01/19/24 16:01 97 01/19/24 16:00 72 18 174/74 98 01/19/24 15:30 67 156/72 97 01/19/24 15:20 69 97 01/19/24 15:10 72 97 01/19/24 15:03 88 24 94 L 01/19/24 14:30 76 15 167/74 98 01/19/24 14:05 99.8 F 74 22 166/94 97 01/19/24 14:03 74 26 H 166/94 97 General Appearance: no apparent distress, alert Neurologic Exam: alert, oriented x 3, cooperative, normal mood/affect, nml cerebellar function, nml station & gait, sensation nml, No motor deficits Eye Exam: PERRL/EOMI, eyes nml inspection Ears, Nose, Throat Exam: normal ENT inspection, TMs normal, pharynx normal, moist mucous membranes Neck Exam: normal inspection, non-tender, supple, full range of motion Respiratory Exam: normal breath sounds, lungs clear, No respiratory distress Cardiovascular Exam: regular rate/rhythm, normal heart sounds, normal peripheral pulses Gastrointestinal/Abdomen Exam: soft, normal bowel sounds, No tenderness, No mass Back Exam: normal inspection, normal range of motion, No CVA tenderness, No vertebral tenderness Extremity Exam: normal inspection, normal range of motion, pelvis stable Skin Exam: normal color, warm, dry, No rash Lymphatic Exam: No adenopathy Results - Labs Lab/Micro Results: Lab Results-Last 24 Hours 01/19/24 01/19/24 01/19/24 Range/Units 14:10 14:10 14:10 WBC 12.3 H (3.98-10.04) x10^3/uL RBC 3.14 L (3.93-5.22) x10^6/uL Hgb 9.5 L (11.2-15.7) g/dL Hct 29.7 L (34.1-44.9) % MCV 94.6 (79.4-94.8) fL MCH 30.3 (25.6-32.2) pg MCHC 32.0 L (32.2-35.5) g/dL RDW 13.8 (11.7-14.4) % Plt Count 224 (182-369) x10^3/uL MPV 10.4 (9.4-12.3) fL Gran % 82.3 H (34.0-71.1) % Immature Gran % (Auto) 0.4 (0.001-0.429) % Nucleat RBC Rel Count 0.0 (0.00-0.2) % Eos # (Auto) 0.20 (0.04-0.36) x10^3/uL Immature Gran # (Auto) 0.05 H (0.001-0.031) x10^3u/L Absolute Lymphs (auto) 1.02 L (1.18-3.74) x10^3/uL Absolute Monos (auto) 0.87 H (0.24-0.86) x10^3/uL Absolute Nucleated RBC 0.00 (0.00-0.012) x10^3u/L Lymphocytes % 8.3 L (19.3-51.7) % Monocytes % 7.1 (4.7-12.5) % Eosinophils % 1.6 (0.7-5.8) % Basophils % 0.3 (0.1-1.2) % Absolute Granulocytes 10.10 H (1.56-6.13) x10^3/uL Basophils # 0.04 (0.01-0.08) x10^3/uL D-Dimer 0.41 (0.0-0.50) mg/L Sodium 139 (135-145) mmol/L Potassium 4.7 (3.5-5.1) mmol/L Chloride 110 H (98-107) mmol/L Carbon Dioxide 18 L (22-30) mmol/L Anion Gap 15.6 H (5-15) MEQ/L BUN 32 H (7-17) mg/dL Creatinine 2.17 H (0.52-1.04) mg/dL Estimated GFR 23.8 ML/MIN Glucose 100 (74-106) mg/dL Lactic Acid (0.4-2.0) Calcium 8.5 (8.4-10.2) mg/dL Magnesium 1.8 (1.6-2.3) mg/dL Total Bilirubin 0.50 (0.2-1.3) mg/dL AST 40 H (14-36) U/L ALT 20 (0-35) U/L Alkaline Phosphatase 125 (38-126) U/L Troponin I (0.000-0.033) ng/mL Serum Total Protein 6.0 L (6.3-8.2) g/dL Albumin 3.7 (3.5-5.0) g/dL Lipase 146 (23-300) U/L Urine Color (Yellow) Urine Appearance (Clear) Urine pH (4.6-8.0) Ur Specific [place] (1.005-1.030) Urine Protein (Negative) Urine Glucose (UA) (Negative) mg/dL Urine Ketones (Negative) Urine Blood (Negative) Urine Nitrite (Negative) Urine Bilirubin (Negative) Urine Urobilinogen (0.2) mg/dL Ur Leukocyte Esterase (Negative) U Hyaline Cast (Auto) (0-2) /LPF Urine Microscopic RBC (0-5) /HPF Urine Microscopic WBC (0-5) /HPF Ur Epithelial Cells (None Seen) /HPF Urine Bacteria (None Seen) /HPF Urine Culture Reflexed (NO) Influenza Type A Ag (NEGATIVE) Influenza Type B Ag (NEGATIVE) RSV (PCR) (NEGATIVE) SARS-CoV-2 (PCR) (NEGATIVE) 01/19/24 01/19/24 01/19/24 Range/Units 14:10 14:22 14:40 WBC (3.98-10.04) x10^3/uL RBC (3.93-5.22) x10^6/uL Hgb (11.2-15.7) g/dL Hct (34.1-44.9) % MCV (79.4-94.8) fL MCH (25.6-32.2) pg MCHC (32.2-35.5) g/dL RDW (11.7-14.4) % Plt Count (182-369) x10^3/uL MPV (9.4-12.3) fL Gran % (34.0-71.1) % Immature Gran % (Auto) (0.001-0.429) % Nucleat RBC Rel Count (0.00-0.2) % Eos # (Auto) (0.04-0.36) x10^3/uL Immature Gran # (Auto) (0.001-0.031) x10^3u/L Absolute Lymphs (auto) (1.18-3.74) x10^3/uL Absolute Monos (auto) (0.24-0.86) x10^3/uL Absolute Nucleated RBC (0.00-0.012) x10^3u/L Lymphocytes % (19.3-51.7) % Monocytes % (4.7-12.5) % Eosinophils % (0.7-5.8) % Basophils % (0.1-1.2) % Absolute Granulocytes (1.56-6.13) x10^3/uL Basophils # (0.01-0.08) x10^3/uL D-Dimer (0.0-0.50) mg/L Sodium (135-145) mmol/L Potassium (3.5-5.1) mmol/L Chloride (98-107) mmol/L Carbon Dioxide (22-30) mmol/L Anion Gap (5-15) MEQ/L BUN (7-17) mg/dL Creatinine (0.52-1.04) mg/dL Estimated GFR ML/MIN Glucose (74-106) mg/dL Lactic Acid 0.6 (0.4-2.0) Calcium (8.4-10.2) mg/dL Magnesium (1.6-2.3) mg/dL Total Bilirubin (0.2-1.3) mg/dL AST (14-36) U/L ALT (0-35) U/L Alkaline Phosphatase (38-126) U/L Troponin I < 0.012 (0.000-0.033) ng/mL Serum Total Protein (6.3-8.2) g/dL Albumin (3.5-5.0) g/dL Lipase (23-300) U/L Urine Color (Yellow) Urine Appearance (Clear) Urine pH (4.6-8.0) Ur Specific [place] (1.005-1.030) Urine Protein (Negative) Urine Glucose (UA) (Negative) mg/dL Urine Ketones (Negative) Urine Blood (Negative) Urine Nitrite (Negative) Urine Bilirubin (Negative) Urine Urobilinogen (0.2) mg/dL Ur Leukocyte Esterase (Negative) U Hyaline Cast (Auto) (0-2) /LPF Urine Microscopic RBC (0-5) /HPF Urine Microscopic WBC (0-5) /HPF Ur Epithelial Cells (None Seen) /HPF Urine Bacteria (None Seen) /HPF Urine Culture Reflexed (NO) Influenza Type A Ag NEGATIVE (NEGATIVE) Influenza Type B Ag NEGATIVE (NEGATIVE) RSV (PCR) NEGATIVE (NEGATIVE) SARS-CoV-2 (PCR) NEGATIVE (NEGATIVE) 01/19/24 Range/Units 15:03 WBC (3.98-10.04) x10^3/uL RBC (3.93-5.22) x10^6/uL Hgb (11.2-15.7) g/dL Hct (34.1-44.9) % MCV (79.4-94.8) fL MCH (25.6-32.2) pg MCHC (32.2-35.5) g/dL RDW (11.7-14.4) % Plt Count (182-369) x10^3/uL MPV (9.4-12.3) fL Gran % (34.0-71.1) % Immature Gran % (Auto) (0.001-0.429) % Nucleat RBC Rel Count (0.00-0.2) % Eos # (Auto) (0.04-0.36) x10^3/uL Immature Gran # (Auto) (0.001-0.031) x10^3u/L Absolute Lymphs (auto) (1.18-3.74) x10^3/uL Absolute Monos (auto) (0.24-0.86) x10^3/uL Absolute Nucleated RBC (0.00-0.012) x10^3u/L Lymphocytes % (19.3-51.7) % Monocytes % (4.7-12.5) % Eosinophils % (0.7-5.8) % Basophils % (0.1-1.2) % Absolute Granulocytes (1.56-6.13) x10^3/uL Basophils # (0.01-0.08) x10^3/uL D-Dimer (0.0-0.50) mg/L Sodium (135-145) mmol/L Potassium (3.5-5.1) mmol/L Chloride (98-107) mmol/L Carbon Dioxide (22-30) mmol/L Anion Gap (5-15) MEQ/L BUN (7-17) mg/dL Creatinine (0.52-1.04) mg/dL Estimated GFR ML/MIN Glucose (74-106) mg/dL Lactic Acid (0.4-2.0) Calcium (8.4-10.2) mg/dL Magnesium (1.6-2.3) mg/dL Total Bilirubin (0.2-1.3) mg/dL AST (14-36) U/L ALT (0-35) U/L Alkaline Phosphatase (38-126) U/L Troponin I (0.000-0.033) ng/mL Serum Total Protein (6.3-8.2) g/dL Albumin (3.5-5.0) g/dL Lipase (23-300) U/L Urine Color Yellow (Yellow) Urine Appearance Clear (Clear) Urine pH 5.5 (4.6-8.0) Ur Specific [place] 1.010 (1.005-1.030) Urine Protein Negative (Negative) Urine Glucose (UA) Negative (Negative) mg/dL Urine Ketones Negative (Negative) Urine Blood Negative (Negative) Urine Nitrite Negative (Negative) Urine Bilirubin Negative (Negative) Urine Urobilinogen 0.2 (0.2) mg/dL Ur Leukocyte Esterase Negative (Negative) U Hyaline Cast (Auto) NONE SEEN (0-2) /LPF Urine Microscopic RBC 6-10 A (0-5) /HPF Urine Microscopic WBC NONE (0-5) /HPF Ur Epithelial Cells Rare (None Seen) /HPF Urine Bacteria None Seen (None Seen) /HPF Urine Culture Reflexed NO (NO) Influenza Type A Ag (NEGATIVE) Influenza Type B Ag (NEGATIVE) RSV (PCR) (NEGATIVE) SARS-CoV-2 (PCR) (NEGATIVE) - Radiology Impressions Radiology Exams & Impressions: Radiology Procedures Category Date Time Status ABDOMEN AND PELVIS W/0 CONTRAS [CT] Stat Exams 01/19/24 15:40 Completed CHEST 1 VIEW (PORTABLE) Stat Exams 01/19/24 14:22 Completed Assessment/Plan (1) Dehydration Current Visit: Yes Status: Acute Assessment & Plan: - IVF - tele - Anion gap 15.6 - creat 2.17, Baseline 1.0 - Co2 18 - trend labs - CMP reviewed. - 2:2 N/V - Zofran PRN Code(s): E86.0 - DEHYDRATION (2) Nausea and vomiting Current Visit: Yes Status: Acute Assessment & Plan: - Zofran PRN - CXR and CT abd pelvis negative for acute concern - Last vomited yesterday at 1300 - CBC and CMP reviwed - Flu/COVID/RSV negative Code(s): R11.2 - NAUSEA WITH VOMITING, UNSPECIFIED (3) SANA (acute kidney injury) Current Visit: Yes Status: Acute Assessment & Plan: - creat 2.17, Baseline 1.0 - IVF - trend labs - CMP reviewed Code(s): N17.9 - ACUTE KIDNEY FAILURE, UNSPECIFIED (4) Metabolic acidosis Current Visit: Yes Status: Acute Assessment & Plan: - 2:2 N/V - Co2 18- trend - IVF Code(s): E87.20 - ACIDOSIS, UNSPECIFIED (5) Back pain Current Visit: Yes Status: Chronic Assessment & Plan: - lumbar and cervical XR pending - tylenol for pain PRN - CBC and CMP reviewed Code(s): M54.9 - DORSALGIA, UNSPECIFIED (6) HTN (hypertension) Current Visit: Yes Status: Chronic Assessment & Plan: - BP stable - vitals reviewed - Continue home meds Code(s): I10 - ESSENTIAL (PRIMARY) HYPERTENSION (7) COPD (chronic obstructive pulmonary disease) Current Visit: Yes Status: Chronic Assessment & Plan: - CXR reviewed - not in acute exacerbation - continue home meds (8) GERD (gastroesophageal reflux disease) Current Visit: Yes Status: Chronic Assessment & Plan: - continue omeprazole Code(s): K21.9 - GASTRO-ESOPHAGEAL REFLUX DISEASE WITHOUT ESOPHAGITIS (9) A-fib Current Visit: Yes Status: Chronic Assessment & Plan: - Continue eliquis - tele Code(s): I48.91 - UNSPECIFIED ATRIAL FIBRILLATION (10) Anxiety Current Visit: Yes Status: Chronic Assessment & Plan: - pt reports a hx - not on current meds - consider hydroxyzine. VTE: Eliquis/Plavix PPI: omeprazole NExt of KIN: D/C plan: tomorrow Code status: Full Code(s): F41.9 - ANXIETY DISORDER, UNSPECIFIED Telemedicine Encounter - Telemedicine Encounter Telemedicine Encounter: "The entirety of this encounter was performed via Telemedicine" This visit was performed using real-time audio and video connection between my location and thepatients locationwith the assistance of a surrogateat the patients location. Written or verbal consent was obtained from the patient/guardian to perform this [facility]. Any patient questions regarding the telemedicine interaction were answered.
[2024-01-19] MEDS ORDERED: VENTOLIN COMMON CANISTER IH SCH (19:00)
[2024-01-19] MEDS: Tums EX 750 MG PO PRN (19:46)
[2024-01-19] MEDS: Zofran 4 MG/2 ML VIAL IV PRN (20:24)
[2024-01-19] MEDS: Apresoline 25 MG TABLET PO SCH (21:07)
[2024-01-19] MEDS: ELIQUIS 2.5 MG TABLET PO SCH (21:07)
[2024-01-19] MEDS: ISOPTIN SR PO SCH (21:07)
[2024-01-19] MEDS: COREG 12.5 MG PO SCH (21:07)
[2024-01-20] MEDS: TYLENOL 325 MG PO PRN (01:44)
[2024-01-20 04:31] LABS: Hematocrit 25.4 % (34.1-44.9); Hemoglobin 8.1 g/dL (11.2-15.7); Mean Cell Volume 94.1 fL (79.4-94.8); Mean Corpuscular Hgb Concent. 31.9 g/dL (32.2-35.5); Mean Platelet Volume 10.5 fL (9.4-12.3); Platelet Count 190 x10^3/uL (182-369); Red Cell Distribution Width 14.1 % (11.7-14.4); White Blood Count 9.5 x10^3/uL (3.98-10.04)
[2024-01-20 05:03] LABS: ALBUMIN 3.2 g/dL (3.5-5.0); ANION GAP 15.2 MEQ/L (5-15); BILIRUBIN,TOTAL 0.5 mg/dL (0.2-1.3); Calcium 8.2 mg/dL (8.4-10.2); Creatinine 1 1.82 mg/dL (0.52-1.04); EST GLOMERULAR FILTRATION RATE 29.4 ML/MIN; Potassium 3.9 mmol/L (3.5-5.1); Total Protein 5.7 g/dL (6.3-8.2)
--- NOTE | 2024-01-20 08:35 | XRAY ---
Indication: Pain. No known injury. Comparison: December 10, 2013 3 view cervical spine now demonstrates osteopenia, mild bilateral C6-T1 degenerative facet arthropathy, and minimal right carotid calcifications. No other bony, articular, or soft tissue abnormalities.
--- NOTE | 2024-01-20 08:36 | XRAY ---
Indication: Pain. No known injury. Comparison: December 06, 2022 AP/lateral thoracic spine unchanged again demonstrating osteopenia, minimal multilevel endplate spurring, mild levoscoliosis, and mild scattered aortic calcifications. No new/acute bony, articular, or soft tissue abnormalities.
--- NOTE | 2024-01-20 09:15 | PCM.NOTE ---
Date and Time: 01/20/24906 Subjective Assessment: 01/19/24 is a 73 year old female with PMHX of migraines, a-fib on plavix and eliquis, CAD, HTN, MS, Asthma, bronchitis, COPD, OA, Osteoporosis, GERD, Ulcer, and anxiety. Pt reports back pain for about 1 month at the T6 level. She denies any recent fall or injury. She states it radiates up towards her neck at times. She says it lasts about 3 to 4 hours and happens about once a day. Movement makes a little bit worse. Deep breathing does not make it worse. She has not had any chest pain or shortness of breath. She has some nausea and vomiting and has had a low-grade temperature around 100 degrees. She decided to come in today at the insistence of one of her relatives. She said that the symptoms did not get a lot worse today is just been going on for a month. She last vomited yesterday at 1pm and admits she has not been eating or drinking well since Friday when N/V started. Flu/ COVID/RSV negative. CT abd pelvis, and CXR non- concerning. She admits to feeling somewhat SOB and may be r/t anxiety. CXR shows cardiomegaly and she reports this is not new information and follows Dr. Kwan in [facility]. IVF started in ER for dehydration. Will keep overnight and likely d/c tomorrow. 01/20/24 Pt resting in bed. She reports her back pain has improved. Cervical and thoracic XR's non-concerning for acute injury. Her room is very warm and temp documented as 99 last night. Co2 17 and sodium bicarb PO started. She reports no overnight N/V/D. Creat improving at 1.82 still not at baseline. Continue IVF. She would benefit from another night stay. Will likely d/c tomorrow if labs improved. She denies CP, SOB, abd. pain, N/V/D. - Review of Systems Constitutional: No Fever, No Chills Eyes: No Symptoms Ears, Nose, & Throat: No Symptoms Respiratory: No Cough, No Short Of Breath Cardiac: No Chest Pain, No Edema, No Syncope Abdominal/Gastrointestinal: No Abdominal Pain, No Nausea, No Vomiting, No Diarrhea Genitourinary Symptoms: No Dysuria Musculoskeletal: No Back Pain, No Neck Pain Skin: No Rash Neurological: No Dizziness, No Focal Weakness, No Sensory Changes Psychological: No Symptoms Endocrine: No Symptoms Hematologic/Lymphatic: No Symptoms Immunological/Allergic: No Symptoms Objective Exam General Appearance: no apparent distress, alert Neurologic Exam: alert, oriented x 3, cooperative, normal mood/affect, nml cerebellar function, sensation nml, No motor deficits Skin Exam: normal color, warm, dry Eye Exam: PERRL, EOMI, eyes nml inspection Ears, Nose, Throat Exam: normal ENT inspection, pharynx normal, moist mucous membranes Neck Exam: normal inspection, non-tender, supple, full range of motion Respiratory Exam: normal breath sounds, lungs clear, No respiratory distress Cardiovascular Exam: regular rate/rhythm, normal heart sounds Gastrointestinal/Abdomen Exam: soft, tenderness (x4 quad), No mass Extremity Exam: normal inspection, normal range of motion Back Exam: normal inspection, normal range of motion, No CVA tenderness, No vertebral tenderness Pelvic Exam: deferred Rectal Exam: deferred Objective Data Vital Signs: Vital Signs - 24 hr Temp Pulse Resp BP BP Pulse Ox 01/20/24 07:35 75 16 95 01/20/24 07:17 98.0 F 68 16 140/68 94 L 01/20/24 03:46 98.6 F 61 16 122/60 94 L 01/19/24 23:55 99.1 F 75 16 126/57 97 01/19/24 18:57 98.7 F 73 16 147/63 95 01/19/24 18:33 74 18 97 01/19/24 17:22 72 16 96 01/19/24 16:31 98.4 F 69 16 145/99 96 01/19/24 16:13 98.4 F 69 16 145/99 96 01/19/24 16:02 71 22 174/74 97 01/19/24 16:01 97 01/19/24 16:00 72 18 174/74 98 01/19/24 15:30 67 156/72 97 01/19/24 15:20 69 97 01/19/24 15:10 72 97 01/19/24 15:03 88 24 94 L 01/19/24 14:30 76 15 167/74 98 01/19/24 14:05 99.8 F 74 22 166/94 97 01/19/24 14:03 74 26 H 97 Pain Assessment - Last Documented Pain Intensity 0 Pain Scale Used 0-10 Pain Scale Intake and Output: Intake & Output 01/17/24 01/18/24 01/19/24 01/20/24 11:59 11:59 11:59 11:59 Intake Total 1472 Balance 1472 Weight 64.9 kg Lab Results: Lab Results-Last 24 Hours 01/19/24 01/19/24 01/19/24 Range/Units 14:10 14:10 14:10 WBC 12.3 H (3.98-10.04) x10^3/uL RBC 3.14 L (3.93-5.22) x10^6/uL Hgb 9.5 L (11.2-15.7) g/dL Hct 29.7 L (34.1-44.9) % MCV 94.6 (79.4-94.8) fL MCH 30.3 (25.6-32.2) pg MCHC 32.0 L (32.2-35.5) g/dL RDW 13.8 (11.7-14.4) % Plt Count 224 (182-369) x10^3/uL MPV 10.4 (9.4-12.3) fL Gran % 82.3 H (34.0-71.1) % Immature Gran % (Auto) 0.4 (0.001-0.429) % Nucleat RBC Rel Count 0.0 (0.00-0.2) % Eos # (Auto) 0.20 (0.04-0.36) x10^3/uL Immature Gran # (Auto) 0.05 H (0.001-0.031) x10^3u/L Absolute Lymphs (auto) 1.02 L (1.18-3.74) x10^3/uL Absolute Monos (auto) 0.87 H (0.24-0.86) x10^3/uL Absolute Nucleated RBC 0.00 (0.00-0.012) x10^3u/L Lymphocytes % 8.3 L (19.3-51.7) % Monocytes % 7.1 (4.7-12.5) % Eosinophils % 1.6 (0.7-5.8) % Basophils % 0.3 (0.1-1.2) % Absolute Granulocytes 10.10 H (1.56-6.13) x10^3/uL Basophils # 0.04 (0.01-0.08) x10^3/uL D-Dimer 0.41 (0.0-0.50) mg/L Sodium 139 (135-145) mmol/L Potassium 4.7 (3.5-5.1) mmol/L Chloride 110 H (98-107) mmol/L Carbon Dioxide 18 L (22-30) mmol/L Anion Gap 15.6 H (5-15) MEQ/L BUN 32 H (7-17) mg/dL Creatinine 2.17 H (0.52-1.04) mg/dL Estimated GFR 23.8 ML/MIN Glucose 100 (74-106) mg/dL Lactic Acid (0.4-2.0) Calcium 8.5 (8.4-10.2) mg/dL Magnesium 1.8 (1.6-2.3) mg/dL Total Bilirubin 0.50 (0.2-1.3) mg/dL AST 40 H (14-36) U/L ALT 20 (0-35) U/L Alkaline Phosphatase 125 (38-126) U/L Troponin I (0.000-0.033) ng/mL NT-Pro-B Natriuret Pep (<300) pg/mL Serum Total Protein 6.0 L (6.3-8.2) g/dL Albumin 3.7 (3.5-5.0) g/dL Lipase 146 (23-300) U/L Urine Color (Yellow) Urine Appearance (Clear) Urine pH (4.6-8.0) Ur Specific [place] (1.005-1.030) Urine Protein (Negative) Urine Glucose (UA) (Negative) mg/dL Urine Ketones (Negative) Urine Blood (Negative) Urine Nitrite (Negative) Urine Bilirubin (Negative) Urine Urobilinogen (0.2) mg/dL Ur Leukocyte Esterase (Negative) U Hyaline Cast (Auto) (0-2) /LPF Urine Microscopic RBC (0-5) /HPF Urine Microscopic WBC (0-5) /HPF Ur Epithelial Cells (None Seen) /HPF Urine Bacteria (None Seen) /HPF Urine Culture Reflexed (NO) Influenza Type A Ag (NEGATIVE) Influenza Type B Ag (NEGATIVE) RSV (PCR) (NEGATIVE) SARS-CoV-2 (PCR) (NEGATIVE) 01/19/24 01/19/24 01/19/24 Range/Units 14:10 14:22 14:40 WBC (3.98-10.04) x10^3/uL RBC (3.93-5.22) x10^6/uL Hgb (11.2-15.7) g/dL Hct (34.1-44.9) % MCV (79.4-94.8) fL MCH (25.6-32.2) pg MCHC (32.2-35.5) g/dL RDW (11.7-14.4) % Plt Count (182-369) x10^3/uL MPV (9.4-12.3) fL Gran % (34.0-71.1) % Immature Gran % (Auto) (0.001-0.429) % Nucleat RBC Rel Count (0.00-0.2) % Eos # (Auto) (0.04-0.36) x10^3/uL Immature Gran # (Auto) (0.001-0.031) x10^3u/L Absolute Lymphs (auto) (1.18-3.74) x10^3/uL Absolute Monos (auto) (0.24-0.86) x10^3/uL Absolute Nucleated RBC (0.00-0.012) x10^3u/L Lymphocytes % (19.3-51.7) % Monocytes % (4.7-12.5) % Eosinophils % (0.7-5.8) % Basophils % (0.1-1.2) % Absolute Granulocytes (1.56-6.13) x10^3/uL Basophils # (0.01-0.08) x10^3/uL D-Dimer (0.0-0.50) mg/L Sodium (135-145) mmol/L Potassium (3.5-5.1) mmol/L Chloride (98-107) mmol/L Carbon Dioxide (22-30) mmol/L Anion Gap (5-15) MEQ/L BUN (7-17) mg/dL Creatinine (0.52-1.04) mg/dL Estimated GFR ML/MIN Glucose (74-106) mg/dL Lactic Acid 0.6 (0.4-2.0) Calcium (8.4-10.2) mg/dL Magnesium (1.6-2.3) mg/dL Total Bilirubin (0.2-1.3) mg/dL AST (14-36) U/L ALT (0-35) U/L Alkaline Phosphatase (38-126) U/L Troponin I < 0.012 (0.000-0.033) ng/mL NT-Pro-B Natriuret Pep (<300) pg/mL Serum Total Protein (6.3-8.2) g/dL Albumin (3.5-5.0) g/dL Lipase (23-300) U/L Urine Color (Yellow) Urine Appearance (Clear) Urine pH (4.6-8.0) Ur Specific [place] (1.005-1.030) Urine Protein (Negative) Urine Glucose (UA) (Negative) mg/dL Urine Ketones (Negative) Urine Blood (Negative) Urine Nitrite (Negative) Urine Bilirubin (Negative) Urine Urobilinogen (0.2) mg/dL Ur Leukocyte Esterase (Negative) U Hyaline Cast (Auto) (0-2) /LPF Urine Microscopic RBC (0-5) /HPF Urine Microscopic WBC (0-5) /HPF Ur Epithelial Cells (None Seen) /HPF Urine Bacteria (None Seen) /HPF Urine Culture Reflexed (NO) Influenza Type A Ag NEGATIVE (NEGATIVE) Influenza Type B Ag NEGATIVE (NEGATIVE) RSV (PCR) NEGATIVE (NEGATIVE) SARS-CoV-2 (PCR) NEGATIVE (NEGATIVE) 01/19/24 01/19/24 01/19/24 Range/Units 15:03 18:40 22:20 WBC (3.98-10.04) x10^3/uL RBC (3.93-5.22) x10^6/uL Hgb (11.2-15.7) g/dL Hct (34.1-44.9) % MCV (79.4-94.8) fL MCH (25.6-32.2) pg MCHC (32.2-35.5) g/dL RDW (11.7-14.4) % Plt Count (182-369) x10^3/uL MPV (9.4-12.3) fL Gran % (34.0-71.1) % Immature Gran % (Auto) (0.001-0.429) % Nucleat RBC Rel Count (0.00-0.2) % Eos # (Auto) (0.04-0.36) x10^3/uL Immature Gran # (Auto) (0.001-0.031) x10^3u/L Absolute Lymphs (auto) (1.18-3.74) x10^3/uL Absolute Monos (auto) (0.24-0.86) x10^3/uL Absolute Nucleated RBC (0.00-0.012) x10^3u/L Lymphocytes % (19.3-51.7) % Monocytes % (4.7-12.5) % Eosinophils % (0.7-5.8) % Basophils % (0.1-1.2) % Absolute Granulocytes (1.56-6.13) x10^3/uL Basophils # (0.01-0.08) x10^3/uL D-Dimer (0.0-0.50) mg/L Sodium (135-145) mmol/L Potassium (3.5-5.1) mmol/L Chloride (98-107) mmol/L Carbon Dioxide (22-30) mmol/L Anion Gap (5-15) MEQ/L BUN (7-17) mg/dL Creatinine (0.52-1.04) mg/dL Estimated GFR ML/MIN Glucose (74-106) mg/dL Lactic Acid (0.4-2.0) Calcium (8.4-10.2) mg/dL Magnesium (1.6-2.3) mg/dL Total Bilirubin (0.2-1.3) mg/dL AST (14-36) U/L ALT (0-35) U/L Alkaline Phosphatase (38-126) U/L Troponin I < 0.012 < 0.012 (0.000-0.033) ng/mL NT-Pro-B Natriuret Pep (<300) pg/mL Serum Total Protein (6.3-8.2) g/dL Albumin (3.5-5.0) g/dL Lipase (23-300) U/L Urine Color Yellow (Yellow) Urine Appearance Clear (Clear) Urine pH 5.5 (4.6-8.0) Ur Specific [place] 1.010 (1.005-1.030) Urine Protein Negative (Negative) Urine Glucose (UA) Negative (Negative) mg/dL Urine Ketones Negative (Negative) Urine Blood Negative (Negative) Urine Nitrite Negative (Negative) Urine Bilirubin Negative (Negative) Urine Urobilinogen 0.2 (0.2) mg/dL Ur Leukocyte Esterase Negative (Negative) U Hyaline Cast (Auto) NONE SEEN (0-2) /LPF Urine Microscopic RBC 6-10 A (0-5) /HPF Urine Microscopic WBC NONE (0-5) /HPF Ur Epithelial Cells Rare (None Seen) /HPF Urine Bacteria None Seen (None Seen) /HPF Urine Culture Reflexed NO (NO) Influenza Type A Ag (NEGATIVE) Influenza Type B Ag (NEGATIVE) RSV (PCR) (NEGATIVE) SARS-CoV-2 (PCR) (NEGATIVE) 01/20/24 01/20/24 Range/Units 04:28 04:28 WBC 9.5 (3.98-10.04) x10^3/uL RBC 2.70 L (3.93-5.22) x10^6/uL Hgb 8.1 L (11.2-15.7) g/dL Hct 25.4 L (34.1-44.9) % MCV 94.1 (79.4-94.8) fL MCH 30.0 (25.6-32.2) pg MCHC 31.9 L (32.2-35.5) g/dL RDW 14.1 (11.7-14.4) % Plt Count 190 (182-369) x10^3/uL MPV 10.5 (9.4-12.3) fL Gran % (34.0-71.1) % Immature Gran % (Auto) (0.001-0.429) % Nucleat RBC Rel Count (0.00-0.2) % Eos # (Auto) (0.04-0.36) x10^3/uL Immature Gran # (Auto) (0.001-0.031) x10^3u/L Absolute Lymphs (auto) (1.18-3.74) x10^3/uL Absolute Monos (auto) (0.24-0.86) x10^3/uL Absolute Nucleated RBC (0.00-0.012) x10^3u/L Lymphocytes % (19.3-51.7) % Monocytes % (4.7-12.5) % Eosinophils % (0.7-5.8) % Basophils % (0.1-1.2) % Absolute Granulocytes (1.56-6.13) x10^3/uL Basophils # (0.01-0.08) x10^3/uL D-Dimer (0.0-0.50) mg/L Sodium 139 (135-145) mmol/L Potassium 3.9 (3.5-5.1) mmol/L Chloride 111 H (98-107) mmol/L Carbon Dioxide 17 L (22-30) mmol/L Anion Gap 15.2 H (5-15) MEQ/L BUN 26 H (7-17) mg/dL Creatinine 1.82 H (0.52-1.04) mg/dL Estimated GFR 29.4 ML/MIN Glucose 112 H (74-106) mg/dL Lactic Acid (0.4-2.0) Calcium 8.2 L (8.4-10.2) mg/dL Magnesium (1.6-2.3) mg/dL Total Bilirubin 0.50 (0.2-1.3) mg/dL AST 40 H (14-36) U/L ALT 27 (0-35) U/L Alkaline Phosphatase 120 (38-126) U/L Troponin I (0.000-0.033) ng/mL NT-Pro-B Natriuret Pep 1450 (<300) pg/mL Serum Total Protein 5.7 L (6.3-8.2) g/dL Albumin 3.2 L (3.5-5.0) g/dL Lipase (23-300) U/L Urine Color (Yellow) Urine Appearance (Clear) Urine pH (4.6-8.0) Ur Specific [place] (1.005-1.030) Urine Protein (Negative) Urine Glucose (UA) (Negative) mg/dL Urine Ketones (Negative) Urine Blood (Negative) Urine Nitrite (Negative) Urine Bilirubin (Negative) Urine Urobilinogen (0.2) mg/dL Ur Leukocyte Esterase (Negative) U Hyaline Cast (Auto) (0-2) /LPF Urine Microscopic RBC (0-5) /HPF Urine Microscopic WBC (0-5) /HPF Ur Epithelial Cells (None Seen) /HPF Urine Bacteria (None Seen) /HPF Urine Culture Reflexed (NO) Influenza Type A Ag (NEGATIVE) Influenza Type B Ag (NEGATIVE) RSV (PCR) (NEGATIVE) SARS-CoV-2 (PCR) (NEGATIVE) Radiology Exams: Radiology Procedures Category Date Time Status ABDOMEN AND PELVIS W/0 CONTRAS [CT] Stat Exams 01/19/24 15:40 Completed CERVICAL SPINE (2 OR 3 VIEW) Routine Exams 01/19/24 17:25 Completed CHEST 1 VIEW (PORTABLE) Stat Exams 01/19/24 14:22 Completed THORACIC SPINE (AP,LAT,SWIMM) Routine Exams 01/19/24 17:25 Completed Assessment/Plan (1) Dehydration Current Visit: Yes Status: Acute Code(s): E86.0 - DEHYDRATION (2) Nausea and vomiting Current Visit: Yes Status: Acute Code(s): R11.2 - NAUSEA WITH VOMITING, UNSPECIFIED (3) SANA (acute kidney injury) Current Visit: Yes Status: Acute Code(s): N17.9 - ACUTE KIDNEY FAILURE, UNSPECIFIED (4) Metabolic acidosis Current Visit: Yes Status: Acute Code(s): E87.20 - ACIDOSIS, UNSPECIFIED (5) Back pain Current Visit: Yes Status: Chronic Code(s): M54.9 - DORSALGIA, UNSPECIFIED (6) HTN (hypertension) Current Visit: Yes Status: Chronic Code(s): I10 - ESSENTIAL (PRIMARY) HYPERTENSION (7) COPD (chronic obstructive pulmonary disease) Current Visit: Yes Status: Chronic (8) GERD (gastroesophageal reflux disease) Current Visit: Yes Status: Chronic Code(s): K21.9 - GASTRO-ESOPHAGEAL REFLUX DISEASE WITHOUT ESOPHAGITIS (9) A-fib Current Visit: Yes Status: Chronic Code(s): I48.91 - UNSPECIFIED ATRIAL FIBRILLATION (10) Anxiety Current Visit: Yes Status: Chronic Assessment & Plan: (1) Dehydration Current Visit: Yes Status: Acute Assessment & Plan: - IVF - tele - Anion gap 15.6 - creat 2.17, Baseline 1.0 - Co2 18 - trend labs - CMP reviewed. - 2:2 N/V - Zofran PRN 01/19 - CBC, CMP reviewed - Creat 1.82- improved - Continue IVF - Anion gap 15.2- improving Code(s): E86.0 - DEHYDRATION (2) Nausea and vomiting Current Visit: Yes Status: Acute Assessment & Plan: - Zofran PRN - CXR and CT abd pelvis negative for acute concern - Last vomited yesterday at 1300 - CBC and CMP reviwed - Flu/COVID/RSV negative 01/19 - no overnight N/V - improving Code(s): R11.2 - NAUSEA WITH VOMITING, UNSPECIFIED (3) SANA (acute kidney injury) Current Visit: Yes Status: Acute Assessment & Plan: - creat 2.17, Baseline 1.0 - IVF - trend labs - CMP reviewed 01/19 - Creat 1.82- improved, not at baseline yet - Continue IVF Code(s): N17.9 - ACUTE KIDNEY FAILURE, UNSPECIFIED (4) Metabolic acidosis Current Visit: Yes Status: Acute Assessment & Plan: - 2:2 N/V - Co2 18- trend - IVF 01/19 - Co2 17 - PO sodium bicarb BID added Code(s): E87.20 - ACIDOSIS, UNSPECIFIED (5) Back pain Current Visit: Yes Status: Chronic Assessment & Plan: - lumbar and cervical XR reviewed - tylenol for pain PRN - CBC and CMP reviewed Code(s): M54.9 - DORSALGIA, UNSPECIFIED (6) HTN (hypertension) Current Visit: Yes Status: Chronic Assessment & Plan: - BP stable - vitals reviewed - Continue home meds Code(s): I10 - ESSENTIAL (PRIMARY) HYPERTENSION (7) COPD (chronic obstructive pulmonary disease) Current Visit: Yes Status: Chronic Assessment & Plan: - CXR reviewed - not in acute exacerbation - continue home meds - Room air 95% (8) GERD (gastroesophageal reflux disease) Current Visit: Yes Status: Chronic Assessment & Plan: - continue omeprazole Code(s): K21.9 - GASTRO-ESOPHAGEAL REFLUX DISEASE WITHOUT ESOPHAGITIS (9) A-fib Current Visit: Yes Status: Chronic Assessment & Plan: - Continue eliquis - tele Code(s): I48.91 - UNSPECIFIED ATRIAL FIBRILLATION (10) Anxiety Current Visit: Yes Status: Chronic Assessment & Plan: - pt reports a hx - not on current meds - hydroxyzine BID PRN VTE: Eliquis/Plavix PPI: Omeprazole Next of KIN: D/C plan: Tomorrow Code status: Full Code(s): F41.9 - ANXIETY DISORDER, UNSPECIFIED Code(s): F41.9 - ANXIETY DISORDER, UNSPECIFIED
[2024-01-20] MEDS: Imdur 30 MG PO SCH (09:24)
[2024-01-20] MEDS: SODIUM BICARBONATE PO SCH (09:24)
[2024-01-20] MEDS: Cozaar 50 MG PO SCH (09:25)
[2024-01-20] MEDS: Lanoxin 0.125MG TABLET PO SCH (09:25)
[2024-01-20] MEDS: Zocor 10MG PO SCH (09:26)
[2024-01-20] MEDS: Protonix 40MG Tablet PO SCH (09:26)
[2024-01-20] MEDS: ATARAX 25 MG PO SCH (09:26)
[2024-01-20] MEDS: PLAVIX Tablet PO SCH (09:27)
[2024-01-20] MEDS ORDERED: ZOCOR 20MG PO SCH (10:00)
[2024-01-21 05:43] LABS: Hematocrit 24.9 % (34.1-44.9); Hemoglobin 7.9 g/dL (11.2-15.7); Mean Corpuscular Hemoglobin 29.8 pg (25.6-32.2); Mean Corpuscular Hgb Concent. 31.7 g/dL (32.2-35.5); Mean Platelet Volume 10.9 fL (9.4-12.3); Platelet Count 180 x10^3/uL (182-369); Red Blood Count 2.65 x10^6/uL (3.93-5.22); Red Cell Distribution Width 14.3 % (11.7-14.4); White Blood Count 7.9 x10^3/uL (3.98-10.04)
[2024-01-21 06:30] LABS: ALBUMIN 3.1 g/dL (3.5-5.0); ANION GAP 13.7 MEQ/L (5-15); BILIRUBIN,TOTAL 0.3 mg/dL (0.2-1.3); Calcium 8.2 mg/dL (8.4-10.2); Creatinine 1 1.34 mg/dL (0.52-1.04); EST GLOMERULAR FILTRATION RATE 42.4 ML/MIN; Potassium 3.9 mmol/L (3.5-5.1); Total Protein 5.7 g/dL (6.3-8.2)
[2024-01-21 07:52] VITALS: BP 160/65; TEMP 99
[2024-01-21 08:10] VITALS: RESP 18; O2SAT 94
[2024-01-21 09:08] VITALS: PULSE 76
--- NOTE | 2024-01-21 10:05 | PCM.DS ---
Discharge Summary Date of Admission: 01/19/24 16:09 Date of Discharge: 01/21/24 Admitting Physician: DAVID JARAMILLO MD Primary Care Provider: JOSE SOLO Allergies Allergies No Known Drug Allergies Allergy (Verified 01/19/24 14:06) Hospital Summary - Hospital Course Hospital Course: 01/19/24 is a 73 year old female with PMHX of migraines, a-fib on plavix and eliquis, CAD, HTN, [place], Asthma, bronchitis, COPD, OA, Osteoporosis, GERD, Ulcer, and anxiety. Pt reports back pain for about 1 month at the T6 level. She denies any recent fall or injury. She states it radiates up towards her neck at times. She says it lasts about 3 to 4 hours and happens about once a day. Movement makes a little bit worse. Deep breathing does not make it worse. She has not had any chest pain or shortness of breath. She has some nausea and vomiting and has had a low-grade temperature around 100 degrees. She decided to come in today at the insistence of one of her relatives. She said that the symptoms did not get a lot worse today is just been going on for a month. She last vomited yesterday at 1pm and admits she has not been eating or drinking well since Friday when N/V started. Flu/ COVID/RSV negative. CT abd pelvis, and CXR non-concerning. She admits to feeling somewhat SOB and may be r/t anxiety. CXR shows cardiomegaly and she reports this is not new information and follows Dr. Kwan in [facility]. IVF started in ER for dehydration. Will keep overnight and likely d/c tomorrow. 01/20/24 Pt resting in bed. She reports her back pain has improved. Cervical and thoracic XR's non-concerning for acute injury. Her room is very warm and temp documented as 99 last night. Co2 17 and sodium bicarb PO started. She reports no overnight N/V/D. Creat improving at 1.82 still not at baseline. Continue IVF. She would benefit from another night stay. Will likely d/c tomorrow if labs improved. She denies CP, SOB, abd. pain, N/V/D. 01/21/24 Pt resting in bed. She said she feels fine today and would like to go home. She has been up and walking w/o concern per staff and pt. She has had no N/V, denies pain. Bicarb improved at 19 will d/c with a few more days of medication. She will need to f/u OP for repeat labs with PCP. SANA improving again will also need kidney function rechecked OP. She denies any further concerns at this time. - Vitals & Intake/Output Vital Signs: Vital Signs Temperature 99.0 F 01/21/24 07:52 Pulse Rate 76 01/21/24 09:05 Respiratory Rate 18 01/21/24 08:08 Blood Pressure 160/65 01/21/24 07:52 O2 Sat by Pulse Oximetry 94 L 01/21/24 08:08 Intake & Output: Intake & Output 01/18/24 01/19/24 01/20/24 01/21/24 11:59 11:59 11:59 11:59 Intake Total 1951 3611 Balance 1951 3611 Weight 64.9 kg - Lab Result Diagrams: 01/21/24 05:27 01/21/24 05:27 Lab Results-Last 24 Hrs: Lab Results-Last 24 Hours 01/21/24 01/21/24 Range/Units 05:27 05:27 WBC 7.9 (3.98-10.04) x10^3/uL RBC 2.65 L (3.93-5.22) x10^6/uL Hgb 7.9 L (11.2-15.7) g/dL Hct 24.9 L (34.1-44.9) % MCV 94.0 (79.4-94.8) fL MCH 29.8 (25.6-32.2) pg MCHC 31.7 L (32.2-35.5) g/dL RDW 14.3 (11.7-14.4) % Plt Count 180 L (182-369) x10^3/uL MPV 10.9 (9.4-12.3) fL Sodium 141 (135-145) mmol/L Potassium 3.9 (3.5-5.1) mmol/L Chloride 113 H (98-107) mmol/L Carbon Dioxide 19 L (22-30) mmol/L Anion Gap 13.7 (5-15) MEQ/L BUN 18 H (7-17) mg/dL Creatinine 1.34 H (0.52-1.04) mg/dL Estimated GFR 42.4 ML/MIN Glucose 101 (74-106) mg/dL Calcium 8.2 L (8.4-10.2) mg/dL Total Bilirubin 0.30 (0.2-1.3) mg/dL AST 55 H (14-36) U/L ALT 40 H (0-35) U/L Alkaline Phosphatase 143 H (38-126) U/L Serum Total Protein 5.7 L (6.3-8.2) g/dL Albumin 3.1 L (3.5-5.0) g/dL Micro Results-Entire Visit: Microbiology 01/19/24 14:34 Blood Culture - Preliminary Blood 01/19/24 14:10 Blood Culture - Preliminary Blood - Radiology Exams Ordered Rad Exams-Entire Visit: Radiology Procedures Category Date Time Status ABDOMEN AND PELVIS W/0 CONTRAS [CT] Stat Exams 01/19/24 15:40 Completed CERVICAL SPINE (2 OR 3 VIEW) Routine Exams 01/19/24 17:25 Completed CHEST 1 VIEW (PORTABLE) Stat Exams 01/19/24 14:22 Completed THORACIC SPINE (AP,LAT,SWIMM) Routine Exams 01/19/24 17:25 Completed - Procedures and Test Procedures and Tests throughout Hospitalization: Therapy Orders & Screens 01/19/24 16:57 RT Screen per Nursing Assess ONCE Comment: Protocol Order Physician Instructions: Greater than 3 points order RT Admission Screen Reason For Exam: Triggered on Admission Diagnosis: dehydration Diagnosis: dehydration Pneumonia: No Home O2: No Asthma: Yes CHF: No Home CPAP/BIPAP: No Home Nebs/MDI: Yes Total Points: 9 ST Screen per Nursing Assess ONCE Comment: Protocol Order Physician Instructions: Greater than [address] Admission Screening Reason For Exam: Triggered on Admission Diagnosis: dehydration CVA/Dyshpagia/Aphasia: No Cognitive Deficits: No Dehydration/Nutrition Deficit: Yes Reflux: No Oral-Motor Difficulties: No Pneumonia: No Alf Resident: No Total Points: 5 01/19/24 17:22 Respiratory Therapy Assessment DAILY Comment: Diagnosis: dehydration 01/20/24 07:27 PT Eval & Treat (MD Order) ONCE Reason for Eval:: back pain- home needs Diagnosis: dehydration Discharge Exam General Appearance: no apparent distress, alert Neurologic Exam: alert, oriented x 3, cooperative, normal mood/affect, nml cerebellar function, sensation nml, No motor deficits Eye Exam: PERRL, EOMI, eyes nml inspection Ears, Nose, Throat Exam: normal ENT inspection, pharynx normal, moist mucous membranes Neck Exam: normal inspection, non-tender, supple, full range of motion Respiratory Exam: normal breath sounds, lungs clear, No respiratory distress Cardiovascular Exam: regular rate/rhythm, normal heart sounds Gastrointestinal/Abdomen Exam: soft, No tenderness, No mass Pelvic Exam: deferred Rectal Exam: deferred Back Exam: normal inspection, normal range of motion, No CVA tenderness, No vertebral tenderness Extremity Exam: normal inspection, normal range of motion Skin Exam: normal color, warm, dry Final Diagnosis/Problem List - Final Discharge Diagnosis/Problem (1) Dehydration Current Visit: Yes Status: Acute Code(s): E86.0 - DEHYDRATION (2) Nausea and vomiting Current Visit: Yes Status: Acute Code(s): R11.2 - NAUSEA WITH VOMITING, UNSPECIFIED (3) SANA (acute kidney injury) Current Visit: Yes Status: Acute Code(s): N17.9 - ACUTE KIDNEY FAILURE, UNSPECIFIED (4) Metabolic acidosis Current Visit: Yes Status: Acute Code(s): E87.20 - ACIDOSIS, UNSPECIFIED (5) Back pain Current Visit: Yes Status: Chronic Code(s): M54.9 - DORSALGIA, UNSPECIFIED (6) HTN (hypertension) Current Visit: Yes Status: Chronic Code(s): I10 - ESSENTIAL (PRIMARY) HYPERTENSION (7) COPD (chronic obstructive pulmonary disease) Current Visit: Yes Status: Chronic (8) GERD (gastroesophageal reflux disease) Current Visit: Yes Status: Chronic Code(s): K21.9 - GASTRO-ESOPHAGEAL REFLUX DISEASE WITHOUT ESOPHAGITIS (9) A-fib Current Visit: Yes Status: Chronic Code(s): I48.91 - UNSPECIFIED ATRIAL FIBRILLATION (10) Anxiety Current Visit: Yes Status: Chronic Assessment & Plan: (1) Dehydration Current Visit: Yes Status: Acute Assessment & Plan: - IVF - tele - Anion gap 15.6 - creat 2.17, Baseline 1.0 - Co2 18 - trend labs - CMP reviewed. - 2:2 N/V - Zofran PRN 01/19 - CBC, CMP reviewed - Creat 1.82- improved - Continue IVF - Anion gap 15.2- improving 01/20 - CBC, CMP reviewed - Creat 1.34- improving - encourage oral hydration Code(s): E86.0 - DEHYDRATION (2) Nausea and vomiting Current Visit: Yes Status: Acute Assessment & Plan: - Zofran PRN - CXR and CT abd pelvis negative for acute concern - Last vomited yesterday at 1300 - CBC and CMP reviwed - Flu/COVID/RSV negative 01/19 - no overnight N/V - improving 01/20 - resolved Code(s): R11.2 - NAUSEA WITH VOMITING, UNSPECIFIED (3) SANA (acute kidney injury) Current Visit: Yes Status: Acute Assessment & Plan: - creat 2.17, Baseline 1.0 - IVF - trend labs - CMP reviewed 01/19 - Creat 1.82- improved, not at baseline yet - Continue IVF Code(s): N17.9 - ACUTE KIDNEY FAILURE, UNSPECIFIED (4) Metabolic acidosis Current Visit: Yes Status: Acute Assessment & Plan: - 2:2 N/V - Co2 18- trend - IVF 01/19 - Co2 17 - PO sodium bicarb BID added 01/20 - Co2 19 - will d/c with PO replacement for a few days- will need repeat labs OP Code(s): E87.20 - ACIDOSIS, UNSPECIFIED (5) Back pain Current Visit: Yes Status: Chronic Assessment & Plan: - lumbar and cervical XR reviewed - tylenol for pain PRN - CBC and CMP reviewed 01/20 - resolved Code(s): M54.9 - DORSALGIA, UNSPECIFIED (6) HTN (hypertension) Current Visit: Yes Status: Chronic Assessment & Plan: - BP stable - vitals reviewed - Continue home meds Code(s): I10 - ESSENTIAL (PRIMARY) HYPERTENSION (7) COPD (chronic obstructive pulmonary disease) Current Visit: Yes Status: Chronic Assessment & Plan: - CXR reviewed - not in acute exacerbation - continue home meds - Room air 95% (8) GERD (gastroesophageal reflux disease) Current Visit: Yes Status: Chronic Assessment & Plan: - continue omeprazole Code(s): K21.9 - GASTRO-ESOPHAGEAL REFLUX DISEASE WITHOUT ESOPHAGITIS (9) A-fib Current Visit: Yes Status: Chronic Assessment & Plan: - Continue eliquis - tele Code(s): I48.91 - UNSPECIFIED ATRIAL FIBRILLATION (10) Anxiety Current Visit: Yes Status: Chronic Assessment & Plan: - pt reports a hx - not on current meds - hydroxyzine BID PRN Code(s): F41.9 - ANXIETY DISORDER, UNSPECIFIED - Discharge Discharge Date: 01/21/24 Disposition: Home, Self-Care Condition: Good Prescriptions: New Sodium Bicarbonate 650 mg PO BID 2 Days #4 tablet Continue Omeprazole 40 mg PO DAILY Albuterol Sulfate [Proair Hfa] 8.5 gm IH BID Isosorbide Mononitrate 30 mg [Imdur 30 MG] 30 mg PO DAILY Digoxin 0.125 mg Tablet [Lanoxin 0.125MG TABLET] 0.125 mg PO DAILY Hydralazine HCl 1.5 tab PO BID Clopidogrel Bisulfate [Plavix] 75 mg PO DAILY Verapamil HCl [Verapamil ER] 120 mg PO HS Carvedilol 12.5 mg [Coreg 12.5 mg] 12.5 mg PO BID Atorvastatin Calcium 40 mg PO DAILY Apixaban [Eliquis] 5 mg PO BID Losartan Potassium 100 mg PO DAILY Alendronate Sodium 70 mg [Fosamax 70 MG] 70 mg PO Q7D@0600 Albuterol 2.5 mg/3 ml Neb [Proventil 2.5 mg/3 ml Neb] 2.5 mg IH Q6H PRN PRN 8 Days #30 PRN Reason: Shortness Of Breath/Wheezing Instructions: Dehydration, Adult ED Follow up with: JOSE SOLO [Primary Care Provider] - 01/29/24 10:00 am Forms: Discharge Instructions
[2024-01-26] MEDS ORDERED: Fosamax 70 MG PO PRN (06:00)
== END 2024-01-21 11:07 | disposition home or self-care (01) ==
LOC: ED 14:02 → MED SURG 16:09
PROVIDERS: ADMIT Internal Medicine; ATTEND Internal Medicine
DX: E86.0 Dehydration (principal); R11.2 Nausea with vomiting, unspecified; N17.9 Acute kidney failure, unspecified; E87.20 Acidosis, unspecified; M54.9 Dorsalgia, unspecified; I10 Essential (primary) hypertension; J44.9 Chronic obstructive pulmonary disease, unspecified; K21.9 Gastro-esophageal reflux disease without esophagitis; I48.91 Unspecified atrial fibrillation; F41.9 Anxiety disorder, unspecified; I25.2 Old myocardial infarction; Z79.899 Other long term (current) drug therapy; Z79.01 Long term (current) use of anticoagulants
CPT/HCPCS: 0241U; 36000; 36415; 71045; 72040; 72072; 74176; 80053; 81001; 83605; 83690; 83735; 83880; 84484; 85025; 85027; 85379; 87040; 93005; 93041; 93268; 94760; 97161; 99284; G0378; J2405; A9270-GY

== ENCOUNTER 2024-05-10 08:46 | Emergency (ER) | payer MEDICARE ==
[2024-05-10 08:57] VITALS: TEMP 97.9
[2024-05-10] MEDS ORDERED: MORPHINE SULFATE 4 MG INJ ONE ×3 (09:11→13:48)
[2024-05-10] MEDS ORDERED: Zofran 4 MG/2 ML VIAL ONE (09:11)
--- NOTE | 2024-05-10 09:17 | ERPHSYRPT ---
- History of Present Illness Time Seen by Provider: 05/10/24 09:00 Source: patient Exam Limitations: clinical condition Patient Subjective Stated Complaint: Chest pain that started around 0200 today. States pain was initially intermittent but is now more constant. Radiates into left shoulder and back. Triage Nursing Assessment: Patient ambulated into the ER but had to be placed in a W/C to be brought back to a room. She is alert and oriented. Denies SOB but labored breaths are noted. NO cough. Skin tone normal. FRIEDMAN WNL. S/S of pain are present; grimacing, restless. NO edema. Timing/Duration: today Severity: mild Allergies/Adverse Reactions: No Known Drug Allergies Allergy (Verified 05/10/24 08:48) Home Medications: Albuterol Sulfate [Proair Hfa] 8.5 gm IH BID 10/18/15 [History] Alendronate Sodium 70 mg [Fosamax 70 MG] 70 mg PO Q7D@0600 06/24/23 [History] Apixaban [Eliquis] 5 mg PO BID 06/24/23 [History] Atorvastatin Calcium 40 mg PO DAILY 06/24/23 [History] Carvedilol 12.5 mg [Coreg 12.5 mg] 12.5 mg PO BID 06/24/23 [History] Clopidogrel Bisulfate [Plavix] 75 mg PO DAILY 06/24/23 [History] Hydralazine HCl See Rx Instructions .ROUTE .COMPLEX 06/24/23 [History] Isosorbide Mononitrate 30 mg [Imdur 30 MG] 30 mg PO DAILY 06/24/23 [History] Losartan Potassium 100 mg PO DAILY 06/24/23 [History] Verapamil HCl [Verapamil ER] 120 mg PO HS 06/24/23 [History] Hx Tetanus, Diphtheria Vaccination/Date Given: Yes Hx Influenza Vaccination/Date Given: Yes Hx Pneumococcal Vaccination/Date Given: No Immunizations Up to Date: Yes Travel Risk - International Travel Have you traveled outside of the country in past 3 weeks: No - Emerging Infectious Disease Are you exhibiting symptoms associated with any current EIDs: Yes Symptoms: Diarrhea - Review of Systems Constitutional: No Symptoms Eyes: No Symptoms Ears, Nose, & Throat: No Symptoms Respiratory: No Symptoms Cardiac: Chest Pain Abdominal/Gastrointestinal: No Symptoms Genitourinary Symptoms: No Symptoms Musculoskeletal: No Symptoms - Past Medical History Pertinent Past Medical History: Yes Neurological History: Migraines ENT History: No Pertinent History Cardiac History: Arrhythmia, Coronary Artery Disease, Hypertension, Myocardial Infarction ([place]) Respiratory History: Asthma, Bronchitis, COPD Endocrine Medical History: No Pertinent History Musculoskeletal History: Arthritis, Osteoarthritis, Osteoporosis GI Medical History: GERD, Ulcer History: No Pertinent History Psycho-Social History: Anxiety Female Reproductive Disorders: No Pertinent History 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 Izquierdo ([facility]) - Past Surgical History Past Surgical History: Yes Neuro Surgical History: No Pertinent History Cardiac: Cardiac Catheterization, Cardiac Stent Respiratory: No Pertinent History Gastrointestinal: Appendectomy Genitourinary: No Pertinent History Musculoskeletal: Orthopedic Surgery Female Surgical History: Hysterectomy, Tubal Ligation Other Surgical History: teddy knee replacement x2 Significant Family History: no pertinent family hx - Social History Smoking Status: Never smoker Exposure to second hand smoke: No Drug Use: none Patient Lives Alone: No - Social Determinants of Health Will the patient participate in the screening: Yes Do you worry about a steady place to live?: No Do you have any problems with any of the following?: No known problems In the past 12 months,have you had to go without utilities?: No Transportation Issues: No Has anyone in your support network made you feel unsafe?: No Have you or anyone in your house had to go without enough: No - Nursing Vital Signs Nursing Vital Signs: Initial Vital Signs Temperature 97.9 F 05/10/24 08:49 Pulse Rate 50 L 05/10/24 08:49 Respiratory Rate 19 05/10/24 08:49 Blood Pressure 157/74 05/10/24 08:49 O2 Sat by Pulse Oximetry 100 05/10/24 08:49 Pain Scale Pain Intensity 3 - Physical Exam General Appearance: no apparent distress Eye Exam: PERRL/EOMI Ears, Nose, Throat Exam: normal ENT inspection Neck Exam: normal inspection Respiratory Exam: normal breath sounds, chest tenderness (pat has reproducible chest pain with palpation to the left chest wall ) Cardiovascular Exam: regular rate/rhythm Gastrointestinal/Abdomen Exam: soft, normal bowel sounds SpO2: 99 Ordered Tests: Active Orders 24 hr Category Date Time Status CHEST 1 VIEW (PORTABLE) Stat Exams 05/10/24 09:14 Completed CHEST WITHOUT CONTRAST [CT] Stat Exams 05/10/24 10:33 Completed AMYLASE Stat Lab 02/10/25 09:15 Completed CBC W DIFF Stat Lab 05/10/24 09:28 Completed CK-Creatinine Phosphokinase Stat Lab 05/10/24 09:15 Completed CMP Stat Lab 05/10/24 09:15 Completed D-DIMER QUANTITATIVE Stat Lab 05/10/24 09:41 Completed LIPASE Stat Lab 05/10/24 09:15 Completed MAGNESIUM Stat Lab 05/10/24 09:15 Completed TROPONIN Q4H Lab 05/10/24 09:15 Completed TROPONIN Q4H Lab 05/10/24 12:24 Completed TROPONIN Q4H Lab 05/10/24 17:15 Ordered UA W/RFX UR CULTURE Stat Lab 05/10/24 11:54 Completed Medication Summary Discontinued Medications Generic Name Dose Route Start Last Admin Trade Name Freq PRN Reason Stop Dose Admin Sodium Chloride 1,000 mls @ 999 mls/hr 05/10/24 09:13 05/10/24 11:06 Sodium Chloride 0.9% 1000 Ml IV 05/10/24 10:13 Infused .Q1H1M STA Infusion Sodium Chloride Confirm 05/10/24 10:03 Sodium Chloride 0.9% 1000 Ml Administered 05/10/24 10:04 Dose 1,000 mls @ ud .ROUTE .STK-MED ONE Morphine Sulfate 4 mg 05/10/24 09:09 05/10/24 09:19 Morphine Sulfate 4 Mg/Ml Injection IV 05/10/24 09:10 4 mg STAT ONE Administration Morphine Sulfate Confirm 05/10/24 09:11 Morphine Sulfate 4 Mg/Ml Injection Administered 05/10/24 09:12 Dose 4 mg .ROUTE .STK-MED ONE Morphine Sulfate 4 mg 05/10/24 09:55 05/10/24 10:04 Morphine Sulfate 4 Mg/Ml Injection IV 05/10/24 09:56 4 mg STAT ONE Administration Morphine Sulfate Confirm 05/10/24 10:03 Morphine Sulfate 4 Mg/Ml Injection Administered 05/10/24 10:04 Dose 4 mg .ROUTE .STK-MED ONE Ondansetron HCl Confirm 05/10/24 09:11 Ondansetron Hcl 4 Mg/2 Ml Vial Administered 05/10/24 09:12 Dose 4 mg .ROUTE .STK-MED ONE Ondansetron HCl 4 mg 05/10/24 09:19 05/10/24 09:20 Ondansetron Hcl 4 Mg/2 Ml Vial IV 05/10/24 09:20 4 mg STAT ONE Administration Lab/Rad Data: Laboratory Result Diagrams 05/10/24 09:28 05/10/24 09:15 Laboratory Results 05/10/24 05/10/24 05/10/24 Range/Units 12:24 11:54 09:41 WBC (3.98-10.04) x10^3/uL RBC (3.93-5.22) x10^6/uL Hgb (11.2-15.7) g/dL Hct (34.1-44.9) % MCV (79.4-94.8) fL MCH (25.6-32.2) pg MCHC (32.2-35.5) g/dL RDW (11.7-14.4) % Plt Count (182-369) x10^3/uL MPV (9.4-12.3) fL Gran % (34.0-71.1) % Immature Gran % (Auto) (0.001-0.429) % Nucleat RBC Rel Count (0.00-0.2) % Eos # (Auto) (0.04-0.36) x10^3/uL Immature Gran # (Auto) (0.001-0.031) x10^3u/L Absolute Lymphs (auto) (1.18-3.74) x10^3/uL Absolute Monos (auto) (0.24-0.86) x10^3/uL Absolute Nucleated RBC (0.00-0.012) x10^3u/L Lymphocytes % (19.3-51.7) % Monocytes % (4.7-12.5) % Eosinophils % (0.7-5.8) % Basophils % (0.1-1.2) % Absolute Granulocytes (1.56-6.13) x10^3/uL Basophils # (0.01-0.08) x10^3/uL D-Dimer 0.44 (0.0-0.50) mg/L Sodium (135-145) mmol/L Potassium (3.5-5.1) mmol/L Chloride (98-107) mmol/L Carbon Dioxide (22-30) mmol/L Anion Gap (5-15) MEQ/L BUN (7-17) mg/dL Creatinine (0.52-1.04) mg/dL Estimated GFR ML/MIN Glucose (74-106) mg/dL Calcium (8.4-10.2) mg/dL Magnesium (1.6-2.3) mg/dL Total Bilirubin (0.2-1.3) mg/dL AST (14-36) U/L ALT (0-35) U/L Alkaline Phosphatase (38-126) U/L Creatine Kinase (30-135) U/L Troponin I < 0.012 (0.000-0.033) ng/mL Serum Total Protein (6.3-8.2) g/dL Albumin (3.5-5.0) g/dL Amylase (30-110) U/L Lipase (23-300) U/L Urine Color Yellow (Yellow) Urine Appearance Clear (Clear) Urine pH 5.5 (4.6-8.0) Ur Specific [place] 1.015 (1.005-1.030) Urine Protein Negative (Negative) Urine Glucose (UA) Negative (Negative) mg/dL Urine Ketones Negative (Negative) Urine Blood Negative (Negative) Urine Nitrite Negative (Negative) Urine Bilirubin Negative (Negative) Urine Urobilinogen 0.2 (0.2) mg/dL Ur Leukocyte Esterase Negative (Negative) U Hyaline Cast (Auto) 3-5 A (0-2) /LPF Urine Microscopic RBC 0-2 (0-5) /HPF Urine Microscopic WBC 0-2 (0-5) /HPF Ur Epithelial Cells None Seen (None Seen) /HPF Urine Bacteria None Seen (None Seen) /HPF Urine Culture Reflexed NO (NO) 05/10/24 05/10/24 05/10/24 Range/Units 09:28 09:15 09:15 WBC 9.4 (3.98-10.04) x10^3/uL RBC 3.35 L (3.93-5.22) x10^6/uL Hgb 9.9 L (11.2-15.7) g/dL Hct 31.1 L (34.1-44.9) % MCV 92.8 (79.4-94.8) fL MCH 29.6 (25.6-32.2) pg MCHC 31.8 L (32.2-35.5) g/dL RDW 13.5 (11.7-14.4) % Plt Count 249 (182-369) x10^3/uL MPV 10.1 (9.4-12.3) fL Gran % 78.6 H (34.0-71.1) % Immature Gran % (Auto) 0.3 (0.001-0.429) % Nucleat RBC Rel Count 0.0 (0.00-0.2) % Eos # (Auto) 0.38 H (0.04-0.36) x10^3/uL Immature Gran # (Auto) 0.03 (0.001-0.031) x10^3u/L Absolute Lymphs (auto) 0.95 L (1.18-3.74) x10^3/uL Absolute Monos (auto) 0.60 (0.24-0.86) x10^3/uL Absolute Nucleated RBC 0.00 (0.00-0.012) x10^3u/L Lymphocytes % 10.1 L (19.3-51.7) % Monocytes % 6.4 (4.7-12.5) % Eosinophils % 4.0 (0.7-5.8) % Basophils % 0.6 (0.1-1.2) % Absolute Granulocytes 7.38 H (1.56-6.13) x10^3/uL Basophils # 0.06 (0.01-0.08) x10^3/uL D-Dimer (0.0-0.50) mg/L Sodium 137 (135-145) mmol/L Potassium 4.5 (3.5-5.1) mmol/L Chloride 107 (98-107) mmol/L Carbon Dioxide 17 L (22-30) mmol/L Anion Gap 17.8 H (5-15) MEQ/L BUN 27 H (7-17) mg/dL Creatinine 1.57 H (0.52-1.04) mg/dL Estimated GFR 35.1 ML/MIN Glucose 102 (74-106) mg/dL Calcium 8.8 (8.4-10.2) mg/dL Magnesium 2.3 (1.6-2.3) mg/dL Total Bilirubin 0.60 (0.2-1.3) mg/dL AST 32 (14-36) U/L ALT 19 (0-35) U/L Alkaline Phosphatase 110 (38-126) U/L Creatine Kinase 84 (30-135) U/L Troponin I < 0.012 (0.000-0.033) ng/mL Serum Total Protein 7.1 (6.3-8.2) g/dL Albumin 4.5 (3.5-5.0) g/dL Amylase 69 (30-110) U/L Lipase 196 (23-300) U/L Urine Color (Yellow) Urine Appearance (Clear) Urine pH (4.6-8.0) Ur Specific [place] (1.005-1.030) Urine Protein (Negative) Urine Glucose (UA) (Negative) mg/dL Urine Ketones (Negative) Urine Blood (Negative) Urine Nitrite (Negative) Urine Bilirubin (Negative) Urine Urobilinogen (0.2) mg/dL Ur Leukocyte Esterase (Negative) U Hyaline Cast (Auto) (0-2) /LPF Urine Microscopic RBC (0-5) /HPF Urine Microscopic WBC (0-5) /HPF Ur Epithelial Cells (None Seen) /HPF Urine Bacteria (None Seen) /HPF Urine Culture Reflexed (NO) - Progress Progress Note: Impression: Chronic findings including cardiomegaly, atelectasis/scarring, hiatal hernia, arteriosclerotic disease, chronic bony findings, and old granulomatous disease. No acute findings on this noncontrast exam. 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 patient and family updated with the plan and are agreeable to the transfer 05/10/24 12:39 05/10/24 13:31 Medical Desision Making - Discussion of managment Care discussed with:: hospitalist Agreed on:: decision to admit - Departure Departure Disposition: Transfer Clinical Impression: Chest pain, Shortness of breath, ACS (acute coronary syndrome), Coronary arteriosclerosis, Angina at rest Condition: Stable Critical Care Time: No Referrals: JOSE SOLO [Primary Care Provider] - Follow up/PCP as directed
[2024-05-10] MEDS: MORPHINE SULFATE 4 MG INJ IV ONE ×3 (09:19→13:48)
[2024-05-10] MEDS: Zofran 4 MG/2 ML VIAL IV ONE (09:20)
[2024-05-10 09:28] LABS: Absolute Neutrophil Ct (ANC) 7.38 x10^3/uL (1.56-6.13); BASOPHIL % 0.6 % (0.1-1.2); Basophil (Absolute #) 0.06 x10^3/uL (0.01-0.08); Eosinophil (Absolute #) 0.38 x10^3/uL (0.04-0.36); Hematocrit 31.1 % (34.1-44.9); Hemoglobin 9.9 g/dL (11.2-15.7); IMMATURE GRAN # 0.03 x10^3u/L (0.001-0.031); IMMATURE GRAN % 0.3 % (0.001-0.429); Lymphocyte (Absolute #) 0.95 x10^3/uL (1.18-3.74); Lymphocytes % 10.1 % (19.3-51.7); Mean Cell Volume 92.8 fL (79.4-94.8); Mean Corpuscular Hemoglobin 29.6 pg (25.6-32.2); Mean Corpuscular Hgb Concent. 31.8 g/dL (32.2-35.5); Mean Platelet Volume 10.1 fL (9.4-12.3); Monocytes % 6.4 % (4.7-12.5); Neutrophil % 78.6 % (34.0-71.1); Platelet Count 249 x10^3/uL (182-369); Red Blood Count 3.35 x10^6/uL (3.93-5.22); Red Cell Distribution Width 13.5 % (11.7-14.4); White Blood Count 9.4 x10^3/uL (3.98-10.04)
[2024-05-10 09:36] LABS: ALBUMIN 4.5 g/dL (3.5-5.0); ANION GAP 17.8 MEQ/L (5-15); BILIRUBIN,TOTAL 0.6 mg/dL (0.2-1.3); Calcium 8.8 mg/dL (8.4-10.2); Creatinine 1 1.57 mg/dL (0.52-1.04); EST GLOMERULAR FILTRATION RATE 35.1 ML/MIN; MAGNESIUM 2.3 mg/dL (1.6-2.3); Potassium 4.5 mmol/L (3.5-5.1); Total Protein 7.1 g/dL (6.3-8.2)
[2024-05-10] MEDS ORDERED: Sodium Chloride 0.9% 1000 ML 1,000 ML ONE (10:03)
[2024-05-10] MEDS: Sodium Chloride 0.9% 1000 ML 1,000 ML IV STA (10:04)
--- NOTE | 2024-05-10 10:10 | XRAY ---
Indication: Chest pain. Comparison: January 19, 2024 Portable chest again rotated and remains clear. Heart not enlarged. Bony thorax intact again with osteopenia and degenerative changes. No new/acute findings.
[2024-05-10 12:08] LABS: Appearance Clear (Clear); Bacteria None Seen /HPF (None Seen); Bilirubin Negative (Negative); Blood Negative (Negative); Epithelial Cells None Seen /HPF (None Seen); Glucose, Urine Negative (Negative); Ketones Negative (Negative); Leukocyte Esterase Negative (Negative); Nitrite Negative (Negative); Ph 5.5 (4.6-8.0); Protein,Urine Dip Negative (Negative); RBC 0-2 /HPF (0-5); Specific Gravity 1.015 (1.005-1.030); Urobilinogen 0.2 mg/dL (0.2); WBC 0-2 /HPF (0-5)
--- NOTE | 2024-05-10 12:10 | XRAY ---
Indication: Chest pain. Multiple contiguous axial images obtained through the chest without contrast Comparison: None Lungs demonstrates mild bibasilar subsegmental atelectasis/scarring and tiny lingula calcified granuloma. No suspicious pulmonary mass/nodule, infiltrate, effusion, or pneumothorax. Heart enlarged with scattered coronary calcifications. Aorta mildly arteriosclerotic without aneurysm. Small subcarinal and left hilar calcified nodes. No pathologic mediastinal lymphadenopathy. Moderate-sized hiatal hernia with partial intrathoracic stomach. Bony thorax intact with osteopenia and minimal degenerative changes throughout the spine. Limited upper abdomen including adrenal glands unremarkable. Impression: Chronic findings including cardiomegaly, atelectasis/scarring, hiatal hernia, arteriosclerotic disease, chronic bony findings, and old granulomatous disease. No acute findings on this noncontrast exam.
[2024-05-10 13:55] VITALS: BP 185/74; PULSE 64; RESP 20; O2SAT 98
== END 2024-05-10 14:14 | disposition short-term general hospital (02) ==
LOC: ED 08:46
DX: I24.9 Acute ischemic heart disease, unspecified (principal); R07.9 Chest pain, unspecified; R06.02 Shortness of breath; I25.119 Atherosclerotic heart disease of native coronary artery with unspecified angina pectoris; I10 Essential (primary) hypertension; Z79.01 Long term (current) use of anticoagulants; Z79.02 Long term (current) use of antithrombotics/antiplatelets; Z79.899 Other long term (current) drug therapy
CPT/HCPCS: 36415; 71045; 71250; 80053; 81001; 82150; 82550; 83690; 83735; 84484; 85025; 85379; 96374; 96375; 96376; 99285; J2270; J2405

== ENCOUNTER 2025-01-05 23:57 | Observation (INO) | payer MEDICARE ==
[2025-01-06 00:21] LABS: BASOPHIL % 0.7 % (0.1-1.2); Basophil (Absolute #) 0.07 x10^3/uL (0.01-0.08); Eosinophil (Absolute #) 0.34 x10^3/uL (0.04-0.36); Hematocrit 38.7 % (34.1-44.9); Hemoglobin 12.4 g/dL (11.2-15.7); IMMATURE GRAN # 0.06 x10^3u/L (0.001-0.031); IMMATURE GRAN % 0.6 % (0.001-0.429); Lymphocyte (Absolute #) 1.17 x10^3/uL (1.18-3.74); Mean Corpuscular Hemoglobin 30.9 pg (25.6-32.2); Mean Corpuscular Hgb Concent. 32.0 g/dL (32.2-35.5); Monocyte (Absolute #) 0.72 x10^3/uL (0.24-0.86); NUCLEATED RBC # 0.00 x10^3u/L (0.00-0.012); NUCLEATED RBC % 0.0 % (0.00-0.2); Platelet Count 221 x10^3/uL (182-369); Red Blood Count 4.01 x10^6/uL (3.93-5.22); White Blood Count 9.4 x10^3/uL (3.98-10.04)
[2025-01-06 00:29] LABS: Glucose, Urine Negative (Negative); Protein,Urine Dip Negative (Negative); RBC 0-2 /HPF (0-5); WBC >100 /HPF (0-5)
[2025-01-06 00:43] LABS: Calcium 9.0 mg/dL (8.4-10.2); Carbon Dioxide 23.0 mmol/L (22-30); Creatinine 1 0.89 mg/dL (0.52-1.04); EST GLOMERULAR FILTRATION RATE 68.8 ML/MIN; Glucose 106.0 mg/dL (74-106); NT PRO BNPII 2650.0 pg/mL (<300); Potassium 3.7 mmol/L (3.5-5.1); SGOT/AST 30.0 U/L (14-36); SGPT/ALT 20.0 U/L (0-35); Total Protein 6.2 g/dL (6.3-8.2)
--- NOTE | 2025-01-06 00:56 | ERPHSYRPT ---
- History of Present Illness Time Seen by Provider: 01/06/25 00:50 Historian: patient Exam Limitations: no limitations Patient Subjective Stated Complaint: patient states shes been having chest pain and right shoulder and kneck pain since 7 pm, Triage Nursing Assessment: patient walked in to the ED she was having chest pain at home took nitro around 7 it releived for short time then it started again, states she nauseated with pain in right shoulder and kneck. says she is off her bnlood thinners at this time she is supposed to get a watchman put into place. pt is alert and orientedx3, ambulates by self, lung sounds clear, pulses equal bilateral radius, no edema noted, skin warm dry and intact. Physician History: Patient is a 74-year-old female history of migraine A-fib not on anticoagulation, history of hypertension coronary artery disease [place] asthma COPD arthritis GERD presents to our ED for evaluation of chest pain rating to her right shoulder and her neck. Symptoms started at approximately 7 PM and have been ongoing since. Patient took a dose of nitro glycerin sublingual that relieved her pain temporarily however pain reoccurred. Patient then experienced nausea associated with the chest pain. No vomiting. Patient symptoms are moderate in intensity. No specific worsening or proving factors. Patient otherwise feels well she voices no other complaints or concerns at this time. Portions of this note were created with voice recognition technology. There may be grammatical, spelling, punctuation or sound alike errors Timing/Duration: today Activities at Onset: none Quality: aching Location: substernal Chest Pain Radiation: jaw, arm Severity of Pain-Max: moderate Severity of Pain-Current: mild Modifying Factors: Improves With: nothing Associated Symptoms: nausea Nitro Today/Relief: 0.4 mg x 1 Aspirin Treatment Today: no aspirin today Allergies/Adverse Reactions: mushroom Allergy (Unknown, Verified 01/06/25 00:32) food allergy Home Medications: Albuterol Sulfate [Proair Hfa] 8.5 gm IH BID 10/18/15 [History] Alendronate Sodium 70 mg [Fosamax 70 MG] 70 mg PO Q7D@0600 06/24/23 [History] Atorvastatin Calcium 40 mg PO DAILY 06/24/23 [History] Clopidogrel Bisulfate [Plavix] 75 mg PO DAILY 06/24/23 [History] Isosorbide Mononitrate 30 mg [Imdur 30 MG] 30 mg PO DAILY 06/24/23 [History] Losartan Potassium 100 mg PO DAILY 06/24/23 [History] Aspirin 81 gm Chew [Baby Aspirin 81 mg Chew] 1 tab PO DAILY 08/18/24 [History] PANTOPRAZOLE 40 mg Tablet [Protonix 40MG Tablet] 40 mg PO DAILY 08/18/24 [History] Hx Tetanus, Diphtheria Vaccination/Date Given: Yes Hx Influenza Vaccination/Date Given: Yes Hx Pneumococcal Vaccination/Date Given: Yes Immunizations Up to Date: Yes Travel Risk - International Travel Have you traveled outside of the country in past 3 weeks: No - Emerging Infectious Disease Are you exhibiting symptoms associated with any current EIDs: No Symptoms: Diarrhea - Review of Systems All Other Systems: Reviewed and Negative - Past Medical History Pertinent Past Medical History: Yes Neurological History: Migraines ENT History: No Pertinent History Cardiac History: Arrhythmia, Coronary Artery Disease, Hypertension, Myocardial Infarction ([place]) Respiratory History: Asthma, Bronchitis, COPD Endocrine Medical History: No Pertinent History Musculoskeletal History: Arthritis, Osteoarthritis, Osteoporosis GI Medical History: GERD, Ulcer History: No Pertinent History Psycho-Social History: Anxiety Female Reproductive Disorders: No Pertinent History 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 ([facility]) - Past Surgical History Past Surgical History: Yes Neuro Surgical History: No Pertinent History Cardiac: Cardiac Catheterization, Cardiac Stent Respiratory: No Pertinent History Gastrointestinal: Appendectomy Genitourinary: No Pertinent History Musculoskeletal: Orthopedic Surgery Female Surgical History: Hysterectomy, Tubal Ligation Other Surgical History: teddy knee replacement x2 Significant Family History: no pertinent family hx - Social History Smoking Status: Never smoker Exposure to second hand smoke: No Drug Use: none - Social Determinants of Health Will the patient participate in the screening: Yes Do you worry about a steady place to live?: No Do you have any problems with any of the following?: No known problems In the past 12 months,have you had to go without utilities?: No Transportation Issues: No Has anyone in your support network made you feel unsafe?: No Have you or anyone in your house had to go w/o enough food: No - Nursing Vital Signs Nursing Vital Signs: Initial Vital Signs Temperature 98.1 F 01/05/25 23:57 Pulse Rate 77 01/05/25 23:57 Respiratory Rate 14 01/05/25 23:57 O2 Sat by Pulse Oximetry 96 01/05/25 23:57 Pain Scale Pain Intensity 4 - Physical Exam General Appearance: no apparent distress, alert Eye Exam: PERRL/EOMI, eyes nml inspection Ears, Nose, Throat Exam: normal ENT inspection, moist mucous membranes Neck Exam: normal inspection, full range of motion Respiratory Exam: normal breath sounds, lungs clear, airway intact, No respiratory distress Cardiovascular Exam: regular rate/rhythm, normal heart sounds Gastrointestinal/Abdomen Exam: soft, No tenderness, No mass Back Exam: normal inspection, No CVA tenderness, No vertebral tenderness Extremity Exam: normal inspection, normal range of motion Neurologic Exam: alert, oriented x 3, cooperative, normal mood/affect, sensation nml, No motor deficits Skin Exam: normal color, warm, dry Lymphatic Exam: adenopathy SpO2 Interpretation: normal SpO2: 96 O2 Delivery: Room Air - Course Nursing assessment & vital signs reviewed: Yes EKG Interpreted by Me: RATE (75), A-fib, NORMAL AXIS, NORMAL INTERVALS, NORMAL QRS (EG suggestive of ischemia anterolaterally) - Radiology Exams Chest X-ray Interpretation: Interpreted by me (Cardiomegaly. No acute findings.) - CT Exams Head CT Interpretation: Tele-radiologist Report (No evidence of acute intracranial abnormality is demonstrated. Chronic microvascular ischemic changes cerebral atrophy old lacunar infarcts left basal ganglia) Ordered Tests: Active Orders 24 hr Category Date Time Status Communication Instructor STAT Care 01/06/25 00:04 Active EKG-ER Only STAT Care 01/06/25 00:02 Active IV Insertion STAT Care 01/06/25 00:02 Active Pulse Oximetry (ED) STAT Care 01/06/25 00:02 Active CHEST 1 VIEW (PORTABLE) Stat Exams 01/06/25 00:[address] ANGIOGRAPHY NECK [CT] Stat Exams 01/06/25 04:44 Ordered CTA HEAD W AND/OR WO CONTRAST [CT] Stat Exams 01/06/25 04:44 Ordered HEAD WITHOUT CONTRAST [CT] Stat Exams 01/06/25 03:33 Taken CBC W DIFF Stat Lab 01/06/25 00:03 Completed CMP Stat Lab 01/06/25 00:03 Completed CULTURE,URINE Stat Lab 01/06/25 00:03 Received NT PRO BNPII Stat Lab 01/06/25 00:03 Completed TROPONIN Q4H Lab 01/06/25 00:03 Completed TROPONIN Q4H Lab 01/06/25 02:39 Completed TROPONIN Q4H Lab 01/06/25 08:15 Ordered UA W/RFX UR CULTURE Stat Lab 01/06/25 00:03 Completed Transfer Order Routine Transfer 01/06/25 Ordered Medication Summary Generic Name Dose Route Start Last Admin Trade Name Freq PRN Reason Stop Dose Admin Nitroglycerin 1 gm 01/06/25 06:00 01/06/25 01:27 Nitroglycerin 1 Gm Packet TOP 02/05/25 05:59 1 gm Q8HT HOLGER Administration Discontinued Medications Generic Name Dose Route Start Last Admin Trade Name Freq PRN Reason Stop Dose Admin Apixaban 10 mg 01/06/25 04:54 Apixaban 2.5 Mg Tablet PO 01/06/25 04:55 ONCE STA Aspirin 324 mg 01/06/25 01:02 01/06/25 01:27 Aspirin 81 Mg Tab.Chew PO 01/06/25 01:03 324 mg STAT ONE Administration Aspirin Confirm 01/06/25 01:26 Aspirin 81 Mg Tab.Chew Administered 01/06/25 01:27 Dose 324 mg .ROUTE .STK-MED ONE Ceftriaxone Sodium 1 gm in 100 mls @ 200 mls/hr 01/06/25 04:17 Rocephin 1 Gm / 100 Ml Nacl IV 01/06/25 04:46 STAT ONE Lab/Rad Data: Laboratory Result Diagrams 01/06/25 00:03 01/06/25 00:03 Laboratory Results 01/06/25 01/06/25 01/06/25 Range/Units 02:39 00:03 00:03 WBC (3.98-10.04) x10^3/uL RBC (3.93-5.22) x10^6/uL Hgb (11.2-15.7) g/dL Hct (34.1-44.9) % MCV (79.4-94.8) fL MCH (25.6-32.2) pg MCHC (32.2-35.5) g/dL RDW (11.7-14.4) % Plt Count (182-369) x10^3/uL MPV (9.4-12.3) fL Gran % (34.0-71.1) % Immature Gran % (Auto) (0.001-0.429) % Nucleat RBC Rel Count (0.00-0.2) % Eos # (Auto) (0.04-0.36) x10^3/uL Immature Gran # (Auto) (0.001-0.031) x10^3u/L Absolute Lymphs (auto) (1.18-3.74) x10^3/uL Absolute Monos (auto) (0.24-0.86) x10^3/uL Absolute Nucleated RBC (0.00-0.012) x10^3u/L Lymphocytes % (19.3-51.7) % Monocytes % (4.7-12.5) % Eosinophils % (0.7-5.8) % Basophils % (0.1-1.2) % Absolute Granulocytes (1.56-6.13) x10^3/uL Basophils # (0.01-0.08) x10^3/uL Sodium (135-145) mmol/L Potassium (3.5-5.1) mmol/L Chloride (98-107) mmol/L Carbon Dioxide (22-30) mmol/L Anion Gap (5-15) MEQ/L BUN (7-17) mg/dL Creatinine (0.52-1.04) mg/dL Estimated GFR ML/MIN Glucose (74-106) mg/dL Calcium (8.4-10.2) mg/dL Total Bilirubin (0.2-1.3) mg/dL AST (14-36) U/L ALT (0-35) U/L Alkaline Phosphatase (38-126) U/L Troponin I < 0.012 < 0.012 (0.000-0.033) ng/mL NT-Pro-B Natriuret Pep (<300) pg/mL Serum Total Protein (6.3-8.2) g/dL Albumin (3.5-5.0) g/dL Urine Color Yellow (Yellow) Urine Appearance Cloudy A (Clear) Urine pH 6.0 (4.6-8.0) Ur Specific [place] 1.015 (1.005-1.030) Urine Protein Negative (Negative) Urine Glucose (UA) Negative (Negative) mg/dL Urine Ketones Negative (Negative) Urine Blood Negative (Negative) Urine Nitrite Positive A (Negative) Urine Bilirubin Negative (Negative) Urine Urobilinogen 0.2 (0.2) mg/dL Ur Leukocyte Esterase Large A (Negative) U Hyaline Cast (Auto) NONE SEEN (0-2) /LPF Urine Microscopic RBC 0-2 (0-5) /HPF Urine Microscopic WBC >100 A (0-5) /HPF Ur Epithelial Cells None Seen (None Seen) /HPF Urine Bacteria Many A (None Seen) /HPF Urine Culture Reflexed YES (NO) Digoxin (0.8-1.9) ng/mL 01/06/25 01/06/25 01/06/25 Range/Units 00:03 00:03 00:03 WBC 9.4 (3.98-10.04) x10^3/uL RBC 4.01 (3.93-5.22) x10^6/uL Hgb 12.4 (11.2-15.7) g/dL Hct 38.7 (34.1-44.9) % MCV 96.5 H (79.4-94.8) fL MCH 30.9 (25.6-32.2) pg MCHC 32.0 L (32.2-35.5) g/dL RDW 15.2 H (11.7-14.4) % Plt Count 221 (182-369) x10^3/uL MPV 10.1 (9.4-12.3) fL Gran % 74.9 H (34.0-71.1) % Immature Gran % (Auto) 0.6 H (0.001-0.429) % Nucleat RBC Rel Count 0.0 (0.00-0.2) % Eos # (Auto) 0.34 (0.04-0.36) x10^3/uL Immature Gran # (Auto) 0.06 H (0.001-0.031) x10^3u/L Absolute Lymphs (auto) 1.17 L (1.18-3.74) x10^3/uL Absolute Monos (auto) 0.72 (0.24-0.86) x10^3/uL Absolute Nucleated RBC 0.00 (0.00-0.012) x10^3u/L Lymphocytes % 12.5 L (19.3-51.7) % Monocytes % 7.7 (4.7-12.5) % Eosinophils % 3.6 (0.7-5.8) % Basophils % 0.7 (0.1-1.2) % Absolute Granulocytes 7.03 H (1.56-6.13) x10^3/uL Basophils # 0.07 (0.01-0.08) x10^3/uL Sodium 138 (135-145) mmol/L Potassium 3.7 (3.5-5.1) mmol/L Chloride 108 H (98-107) mmol/L Carbon Dioxide 23 (22-30) mmol/L Anion Gap 11.7 (5-15) MEQ/L BUN 14 (7-17) mg/dL Creatinine 0.89 (0.52-1.04) mg/dL Estimated GFR 68.8 ML/MIN Glucose 106 (74-106) mg/dL Calcium 9.0 (8.4-10.2) mg/dL Total Bilirubin 0.20 (0.2-1.3) mg/dL AST 30 (14-36) U/L ALT 20 (0-35) U/L Alkaline Phosphatase 91 (38-126) U/L Troponin I (0.000-0.033) ng/mL NT-Pro-B Natriuret Pep 2650 (<300) pg/mL Serum Total Protein 6.2 L (6.3-8.2) g/dL Albumin 4.0 (3.5-5.0) g/dL Urine Color (Yellow) Urine Appearance (Clear) Urine pH (4.6-8.0) Ur Specific [place] (1.005-1.030) Urine Protein (Negative) Urine Glucose (UA) (Negative) mg/dL Urine Ketones (Negative) Urine Blood (Negative) Urine Nitrite (Negative) Urine Bilirubin (Negative) Urine Urobilinogen (0.2) mg/dL Ur Leukocyte Esterase (Negative) U Hyaline Cast (Auto) (0-2) /LPF Urine Microscopic RBC (0-5) /HPF Urine Microscopic WBC (0-5) /HPF Ur Epithelial Cells (None Seen) /HPF Urine Bacteria (None Seen) /HPF Urine Culture Reflexed (NO) Digoxin 0.7 L (0.8-1.9) ng/mL - Progress Progress: improved Air Movement: good Progress Note: Patient is a 74-year-old female history of migraine A-fib not on anticoagulation, history of hypertension coronary artery disease [place] asthma COPD arthritis GERD presents to our ED for evaluation of chest pain rating to her right shoulder and her neck. Physical exam presenting unremarkable. Laboratory workup essentially nonremarkable. Urinalysis reveals urinary tract infection. IV Rocephin ordered. While in our ED patient complained of instability of her left leg and tingling of her left hand. NIH score negative. CT head without contrast negative for acute pathology. 01/06/25 04:[address] Bueno 4:40 AM. she advised CTA head and neck. Also advised loading with 10 mg of Eliquis and then 5 mg Eliquis twice daily. She advised hospitalization for MRI and echo. Of note patient was previously on Eliquis but it was discontinued in preparation for the Watchman procedure. Patient has not had nor is scheduled for Watchman procedure. Laboratory workup negative. Patient received aspirin and nitroglycerin paste in our ED. CTA results pending. Case discussed with Dr. Jolley who accepts admission to observation. He agrees to follow-up on CTA head and neck on the floor. Plan of care discussed with patient. She agrees to admission at [facility] for further evaluation and treatment. History obtained from patient. Differential diagnoses include chest pain, ACS, aortic dissection, Dr. Hill independently reviewed and interpreted chest x-ray. Cardiomegaly observed otherwise no acute findings observed. Portions of this note were created with voice recognition technology. There may be grammatical, spelling, punctuation or sound alike errors Complexity of problems addressed is moderate acute complicated. No critical care time. Complexity of data reviewed and analyzed is extensive. Test ordered chest reviewed results analyzed and correlated clinically with history and physical exam. Management discussed with Dr. Hamilton and neurologist. Risk of complication and or risk of morbidity/mortality of patient management is high. Patient requires hospitalization for further evaluation and treatment. Vital stable. Time spent to admit patient is approximately 15 minutes. Plan of care established for shared decision making. No social determinants of health present to impede follow-up. Portions of this note were created with voice recognition technology. There may be grammatical, spelling, punctuation or sound alike errors 01/06/25 04:22 Patient accepted by hospitalist Dr. Jolley at 6:14am 10/09/25 06:21 Blood Culture(s) Obtained: No Antibiotics given: No Discussed with Dr.: Deras Counseled pt/family regarding: lab results, diagnosis, rad results - Departure Departure Disposition: Observation Clinical Impression: Chest pain, ACS (acute coronary syndrome), UTI (urinary tract infection), TIA (transient ischemic attack) Condition: Stable Critical Care Time: No Referrals: JOSE SOLO [Primary Care Provider, [facility]] - Follow up/PCP as directed
[2025-01-06] MEDS ORDERED: BABY ASPIRIN 81 MG CHEW ONE (01:26)
[2025-01-06] MEDS ORDERED: NITRO-BID 2% UD PACKETS ONE (01:26)
[2025-01-06] MEDS: NITRO-BID 2% UD PACKETS TOP SCH (01:27)
[2025-01-06] MEDS: BABY ASPIRIN 81 MG CHEW PO ONE (01:27)
[2025-01-06] MEDS ORDERED: ROCEPHIN 1 GM / 100 ML NaCl 1 GM/100 ML IVPB IV ONE (07:03)
[2025-01-06] MEDS ORDERED: ELIQUIS 2.5 MG TABLET ONE (07:03)
[2025-01-06] MEDS: ELIQUIS 2.5 MG TABLET PO STA (07:07)
--- NOTE | 2025-01-06 07:07 | XRAY ---
CLINICAL HISTORY: numbness COMPARISON: None. TECHNIQUE: Contrast-enhanced thin-slice CT angiography scan of the cerebral vessels was performed without and with intravenous contrast. Angiographic images were processed, and 3D MIP images were acquired for interpretation. Contiguous axial images were obtained. Reformatted coronal and sagittal images were also reviewed. If IV contrast material had not been administered, the likelihood of detecting abnormalities relevant to the patient's condition would have been substantially decreased. The CT scan was performed according to ALARA (as low as reasonably achievable). FINDINGS: Bilateral internal carotid arteries show normal course, calibre, and opacification in the canalicular and cavernous parts. Their division into the anterior cerebral artery and middle cerebral artery is defined. Right A1, bilateral A2, and M1, M2 segments are normal on both sides. A1 segment of left anterior cerebral artery is hypoplastic. Bilateral vertebral arteries are seen to unite to form the basilar artery in a normal fashion. Left vertebral artery is dominant. The basilar artery shows normal course, caliber, and opacification. Its division into the posterior cerebral arteries is defined. Bilateral P1 and P2 segments are normal. Visualized venous structures show normal opacification. No evidence of intracranial aneurysm or AV malformation is seen. IMPRESSION: 1. No evidence of hemodynamically significant stenosis or aneurysm. No evidence of dissection. Electronically Signed by: Zain Bates MD. (01/06/2025 07:05:38 EDT)
[2025-01-06] MEDS: ROCEPHIN 1 GM / 100 ML NaCl 1 GM/100 ML IVPB IV ONE (07:08)
[2025-01-06] MEDS ORDERED: PROVENTIL 2.5 MG/3 ML NEB IH PRN (07:33)
--- NOTE | 2025-01-06 07:39 | PCM.HP ---
History of Present Illness - Chief Complaint Chief Complaint: Acute coronary syndrome Date: 01/06/25 History of Present Illness: is a 74-year-old female with a medical history of migraine, atrial fibrillation (not currently on anticoagulation), hypertension, coronary artery disease with prior myocardial infarction, asthma, COPD, arthritis, and GERD presented to the Emergency Department with complaints of chest pain radiating to her right shoulder and neck. Her physical examination was unremarkable, and initial laboratory workup, including cardiac enzymes, was essentially within normal limits. However, urinalysis was consistent with a urinary tract i nfection, and the patient was treated with IV Rocephin. While in the ED, the patient began experiencing instability in her left leg and tingling in her left hand. A stroke evaluation was initiated. Her NIH Stroke Scale score was zero, and a CT head without contrast was negative for any acute pathology. Neurology was consulted, and at approximately 4:40 AM, Dr. Bueno recommended obtaining a CTA of the head and neck, initiating anticoagulation with a 10 mg loading dose of Eliquis followed by 5 mg twice daily, and proceeding with hospital admission for further evaluation. Although an echocardi ogram was initially recommended by neurology, cardiology advised that a repeat echo was not necessary at this time, as the patient had a recent echocardiogram on file. Notably, the patient was previously on Eliquis, which had been discontinued in preparation for a planned Watchman device placement. However, the patient never underwent the procedure and is not currently scheduled for it. According to the patient, she missed the appointments due to her granddaughter being too busy to accompany her. However, per the granddaughter, the patient has refused to proceed with the procedure. While awaiting CTA results, the patient developed rhythm pauses on cardiac monitoring. She was transferred to the ICU for closer observation, and Cardiology was consulted emergently. After discussion with Cardiology, her medications were adjusted to include valsartan and amlodipine. The chyron operator advised that rhythm pauses are not concerning unless they exceed 3 seconds, in which case nursing staff were instructed to notify the cardiology team immediately. The patient also reported that she had run out of her Coreg (carvedilol) three days prior to presentation. Additionally, the patient had a gastrointestinal bleed in May, which led to the discontinuation of anticoagulation at that time. Neurology now recommends resuming blood thinners due to her current neurological symptoms and stroke risk, but final management will be determined by cardiology. Further neurological imaging is limited, as the patient is unable to undergo MRI due to bilateral knee replacements and multiple vascular stents that are MRI- incompatible. - Review of Systems Constitutional: No Fever, No Chills Eyes: No Symptoms Ears, Nose, & Throat: No Symptoms Respiratory: No Cough, No Short Of Breath Cardiac: Chest Pain, No Edema, No Syncope Abdominal/Gastrointestinal: No Abdominal Pain, No Nausea, No Vomiting, No Diarrhea Genitourinary Symptoms: No Dysuria Musculoskeletal: No Back Pain, No Neck Pain Skin: No Rash Neurological: Tics, Other (left hand tingling, left arm and leg weakness), No Dizziness, No Focal Weakness, No Sensory Changes Psychological: No Symptoms, Anxiety Endocrine: No Symptoms Hematologic/Lymphatic: No Symptoms Immunological/Allergic: No Symptoms Medications & Allergies Home Medications: Home Medication List Albuterol Sulfate [Proair Hfa] 8.5 gm IH BID 10/18/15 [History Confirmed 12/23] Alendronate Sodium 70 mg [Fosamax 70 MG] 70 mg PO Q7D@0600 06/24/23 [History Confirmed 01/06/25] Atorvastatin Calcium 20 mg PO DAILY 06/24/23 [History Confirmed 01/06/25] Clopidogrel Bisulfate [Plavix] 75 mg PO DAILY 06/24/23 [History Confirmed 01/06/25] Isosorbide Mononitrate 30 mg [Imdur 30 MG] 30 mg PO DAILY 06/24/23 [History Confirmed 01/06/25] Losartan Potassium 50 mg PO DAILY 06/24/23 [History Confirmed 01/06/25] Albuterol 2.5 mg/3 ml Neb [Proventil 2.5 mg/3 ml Neb] 2.5 mg IH Q6H PRN PRN 8 Days #30 06/25/23 [Rx Confirmed 01/06/25] Aspirin 81 gm Chew [Baby Aspirin 81 mg Chew] 1 tab PO DAILY 08/18/24 [History Confirmed 01/06/25] PANTOPRAZOLE 40 mg Tablet [Protonix 40MG Tablet] 40 mg PO DAILY 08/18/24 [History Confirmed 01/06/25] Carvedilol 12.5 mg [Coreg 12.5 mg] 25 mg PO BID 30 Days #30 tablet 08/23/24 [Rx Confirmed 01/06/25] Digoxin 0.125 mg Tablet [Lanoxin 0.125MG TABLET] 0.125 mg PO DAILY 30 Days #30 tablet 08/23/24 [Rx Confirmed 01/06/25] Doxycycline Hyclate 100 mg [Vibramycin 100 MG] 100 mg PO BID 10 Days #5 tab 08/23/24 [Rx Confirmed 01/06/25] Ferrous Sulfate 325 mg [Feosol 325 mg] 325 mg PO DAILY 30 Days #30 tablet 08/23/24 [Rx Confirmed 01/06/25] Hydrocodone/Acetaminophen [Hydrocodone-Acetamin 5-325 mg] 1 tab PO Q6HPRN PRN 3 Days #12 tablet MDD 4 09/01/24 [Rx Confirmed 01/06/25] Hydralazine HCl 75 mg PO BID 01/06/25 [History Confirmed 01/06/25] Nitroglycerin 0.4 mg Tablet [Nitrostat 0.4 MG Tablet] 0.4 mg SL Q5MIN PRN MR X 3 PRN 01/06/25 [History Confirmed 01/06/25] Allergies/Adverse Reactions: Allergies Allergy/AdvReac Type Severity Reaction Status Date / Time shrimp Allergy Severe Tightness Verified 01/06/25 06:29 of Throat mushroom Allergy Unknown Verified 01/06/25 00:32 - Past Medical History Past Medical History: Yes Neurological History: Migraines ENT History: No Pertinent History Cardiac History: Arrhythmia, Coronary Artery Disease, Hypertension, Myocardial Infarction ([place]) Respiratory History: Asthma, Bronchitis, COPD Endocrine Medical History: No Pertinent History Musculoskelatal History: Arthritis, Osteoarthritis, Osteoporosis GI Medical History: GERD, Ulcer History: No Pertinent History Pyscho-Social History: Anxiety Reproductive Disorders: No Pertinent History Comment: Ui Application Developer: Dr. Izquierdo ([facility]) - Past Surgical History Past Surgical History: Yes Neuro Surgical History: No Pertinent History Cardiac History: Cardiac Catheterization, Cardiac Stent Respiratory Surgery: No Pertinent History GI Surgical History: Appendectomy Genitourinary Surgical Hx: No Pertinent History Musculskeletal Surgical Hx: Orthopedic Surgery Female Surgical History: Hysterectomy, Tubal Ligation Other Surgical History: teddy knee replacement x2 Significant Family History: no pertinent family hx - Social History Smoking Status: Never smoker Exposure to second hand smoke: No Alcohol: None Drug Use: none - Social Determinants of Health Will the patient participate in the screening: Yes Do you worry about a steady place to live?: No Do you have any problems with any of the following?: No known problems In the past 12 months,have you had to go without utilities?: No Have you or anyone in your house had to go without enough: No Transportation Issues: No Has anyone in your support network made you feel unsafe?: No Does the patient want assistance with any of the above?: No - Physical Exam Vital Signs: Vital Signs - 24 hr Temp Pulse Pulse Resp BP BP Pulse Ox 01/06/25 06:33 96 01/06/25 06:24 58 L 01/06/25 04:00 58 L 20 197/98 98 01/06/25 03:31 74 18 197/98 98 01/06/25 03:00 64 16 188/95 97 01/06/25 00:39 72 22 188/95 96 01/06/25 00:04 98.1 F 114 H 14 188/95 98 01/06/25 00:02 98 01/05/25 23:57 98.1 F 77 80 14 96 General Appearance: no apparent distress, alert Neurologic Exam: alert, oriented x 3, cooperative, normal mood/affect, nml cerebellar function, nml station & gait, sensation nml, motor weakness, abnormal skin carver II-XII (Left arm and leg weakness), No motor deficits Eye Exam: PERRL/EOMI, eyes nml inspection Ears, Nose, Throat Exam: normal ENT inspection, TMs normal, pharynx normal, moist mucous membranes Neck Exam: normal inspection, non-tender, supple, full range of motion Respiratory Exam: normal breath sounds, lungs clear, No respiratory distress Cardiovascular Exam: normal heart sounds, normal peripheral pulses, irregular, other (with pauses < 3 sec) Gastrointestinal/Abdomen Exam: soft, normal bowel sounds, No tenderness, No mass Back Exam: normal inspection, normal range of motion, No CVA tenderness, No vertebral tenderness Extremity Exam: normal inspection, normal range of motion, pelvis stable Skin Exam: normal color, warm, dry, No rash Lymphatic Exam: No adenopathy Results - Labs Lab/Micro Results: Lab Results-Last 24 Hours 01/06/25 01/06/25 01/06/25 Range/Units 00:03 00:03 00:03 WBC 9.4 (3.98-10.04) x10^3/uL RBC 4.01 (3.93-5.22) x10^6/uL Hgb 12.4 (11.2-15.7) g/dL Hct 38.7 (34.1-44.9) % MCV 96.5 H (79.4-94.8) fL MCH 30.9 (25.6-32.2) pg MCHC 32.0 L (32.2-35.5) g/dL RDW 15.2 H (11.7-14.4) % Plt Count 221 (182-369) x10^3/uL MPV 10.1 (9.4-12.3) fL Gran % 74.9 H (34.0-71.1) % Immature Gran % (Auto) 0.6 H (0.001-0.429) % Nucleat RBC Rel Count 0.0 (0.00-0.2) % Eos # (Auto) 0.34 (0.04-0.36) x10^3/uL Immature Gran # (Auto) 0.06 H (0.001-0.031) x10^3u/L Absolute Lymphs (auto) 1.17 L (1.18-3.74) x10^3/uL Absolute Monos (auto) 0.72 (0.24-0.86) x10^3/uL Absolute Nucleated RBC 0.00 (0.00-0.012) x10^3u/L Lymphocytes % 12.5 L (19.3-51.7) % Monocytes % 7.7 (4.7-12.5) % Eosinophils % 3.6 (0.7-5.8) % Basophils % 0.7 (0.1-1.2) % Absolute Granulocytes 7.03 H (1.56-6.13) x10^3/uL Basophils # 0.07 (0.01-0.08) x10^3/uL Sodium 138 (135-145) mmol/L Potassium 3.7 (3.5-5.1) mmol/L Chloride 108 H (98-107) mmol/L Carbon Dioxide 23 (22-30) mmol/L Anion Gap 11.7 (5-15) MEQ/L BUN 14 (7-17) mg/dL Creatinine 0.89 (0.52-1.04) mg/dL Estimated GFR 68.8 ML/MIN Glucose 106 (74-106) mg/dL Calcium 9.0 (8.4-10.2) mg/dL Total Bilirubin 0.20 (0.2-1.3) mg/dL AST 30 (14-36) U/L ALT 20 (0-35) U/L Alkaline Phosphatase 91 (38-126) U/L Troponin I (0.000-0.033) ng/mL NT-Pro-B Natriuret Pep 2650 (<300) pg/mL Serum Total Protein 6.2 L (6.3-8.2) g/dL Albumin 4.0 (3.5-5.0) g/dL Urine Color (Yellow) Urine Appearance (Clear) Urine pH (4.6-8.0) Ur Specific [place] (1.005-1.030) Urine Protein (Negative) Urine Glucose (UA) (Negative) mg/dL Urine Ketones (Negative) Urine Blood (Negative) Urine Nitrite (Negative) Urine Bilirubin (Negative) Urine Urobilinogen (0.2) mg/dL Ur Leukocyte Esterase (Negative) U Hyaline Cast (Auto) (0-2) /LPF Urine Microscopic RBC (0-5) /HPF Urine Microscopic WBC (0-5) /HPF Ur Epithelial Cells (None Seen) /HPF Urine Bacteria (None Seen) /HPF Urine Culture Reflexed (NO) Digoxin 0.7 L (0.8-1.9) ng/mL 01/06/25 01/06/25 01/06/25 Range/Units 00:03 00:03 02:39 WBC (3.98-10.04) x10^3/uL RBC (3.93-5.22) x10^6/uL Hgb (11.2-15.7) g/dL Hct (34.1-44.9) % MCV (79.4-94.8) fL MCH (25.6-32.2) pg MCHC (32.2-35.5) g/dL RDW (11.7-14.4) % Plt Count (182-369) x10^3/uL MPV (9.4-12.3) fL Gran % (34.0-71.1) % Immature Gran % (Auto) (0.001-0.429) % Nucleat RBC Rel Count (0.00-0.2) % Eos # (Auto) (0.04-0.36) x10^3/uL Immature Gran # (Auto) (0.001-0.031) x10^3u/L Absolute Lymphs (auto) (1.18-3.74) x10^3/uL Absolute Monos (auto) (0.24-0.86) x10^3/uL Absolute Nucleated RBC (0.00-0.012) x10^3u/L Lymphocytes % (19.3-51.7) % Monocytes % (4.7-12.5) % Eosinophils % (0.7-5.8) % Basophils % (0.1-1.2) % Absolute Granulocytes (1.56-6.13) x10^3/uL Basophils # (0.01-0.08) x10^3/uL Sodium (135-145) mmol/L Potassium (3.5-5.1) mmol/L Chloride (98-107) mmol/L Carbon Dioxide (22-30) mmol/L Anion Gap (5-15) MEQ/L BUN (7-17) mg/dL Creatinine (0.52-1.04) mg/dL Estimated GFR ML/MIN Glucose (74-106) mg/dL Calcium (8.4-10.2) mg/dL Total Bilirubin (0.2-1.3) mg/dL AST (14-36) U/L ALT (0-35) U/L Alkaline Phosphatase (38-126) U/L Troponin I < 0.012 < 0.012 (0.000-0.033) ng/mL NT-Pro-B Natriuret Pep (<300) pg/mL Serum Total Protein (6.3-8.2) g/dL Albumin (3.5-5.0) g/dL Urine Color Yellow (Yellow) Urine Appearance Cloudy A (Clear) Urine pH 6.0 (4.6-8.0) Ur Specific [place] 1.015 (1.005-1.030) Urine Protein Negative (Negative) Urine Glucose (UA) Negative (Negative) mg/dL Urine Ketones Negative (Negative) Urine Blood Negative (Negative) Urine Nitrite Positive A (Negative) Urine Bilirubin Negative (Negative) Urine Urobilinogen 0.2 (0.2) mg/dL Ur Leukocyte Esterase Large A (Negative) U Hyaline Cast (Auto) NONE SEEN (0-2) /LPF Urine Microscopic RBC 0-2 (0-5) /HPF Urine Microscopic WBC >100 A (0-5) /HPF Ur Epithelial Cells None Seen (None Seen) /HPF Urine Bacteria Many A (None Seen) /HPF Urine Culture Reflexed YES (NO) Digoxin (0.8-1.9) ng/mL - Radiology Impressions Radiology Exams & Impressions: Radiology Procedures Category Date Time Status CHEST 1 VIEW (PORTABLE) Stat Exams 01/06/25 00:[address] ANGIOGRAPHY NECK [CT] Stat Exams 01/06/25 04:44 Taken CTA HEAD W AND/OR WO CONTRAST [CT] Stat Exams 01/06/25 04:44 Completed HEAD WITHOUT CONTRAST [CT] Stat Exams 01/06/25 03:33 Taken Assessment/Plan (1) Chest pain Current Visit: Yes Status: Acute Assessment & Plan: - EKG reviewed - ICU tele - Trops x 3 negative - D-Dimer negative - Cardiology consult- feels it may be related to OA of cervical spine - Old cervical spine confirms dx of OA Code(s): R07.9 - CHEST PAIN, UNSPECIFIED (2) A-fib Current Visit: No Status: Chronic Assessment & Plan: - Continue Eliquis per neuro instructions if OK with Cardiology - ICU-Tele - Chronic - With pauses < 3 sec- cardiology notified - Keep Mg+ >2 and K+ > 4- both replaced today Code(s): I48.91 - UNSPECIFIED ATRIAL FIBRILLATION (3) Paroxysmal atrial fibrillation with conversion pauses Current Visit: Yes Status: Acute Assessment & Plan: - Cardiology notified - If > 3 sec nurse to notify cardiology - ICU-Tele Code(s): I48.0 - PAROXYSMAL ATRIAL FIBRILLATION; I49.5 - SICK SINUS SYNDROME (4) Anxiety Current Visit: No Status: Chronic Assessment & Plan: - Pt states alrams in room are making her anxious - Will consider medication- unable to provide anything at this time d/t pauses seen on monitor. Code(s): F41.9 - ANXIETY DISORDER, UNSPECIFIED (5) COPD (chronic obstructive pulmonary disease) Current Visit: No Status: Chronic Assessment & Plan: - Not in acute exacerbation - RA 96% - Cont. home albuterol PRN (6) GERD (gastroesophageal reflux disease) Current Visit: No Status: Chronic Assessment & Plan: - Continue protonix Code(s): K21.9 - GASTRO-ESOPHAGEAL REFLUX DISEASE WITHOUT ESOPHAGITIS (7) HTN (hypertension) Current Visit: No Status: Chronic Qualifiers: Hypertension type: primary hypertension Qualified Code(s): I10 - Essential (primary) hypertension Assessment & Plan: - Bp elevated and meds changed by cardiology to amlodipine and Valsartan VTE: Eliquis PPI: Protonix Next of KIN: Vinicius Héctor [phone] D/C plan: 1-2 days Code status: Full Plan of care time/ critcal care: > 52 minutes Code(s): I10 - ESSENTIAL (PRIMARY) HYPERTENSION
[2025-01-06] MEDS ORDERED: VENTOLIN COMMON CANISTER IH PRN (08:51)
--- NOTE | 2025-01-06 08:59 | XRAY ---
Indication: Pain. Comparison: September 01, 2024 Portable apical lordotic chest now demonstrates cardiomegaly and new small hiatal hernia. No focal infiltrate, consolidation, or large effusion. Bony thorax intact again with osteopenia and minimal degenerative changes. Impression: Cardiomegaly and small hiatal hernia. Negative for acute pneumonic process or CHF.
[2025-01-06] MEDS ORDERED: VENTOLIN COMMON CANISTER IH SCH (09:00)
--- NOTE | 2025-01-06 09:22 | PCM.CONS ---
History of Present Illness - Date of Consult Date of Encounter: 01/06/25 Consulting Statistical Programmer Analyst: DAVID MONSALVE MD Requesting Provider: Attending Provider: DAVID JARAMILLO MD Primary Care Provider: PCP: SUMIT SOLO Consent was: Given for this tele-med encounter - Consult Narrative Reason for Consult: Bradycardia, neck pain HPI: Patient is a 74 year old female with history of persistent atrial fibrillaton, CAD PCI of RCAx2 02/19/2022, PCI of LAD 10/19/2022, HTN, COPD/asthma, gastric antral ulcer hemorrhage 05/15/2024 treated with an Ovesco clip, and anxiety who presented with neck pain radiating to shoulders. This started around 1900 last night. She took sl NTG with relief after 30 minutes. This pain apparently recurred prompting her arrival here last night around midnight. She experienced bilateral finger and left arm numbess and some instability of her left leg. These symptoms generally occur under stress and at different times from her neck pain according to her granddaughter. She underwent a neurology workup which came back negative. Serial troponins were also unremarkable. Patient has a third grade education and is unable to read or write. Patient takes her meds on her own and refuses to always work with her granddaughter to ensure compliance with her medical therapy. Patient does not use a pill box as recommended by her granddaughter. She has many unused medications at home, so it is not clear which medications she is taking. She does have carvedilol prescriptions for 3.125, 6.25 and 12.5 mg tablets. In September, her brass burnisher had her on carvedilol 3.125 mg BID. On arrival she was in atrial fibrillation with a controlled ventricular response. This am, her VR decreased to the 50s and 60s. She started to have frequent pauses greater than 2 seconds prompting consultation. She does have occasional palpitations with her atrial fibrillation but not with the pauses. Patient was previously taking Eliquis in the setting of her atrial fibrillation which was stopped in 05/2024 when she suffered an acute upper GI bleed secondary to a hemorrhagic gastric antral hemorrhage. EGD revealed a blood vessel in the ulcer which was treated with an Ovesco clip. Repeat EGD 2-3 weeks ago revealed no active bleeding. She was referred for placement of the Watchman [place] appendage occluder in May and September 2024. She did not want to go the down to [place], [place] for evaluation. Eliquis was restarted this am when neurology had concerns for an embolic event. She was given Eliquis 10 mg this am followed by 5mg BID. In contrast to her home medication list, patient is taking aspirin without Plavix at home. cc:: The requesting physician will be sent a copy of the consult. - Past Medical History Past Medical History: Yes Neurological History: Migraines ENT History: No Pertinent History Cardiac History: Arrhythmia, Coronary Artery Disease, Hypertension, Myocardial Infarction ([place]) Respiratory History: Asthma, Bronchitis, COPD Endocrine Medical History: No Pertinent History Musculoskelatal History: Arthritis, Osteoarthritis, Osteoporosis GI Medical History: GERD, Ulcer History: No Pertinent History Pyscho-Social History: Anxiety Reproductive Disorders: No Pertinent History Comment: Statistical Programmer Analyst: Dr. Izquierdo ([facility]) - Past Surgical History Past Surgical History: Yes Neuro Surgical History: No Pertinent History Cardiac History: Cardiac Catheterization, Cardiac Stent (OG to proximal and distal RCA 02/19/2022, OG to proximal LAD 10/19/2022.) Respiratory Surgery: No Pertinent History GI Surgical History: Appendectomy, Other (Ovesco Clip placed over hemorrhaging vessel in antral gastric ulcer in 05/15/2024. Repeat EGD 12/20/2024 without actiive bleeding.) Genitourinary Surgical Hx: No Pertinent History Musculskeletal Surgical Hx: Orthopedic Surgery Female Surgical History: Hysterectomy, Tubal Ligation Other Surgical History: teddy knee replacement x2 Significant Family History: no pertinent family hx - Social History Smoking Status: Never smoker Exposure to second hand smoke: No Alcohol: None Drug Use: none - Social Determinants of Health Will the patient participate in the screening: Yes Do you worry about a steady place to live?: No Do you have any problems with any of the following?: No known problems In the past 12 months,have you had to go without utilities?: No Have you or anyone in your house had to go without enough: No Transportation Issues: No Has anyone in your support network made you feel unsafe?: No Does the patient want assistance with any of the above?: No Medications & Allergies Home Medications: Home Medication List Albuterol Sulfate [Proair Hfa] 8.5 gm IH BID 10/18/15 [History Confirmed 01/06/25] Alendronate Sodium 70 mg [Fosamax 70 MG] 70 mg PO Q7D@0600 06/24/23 [Histo ry Confirmed 01/06/25] Atorvastatin Calcium 20 mg PO DAILY 06/24/23 [History Confirmed 01/06/25] Clopidogrel Bisulfate [Plavix] 75 mg PO DAILY 06/24/23 [History Confirmed 01/06/25] Isosorbide Mononitrate 30 mg [Imdur 30 MG] 30 mg PO DAILY 06/24/23 [History Confirmed 01/06/25] Losartan Potassium 50 mg PO DAILY 06/24/23 [History Confirmed 01/06/25] Albuterol 2.5 mg/3 ml Neb [Proventil 2.5 mg/3 ml Neb] 2.5 mg IH Q6H PRN PRN 8 Days #30 06/25/23 [Rx Confirmed 01/06/25] Aspirin 81 gm Chew [Baby Aspirin 81 mg Chew] 1 tab PO DAILY 08/18/24 [History Confirmed 01/06/25] PANTOPRAZOLE 40 mg Tablet [Protonix 40MG Tablet] 40 mg PO DAILY 08/18/24 [History Confirmed 01/06/25] Carvedilol 12.5 mg [Coreg 12.5 mg] 25 mg PO BID 30 Days #30 tablet 08/23/24 [Rx Confirmed 01/06/25] Digoxin 0.125 mg Tablet [Lanoxin 0.125MG TABLET] 0.125 mg PO DAILY 30 Days #30 tablet 08/23/24 [Rx Confirmed 01/06/25] Doxycycline Hyclate 100 mg [Vibramycin 100 MG] 100 mg PO BID 10 Days #5 tab 08/23/24 [Rx Confirmed 01/06/25] Ferrous Sulfate 325 mg [Feosol 325 mg] 325 mg PO DAILY 30 Days #30 tablet 08/23/24 [Rx Confirmed 01/06/25] Hydrocodone/Acetaminophen [Hydrocodone-Acetamin 5-325 mg] 1 tab PO Q6HPRN PRN 3 Days #12 tablet MDD 4 09/01/24 [Rx Confirmed 01/06/25] Hydralazine HCl 75 mg PO BID 01/06/25 [History Confirmed 01/06/25] Nitroglycerin 0.4 mg Tablet [Nitrostat 0.4 MG Tablet] 0.4 mg SL Q5MIN PRN MR X 3 PRN 01/06/25 [History Confirmed 01/06/25] Allergies/Adverse Reactions: Allergies Allergy/AdvReac Type Severity Reaction Status Date / Time shrimp Allergy Severe Tightness Verified 01/06/25 06:29 of Throat mushroom Allergy Unknown Verified 01/06/25 00:32 Exam - Vitals Vital Signs: Vital Signs - 24 hr Temp Pulse Pulse Resp BP BP Pulse Ox 01/06/25 08:01 69 9 L 187/97 96 01/06/25 07:44 98.1 F 67 21 172/111 197/98 97 01/06/25 07:40 56 L 20 96 01/06/25 06:33 96 01/06/25 06:24 58 L 01/06/25 04:00 58 L 20 197/98 98 01/06/25 03:31 74 18 197/98 98 01/06/25 03:00 64 16 188/95 97 01/06/25 00:39 72 22 188/95 96 01/06/25 00:04 98.1 F 114 H 14 188/95 98 01/06/25 00:02 98 01/05/25 23:57 98.1 F 77 80 14 96 General:: no acute distress HEENT: EOMI, No JVD Cardiovascular Exam: normal heart sounds, irregular, No friction rub, No gallop Respiratory Exam: lungs clear SpO2: 96 Oxygen Delivery: Room Air Gastrointestinal/Abdomen Exam: normal bowel sounds Extremity Exam: other (2+ right DP, 1+ left DP), No edema Neurologic: forestry supervisor II-XII grossly intact, No motor deficits (Grossly nonfocal.) Results Vital Signs: Vital Signs - 24 hr Temp Pulse Pulse Resp BP BP Pulse Ox 01/06/25 08:01 69 9 L 187/97 96 01/06/25 07:44 98.1 F 67 21 172/111 197/98 97 01/06/25 07:40 56 L 20 96 01/06/25 06:33 96 01/06/25 06:24 58 L 01/06/25 04:00 58 L 20 197/98 98 01/06/25 03:31 74 18 197/98 98 01/06/25 03:00 64 16 188/95 97 01/06/25 00:39 72 22 188/95 96 01/06/25 00:04 98.1 F 114 H 14 188/95 98 01/06/25 00:02 98 01/05/25 23:57 98.1 F 77 80 14 96 Pain Assessment - Last Documented Pain Intensity 2 Intake and Output: Intake & Output 01/03/25 01/04/25 01/05/25 01/06/25 11:59 11:59 11:59 11:59 Weight 60.3 kg LAB: I have reviewed the Labs in [facility]. Radiology Exams: Radiology Procedures Category Date Time Status CHEST 1 VIEW (PORTABLE) Stat Exams 01/06/25 00:[address] ANGIOGRAPHY NECK [CT] Stat Exams 01/06/25 04:44 Taken CTA HEAD W AND/OR WO CONTRAST [CT] Stat Exams 01/06/25 04:44 Completed HEAD WITHOUT CONTRAST [CT] Stat Exams 01/06/25 03:33 Taken CARDIOLOGY TTE 08/19/2024: 1. Normal left ventricular systolic function. 2. Left ventricular ejection fraction estimated by 2D at 60-65 percent. 3. Mild left atrial enlargement. 4. Mild mitral valve regurgitation. 5. Normal pericardium. 6. There is mild tricuspid valve regurgitation. Per my review, moderate concentric LVH is also present. Cardiac Catheterization 05/10/2024: 1. Patent stent in proximal LAD. Patent stent in proximal and distal RCA. 2. Otherwise, residual moderate nonobstructive disease. Small vessel disease in the distal left circ and distal RCA. 3. LVEDP 14 mmHg. No gradient across the aortic valve. RADIOLOGY CXR (AP) 01/06/2025: Cardiomegaly and small hiatal hernia. Negative for acute pneumonic process or CHF. CTA of head with and without contrast 01/06/2025: No evidence of hemodynamically significant stenosis or aneurysm. No evidence of dissection. Tracing 1 Attestation: I have reviewed this EKG and interpreted as documented below. EKG Narrative: ECGs: 01/06/2025 at 0940: Atrial fibrillation with slow ventricular response at 56 bpm. 0.5 - 1.0 mm horizontal to downsloping ST depression in the anterolateral and inferior leads. 01/06/2025 at 0934: Atrial fibrillation at 71 bpm. 0.5 - 1.0 mm horizontal to downsloping ST depression in the anterolateral and inferior leads. 08/18/2024: Atypical atrial flutter with variable AV block at 127 bpm. 0.5 - 1.0 mm horizontal to downsloping ST depression in the anterolateral and inferior leads. 05/10/2024: Sinus bradycardia at 51 bpm. 0.5 - 1.0 mm horizontal to downsloping ST depression in the anterolateral and inferior leads. Assessment & Plan (1) Bradycardia Current Visit: Yes Status: Acute Assessment & Plan: Frequent pauses under 3.0 seconds in duration except for one 3.05 second pause while in atrial fibrillation. Secondary to AV benito blocking agents (digoxin + carvedilol). She has at least 3 strengths of carvedilol at home, and it is unclear which dose she had been taking. Overall VR in mid 50s to mid 60s this am leading to frequent pauses greater than 2 seconds. Will hold both her digoxin and carvedilol and observe VR. Plan to start carvedilol 3.125 mg BID tonight if her VR shows an upward trend in in rate. Code(s): R00.1 - BRADYCARDIA, UNSPECIFIED (2) Persistent atrial fibrillation Current Visit: Yes Status: Chronic Assessment & Plan: Now with a slow ventricular response on digoxin + carvedilol. Anticoagulation with Eliquis was discontinued due to an acute UGI bleed in 05/2024. Repeat EGD on 12/20/2024 did not reveal any residual bleeding. She was referred to [place] for a Watchman procedure in 05/2024 and 09/2024. She has refused to go to either of these appointments. It reasonable to restart Eliquis at 5 mg by mouth BID based on EGD report (Her steam shovel runner is on vacation and is not reachable). Digoxin level is acceptable at 0.7. Will hold all AV benito blocking agents to determine if her intrinsic VR will remain slow. Hopefully can add a low dose of carvedilol if her VR rises sufficiently. Code(s): I48.19 - OTHER PERSISTENT ATRIAL FIBRILLATION (3) Atherosclerosis of coronary artery with angina pectoris Current Visit: Yes Status: Acute Qualifiers: Coronary Disease-Associated Artery/Lesion type: [place] artery [place] vs. transplanted heart: [place] heart Qualified Code(s): I25.119 - Atherosclerotic heart disease of [place] coronary artery with unspecified angina pectoris Assessment & Plan: Stable pattern which occurs under emotional stress. Her granddaughter is getting on 01/08/2025, and patient is stressing over the number of people who will be there. Her symptoms of angina have typical and atypical features. Symptoms have included interscapular pain, neck pain, shoulder pain, left arm numbness, and tingling fingers on both hands (in addition to symptom in one leg which I cannot explain). Her presentation is typical of her angina and not a CVA. Cardiac cath in 05/2024 demonstrated patent stents and small vessel CAD. She can be treated medically. Change NTP to isosorbide mononitrate 30 mg daily. Add amlodipine 5 mg daily which will also help with BP control. Await VR trend prior to restarting carvedilol. With the initiation of Eliquis this am, will plan to discontinue aspirin (not taking Plavix prior to admission). Code(s): I25.119 - ATHSCL HEART DISEASE OF [place] ART W UNSP ANG PCTRS (4) HTN (hypertension) Current Visit: No Status: Chronic Qualifiers: Hypertension type: primary hypertension Qualified Code(s): I10 - Essential (primary) hypertension Assessment & Plan: Uncontrolled. Has remained moderate to severely elevated since admission. Will discontinue losartan and hydrazine and start valsartan 160 mg daily and amlodipine 5 mg daily. If VR increases today, will restart carvedilol at a low dose. Code(s): I10 - ESSENTIAL (PRIMARY) HYPERTENSION - Encounter Encounter: The entirety of this encounter was performed via Telemedicine using audio and visual. Permission granted by patient for this type of encounter. Case discussed with Rebekah Dumont NP. Additional history was obtained from patient's granddaughter, Francesca Medina. Information obtained from her PCP's office, Dr. Sumit Solo, which included a progress note from her brass burnisher, Dr. Hayden Bedoya. Unable to speak with her steam shovel runner, Dr. Harkins, as he is on vacation. David Monsalve MD [facility] [phone]
[2025-01-06] MEDS ORDERED: BABY ASPIRIN 81 MG CHEW PO SCH (10:00)
[2025-01-06] MEDS: DIOVAN 80 MG PO SCH (11:43)
[2025-01-06] MEDS: NORVASC 5 MG PO SCH (11:43)
[2025-01-06] MEDS: Protonix 40MG Tablet PO SCH (11:43)
[2025-01-06] MEDS: LIPITOR 40MG PO SCH (11:43)
[2025-01-06] MEDS: FEOSOL 325 MG PO SCH (11:43)
[2025-01-06] MEDS: Imdur 30 MG PO SCH (13:36)
[2025-01-06] MEDS: Klor Con PO ONE (13:36)
[2025-01-06] MEDS: ECOTRIN 81 MG PO SCH (13:42)
[2025-01-06] MEDS: PLAVIX Tablet PO SCH (13:42)
[2025-01-06] MEDS: Cozaar 50 MG PO SCH (13:43)
[2025-01-06] MEDS: MAG-OX 400 PO ONE (15:53)
[2025-01-06] MEDS: ELIQUIS 2.5 MG TABLET PO SCH (21:54)
[2025-01-06] MEDS: Coreg 3.125 MG PO SCH (21:54)
[2025-01-07 05:00] LABS: Hematocrit 40.4 % (34.1-44.9); Hemoglobin 12.8 g/dL (11.2-15.7); Mean Corpuscular Hemoglobin 30.8 pg (25.6-32.2); Mean Corpuscular Hgb Concent. 31.7 g/dL (32.2-35.5); Platelet Count 219 x10^3/uL (182-369); Red Blood Count 4.15 x10^6/uL (3.93-5.22); White Blood Count 8.1 x10^3/uL (3.98-10.04)
[2025-01-07 05:18] LABS: Calcium 9.0 mg/dL (8.4-10.2); Carbon Dioxide 26.0 mmol/L (22-30); Creatinine 1 0.85 mg/dL (0.52-1.04); EST GLOMERULAR FILTRATION RATE 72.8 ML/MIN; Glucose 99.0 mg/dL (74-106); Potassium 4.1 mmol/L (3.5-5.1); SGOT/AST 23.0 U/L (14-36); SGPT/ALT 17.0 U/L (0-35); Total Protein 6.1 g/dL (6.3-8.2)
[2025-01-07] MEDS: TYLENOL 325 MG PO PRN (08:51)
[2025-01-07 08:58] VITALS: O2SAT 98
[2025-01-07] MEDS: Lanoxin 0.125MG TABLET PO SCH (09:49)
[2025-01-07] MEDS: ROCEPHIN 1 GM / 100 ML NaCl 1 GM/100 ML IVPB IV SCH (09:50)
--- NOTE | 2025-01-07 10:41 | PCM.DS ---
Discharge Summary Date of Admission: 01/06/25 06:18 Date of Discharge: 01/07/25 Admitting Physician: DAVID JARAMILLO MD Consults: Consults on Case 01/06/25 07:30 Consult Cardiology STAT Primary Care Provider: JOSE SOLO Allergies Allergies shrimp Allergy (Severe, Verified 01/06/25 06:29) Tightness of Throat mushroom Allergy (Unknown, Verified 01/06/25 00:32) food allergy Hospital Summary - Hospital Course Hospital Course: Ms. Anaya is a 74-year-old female with a complex medical history including atrial fibrillation (not on anticoagulation), hypertension, coronary artery disease with prior myocardial infarction, asthma, COPD, GERD, arthritis, and migraine, who presented on 01/06/25 with chest pain radiating to her right shoulder and neck. Initial workup was unremarkable, but urinalysis was consistent with a urinary tract infection, for which she was treated with IV Rocephin. While in the ED, she developed new neurological symptoms including left leg instability and left hand tingling. Stroke evaluation revealed an NIHSS of [address] head. Neurology recommended CTA imaging, which was performed, and advised restarting anticoagulation with Eliquis. Of note, anticoagulation had previously been stopped in preparation for a Watchman procedure, which was never completed. During her hospital stay, the patient experienced rhythm pauses and was transferred to the ICU for monitoring. Cardiology adjusted her medications, including starting valsartan and amlodipine, and advised continued observation unless pauses exceeded three seconds. She also reported missing Coreg for three days prior to admission. The patient declined home health services but agreed to have her pill digital sales planner set up prior to discharge. Her condition improved, with resolution of rhythm pauses and stable heart rate. Given her upcoming family event, cardiology approved discharge on 01/07/25 with outpatient follow-up with her PCP and telemarketing representative. At the time of discharge, she denied chest pain or shortness of breath. - Vitals & Intake/Output Vital Signs: Vital Signs Temperature 98.9 F 01/07/25 08:30 Pulse Rate 84 01/07/25 09:49 Respiratory Rate 19 01/07/25 08:30 Blood Pressure 142/76 01/07/25 09:49 O2 Sat by Pulse Oximetry 98 01/07/25 07:31 Intake & Output: Intake & Output 1001/05/25 01/06/25 01/07/25 11:59 11:59 11:59 11:59 Intake Total 1225 Balance 1225 Weight 60.3 kg - Lab Result Diagrams: 01/07/25 04:14 01/07/25 04:14 Lab Results-Last 24 Hrs: Lab Results-Last 24 Hours 01/07/25 01/07/25 01/07/25 Range/Units 04:14 04:14 04:14 WBC 8.1 (3.98-10.04) x10^3/uL RBC 4.15 (3.93-5.22) x10^6/uL Hgb 12.8 (11.2-15.7) g/dL Hct 40.4 (34.1-44.9) % MCV 97.3 H (79.4-94.8) fL MCH 30.8 (25.6-32.2) pg MCHC 31.7 L (32.2-35.5) g/dL RDW 15.1 H (11.7-14.4) % Plt Count 219 (182-369) x10^3/uL MPV 9.8 (9.4-12.3) fL Sodium 139 (135-145) mmol/L Potassium 4.1 (3.5-5.1) mmol/L Chloride 108 H (98-107) mmol/L Carbon Dioxide 26 (22-30) mmol/L Anion Gap 8.8 (5-15) MEQ/L BUN 11 (7-17) mg/dL Creatinine 0.85 (0.52-1.04) mg/dL Estimated GFR 72.8 ML/MIN Glucose 99 (74-106) mg/dL Calcium 9.0 (8.4-10.2) mg/dL Magnesium 1.9 (1.6-2.3) mg/dL Total Bilirubin 0.40 (0.2-1.3) mg/dL AST 23 (14-36) U/L ALT 17 (0-35) U/L Alkaline Phosphatase 86 (38-126) U/L Serum Total Protein 6.1 L (6.3-8.2) g/dL Albumin 3.8 (3.5-5.0) g/dL Micro Results-Entire Visit: Microbiology 01/06/25 00:03 Urine Culture - Preliminary Clean Catch Midstream GRAM NEGATIVE ID AND SENSITIVITY PENDING - Radiology Exams Ordered Rad Exams-Entire Visit: Radiology Procedures Category Date Time Status CHEST 1 VIEW (PORTABLE) Stat Exams 01/06/25 00:[address] ANGIOGRAPHY NECK [CT] Stat Exams 01/06/25 04:44 Taken CTA HEAD W AND/OR WO CONTRAST [CT] Stat Exams 01/06/25 04:44 Completed HEAD WITHOUT CONTRAST [CT] Stat Exams 01/06/25 03:33 Taken - Procedures and Test Procedures and Tests throughout Hospitalization: Therapy Orders & Screens 01/06/25 08:04 RT Screen per Nursing Assess ONCE Comment: Protocol Order Physician Instructions: Greater than 3 points order RT Admission Screen Reason For Exam: Triggered on Admission Diagnosis: Acute coronary syndrome Diagnosis: Acute coronary syndrome Pneumonia: No Home O2: Yes: PRN at noc Asthma: No CHF: Yes Home CPAP/BIPAP: No Home Nebs/MDI: Yes Total Points: 13 01/06/25 09:18 EKG STAT Comment: Diagnosis: Acute coronary syndrome EKG Reason: Other 01/06/25 09:48 Respiratory Therapy Assessment DAILY Comment: Diagnosis: Acute coronary syndrome Discharge Exam General Appearance: no apparent distress, alert, anxiety Neurologic Exam: alert, oriented x 3, cooperative, spinner frame II-XII nml as tested, normal mood/affect, nml cerebellar function, sensation nml, No motor deficits Eye Exam: PERRL, EOMI, eyes nml inspection Ears, Nose, Throat Exam: normal ENT inspection, pharynx normal, moist mucous membranes Neck Exam: normal inspection, non-tender, supple, full range of motion Respiratory Exam: normal breath sounds, lungs clear, No respiratory distress Cardiovascular Exam: regular rate/rhythm, normal heart sounds Gastrointestinal/Abdomen Exam: soft, No tenderness, No mass Pelvic Exam: deferred Rectal Exam: deferred Back Exam: normal inspection, normal range of motion, No CVA tenderness, No vertebral tenderness Extremity Exam: normal inspection, normal range of motion Skin Exam: normal color, warm, dry Final Diagnosis/Problem List - Final Discharge Diagnosis/Problem (1) Chest pain Current Visit: Yes Status: Acute Code(s): R07.9 - CHEST PAIN, UNSPECIFIED (2) A-fib Current Visit: No Status: Chronic Code(s): I48.91 - UNSPECIFIED ATRIAL FIBRILLATION (3) Paroxysmal atrial fibrillation with conversion pauses Current Visit: Yes Status: Acute Code(s): I48.0 - PAROXYSMAL ATRIAL FIBRILLATION; I49.5 - SICK SINUS SYNDROME (4) Anxiety Current Visit: No Status: Chronic Code(s): F41.9 - ANXIETY DISORDER, UNSPECIFIED (5) COPD (chronic obstructive pulmonary disease) Current Visit: No Status: Chronic (6) GERD (gastroesophageal reflux disease) Current Visit: No Status: Chronic Code(s): K21.9 - GASTRO-ESOPHAGEAL REFLUX DISEASE WITHOUT ESOPHAGITIS (7) HTN (hypertension) Current Visit: No Status: Chronic Assessment & Plan: (1) Chest pain Current Visit: Yes Status: Acute Assessment & Plan: - EKG reviewed - ICU tele - Trops x 3 negative - D-Dimer negative - Cardiology consult- feels it may be related to OA of cervical spine - Old cervical spine confirms dx of OA - CBC, CMP reviewed - CP resolved Code(s): R07.9 - CHEST PAIN, UNSPECIFIED (2) A-fib Current Visit: No Status: Chronic Assessment & Plan: - Continue Eliquis per neuro instructions if OK with Cardiology - ICU-Tele - Chronic - With pauses < 3 sec- cardiology notified - Keep Mg+ >2 and K+ > 4- both replaced today 01/07 - Pauses resolved Code(s): I48.91 - UNSPECIFIED ATRIAL FIBRILLATION (3) Paroxysmal atrial fibrillation with conversion pauses Current Visit: Yes Status: Acute Assessment & Plan: - Cardiology notified - If > 3 sec nurse to notify cardiology - ICU-Tele 01/07 - resolved with med changes by cardiology Code(s): I48.0 - PAROXYSMAL ATRIAL FIBRILLATION; I49.5 - SICK SINUS SYNDROME (4) Anxiety Current Visit: No Status: Chronic Assessment & Plan: - Pt states alarms in room are making her anxious - Will consider medication- unable to provide anything at this time d/t pauses seen on monitor. Code(s): F41.9 - ANXIETY DISORDER, UNSPECIFIED (5) COPD (chronic obstructive pulmonary disease) Current Visit: No Status: Chronic Assessment & Plan: - Not in acute exacerbation - RA 96% - Cont. home albuterol PRN (6) GERD (gastroesophageal reflux disease) Current Visit: No Status: Chronic Assessment & Plan: - Continue protonix Code(s): K21.9 - GASTRO-ESOPHAGEAL REFLUX DISEASE WITHOUT ESOPHAGITIS (7) HTN (hypertension) Current Visit: No Status: Chronic Qualifiers: Hypertension type: primary hypertension Qualified Code(s): I10 - Essential (primary) hypertension Assessment & Plan: - Bp elevated and meds changed by cardiology to amlodipine and Valsartan 01/07 - Bp elevated again this AM but improved after meds provided Code(s): I10 - ESSENTIAL (PRIMARY) HYPERTENSION (8) Literacy level of illiterate Current Visit: Yes Status: Chronic Assessment & Plan: - Unable to read or write, adds to complexity - ACO to be involved - Pt refuses HHC - Granddaughter helps with meds but pt is argumentative per granddaughter. Code(s): Z55.0 - ILLITERACY AND LOW-LEVEL LITERACY (9) UTI (urinary tract infection) Current Visit: Yes Status: Acute Assessment & Plan: - UC gram negative- sensitivity pending - Ceftriaxone will change to PO for OP D/C plan of care time: > 50 minutes Code(s): N39.0 - URINARY TRACT INFECTION, SITE NOT SPECIFIED - Discharge Discharge Date: 01/07/25 Disposition: Home, Self-Care Condition: Stable Prescriptions: New Carvedilol 3.125 mg [Coreg 3.125 MG] 3.125 mg PO BID 30 Days #60 tablet Apixaban [Eliquis 2.5 mg Tablet] 5 mg PO BID 30 Days #60 tablet Amlodipine Besylate 5 mg [Norvasc 5 mg] 5 mg PO QAM 30 Days #30 tablet Valsartan [Diovan] 160 mg PO DAILY 30 Days #60 tablet Continue Albuterol Sulfate [Proair Hfa] 8.5 gm IH BID Isosorbide Mononitrate 30 mg [Imdur 30 MG] 30 mg PO DAILY Atorvastatin Calcium 20 mg PO DAILY Alendronate Sodium 70 mg [Fosamax 70 MG] 70 mg PO Q7D@0600 Albuterol 2.5 mg/3 ml Neb [Proventil 2.5 mg/3 ml Neb] 2.5 mg IH Q6H PRN PRN 8 Days #30 PRN Reason: Shortness Of Breath/Wheezing PANTOPRAZOLE 40 mg Tablet [Protonix 40MG Tablet] 40 mg PO DAILY Ferrous Sulfate 325 mg [Feosol 325 mg] 325 mg PO DAILY 30 Days #30 tablet Digoxin 0.125 mg Tablet [Lanoxin 0.125MG TABLET] 0.125 mg PO DAILY 30 Days #30 tablet Nitroglycerin 0.4 mg Tablet [Nitrostat 0.4 MG Tablet] 0.4 mg SL Q5MIN PRN MR X 3 PRN PRN Reason: Chest Pain Discontinued Clopidogrel Bisulfate [Plavix] 75 mg PO DAILY Losartan Potassium 50 mg PO DAILY Aspirin 81 gm Chew [Baby Aspirin 81 mg Chew] 1 tab PO DAILY Carvedilol 12.5 mg [Coreg 12.5 mg] 25 mg PO BID 30 Days #30 tablet Doxycycline Hyclate 100 mg [Vibramycin 100 MG] 100 mg PO BID 10 Days #5 tab Hydrocodone/Acetaminophen [Hydrocodone-Acetamin 5-325 mg] 1 tab PO Q6HPRN PRN 3 Days #12 tablet MDD 4 PRN Reason: Pain Hydralazine HCl 75 mg PO BID Additional Instructions: FAMILY TO SET UP ALL MEDICATIONS- DISCARD ANY OLD MEDS [facility] HAS A COLLECTION BIN FOR OLD MEDS IN THE [facility] WILL CONTACT YOU TO SEE IF THEY CAN ASSIST IN ANY WAY. YOU CAN CONTACT THEM IF ASSISTANCE IS NEEDED AT [phone] ext [phone] Follow up with: JOSE SOLO [Primary Care Provider, [facility]ILY [facility]] - 01/11/25 9:15 am
[2025-01-07 12:27] VITALS: TEMP 99.1
[2025-01-07 15:32] VITALS: BP 112/71; PULSE 97; RESP 9
--- NOTE | 2025-01-07 16:03 | XRAY ---
CLINICAL HISTORY: numbness COMPARISON: None. TECHNIQUE: A contrast-enhanced, thin-slice CT angiography scan of the carotid vessels was performed with intravenous contrast. Angiographic images were processed, and 3D MIP images were acquired for interpretation. Contiguous axial images were obtained. Reformatted coronal and sagittal images were also reviewed. If intravenous contrast material had not been administered, the likelihood of detecting abnormalities relevant to the patient's condition would have been substantially decreased. The CT scan was performed according to ALARA (as low as reasonably achievable) principles. FINDINGS: There is a non-dominant right vertebral artery with diffuse thinning of the intracranial segment. The included great vessels of the aortic arch are grossly unremarkable. The common carotid artery, carotid bulb, internal carotid artery, and origin of the external carotid artery are well opacified. The vertebral arteries are well opacified. The jugular veins are well opacified. The included lung apices are grossly unremarkable. The thyroid gland appears unremarkable. IMPRESSION: No evidence of stenosis or aneurysm. No evidence of dissection. Non-dominant right vertebral artery with diffuse thinning of the intracranial segment. Electronically Signed by: Zain Bates MD. (01/06/2025 06:27:01 EDT)
--- NOTE | 2025-01-07 16:04 | XRAY ---
CLINICAL HISTORY: weakness COMPARISON: None. TECHNIQUE: Multiple axial images were obtained from the skull base to the vertex without contrast. CT scan was performed according to ALARA (As Low As Reasonably Achievable). FINDINGS: There is cerebral atrophy. Old lacunar infarcts are noted involving the left basal ganglia. No evidence of space-occupying lesion, hemorrhage, edema, mass effect, midline shift, extra-axial collection, or hydrocephalus is noted. The basal cisterns are symmetric and normal in size and configuration. There are scattered periventricular hypodensities, as can be seen with chronic microvascular ischemic changes. The rausch-white matter differentiation is preserved. The visualized paranasal sinuses and mastoid air cells are well aerated. Orbital contents are within normal limits. Bony structures are intact. IMPRESSION: 1. No evidence of acute intracranial abnormality is demonstrated. 2. Chronic microvascular ischemic changes. 3. Cerebral atrophy. 4. Old lacunar infarcts are noted involving the left basal ganglia. Electronically Signed by: Zain Bates MD. (01/06/2025 04:06:56 EDT)
[2025-01-08] MEDS ORDERED: DIOVAN 80 MG PO SCH (10:00)
[2025-01-11] MEDS ORDERED: Fosamax 70 MG PO SCH (06:00)
== END 2025-01-07 15:14 | disposition home or self-care (01) ==
LOC: ED 23:57 → MED SURG 01-06 06:18 → ICU 01-06 07:41
PROVIDERS: ADMIT Internal Medicine; ATTEND Internal Medicine
DX: R07.9 Chest pain, unspecified (principal); Z55.0 Illiteracy and low-level literacy; I48.91 Unspecified atrial fibrillation; R00.1 Bradycardia, unspecified; I25.119 Atherosclerotic heart disease of native coronary artery with unspecified angina pectoris; I10 Essential (primary) hypertension; I25.10 Atherosclerotic heart disease of native coronary artery without angina pectoris; I25.2 Old myocardial infarction; J44.9 Chronic obstructive pulmonary disease, unspecified; K21.9 Gastro-esophageal reflux disease without esophagitis; I48.0 Paroxysmal atrial fibrillation; I49.5 Sick sinus syndrome; N39.0 Urinary tract infection, site not specified; Z79.01 Long term (current) use of anticoagulants; Z79.899 Other long term (current) drug therapy
CPT/HCPCS: 36415; 70450; 70496; 70498; 71045; 80053; 80162; 81001; 83735; 83880; 84484; 85025; 85027; 85379; 87077; 87086; 87186; 93005; 93041; 93268; 94760; 99285; G0378; Q3014

== ENCOUNTER 2025-03-02 15:42 | Emergency (ER) | payer MEDICARE ==
--- NOTE | 2025-03-02 15:47 | ERPHSYRPT ---
- History of Present Illness Historian: patient, family Exam Limitations: no limitations Timing/Duration: today Activities at Onset: none Abdominal Pain Onset Location: epigastric Pain Radiation: no radiation Severity of Pain-Max: mild Severity of Pain-Current: mild Modifying Factors: Improves With: vomiting (Black vomitus) Associated Symptoms: fever/chills, nausea, vomiting, weakness Previous symptoms: no prior history, no recent treatment Hx Tetanus, Diphtheria Vaccination/Date Given: Yes Hx Influenza Vaccination/Date Given: Yes Hx Pneumococcal Vaccination/Date Given: Yes <HIRO GARRISON - Last Filed: 03/02/25 19:21> <RHETT HILL - Last Filed: 03/02/25 20:54> - History of Present Illness Time Seen by Provider: 03/02/25 15:47 Physician History: This is a 74-year-old white female patient brought to the emergency department by private vehicle accompanied by her spouse and is a patient of Dr. Solo with fevers and vomiting. Patient has a history of atrial fibrillation. Upon arrival to the emergency department she has a fever of 101 F. In addition she has a rapid heart rate and atrial fibrillation rhythm. Patient states she took all her medications today including Eliquis that she is taking as well as digoxin for her atrial fibrillation. Patient denies chest pain. She has no shortness of breath. She has no abdominal pain. She states she did vomit some black emesis. She is nauseated at this time. Patient did not take any Pepto- Bismol. Patient has a history of bleeding ulcer disease in the past. Patient has a history of hyperlipidemia, hypertension, COPD and gastroesophageal reflux disease. She also has a history of coronary disease and has a stent in place. (HIRO GARRISON) Allergies/Adverse Reactions: shrimp Allergy (Severe, Verified 01/06/25 06:29) Tightness of Throat mushroom Allergy (Unknown, Verified 01/06/25 00:32) food allergy Home Medications: Albuterol Sulfate [Proair Hfa] 8.5 gm IH BID 10/18/15 [History] Alendronate Sodium 70 mg [Fosamax 70 MG] 70 mg PO Q7D@0600 06/24/23 [History] Atorvastatin Calcium 20 mg PO DAILY 06/24/23 [History] Isosorbide Mononitrate 30 mg [Imdur 30 MG] 30 mg PO DAILY 06/24/23 [History] PANTOPRAZOLE 40 mg Tablet [Protonix 40MG Tablet] 40 mg PO DAILY 08/18/24 [History] Nitroglycerin 0.4 mg Tablet [Nitrostat 0.4 MG Tablet] 0.4 mg SL Q5MIN PRN MR X 3 PRN 01/06/25 [History] Travel Risk - International Travel Have you traveled outside of the country in past 3 weeks: No - Emerging Infectious Disease Are you exhibiting symptoms associated with any current EIDs: Yes Symptoms: Fever, Headaches/Body Aches/, Vomitting <HIRO GARRISON - Last Filed: 03/02/25 19:21> - Review of Systems Constitutional: Fever, Malaise, Weakness Eyes: No Symptoms Ears, Nose, & Throat: No Symptoms Respiratory: No Symptoms Cardiac: No Symptoms Abdominal/Gastrointestinal: Nausea, Vomiting, Appetite Changes, No Abdominal Pain Genitourinary Symptoms: No Symptoms Musculoskeletal: No Symptoms Skin: No Symptoms Neurological: No Symptoms Psychological: No Symptoms Endocrine: No Symptoms Hematologic/Lymphatic: No Symptoms Immunological/Allergic: No Symptoms All Other Systems: Reviewed and Negative <HIRO GARRISON - Last Filed: 03/02/25 19:21> - Past Medical History Pertinent Past Medical History: Yes Neurological History: Migraines ENT History: No Pertinent History Cardiac History: Arrhythmia, Coronary Artery Disease, Hypertension, Myocardial Infarction ([place]) Respiratory History: Asthma, Bronchitis, COPD Endocrine Medical History: No Pertinent History Musculoskeletal History: Arthritis, Osteoarthritis, Osteoporosis GI Medical History: GERD, Ulcer History: No Pertinent History Psycho-Social History: Anxiety Female Reproductive Disorders: No Pertinent History 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 Repeat EGD 12/20/2024 without actiive bleeding.) Genitourinary: No Pertinent History Musculoskeletal: Orthopedic Surgery Female Surgical History: Hysterectomy, Tubal Ligation Other Surgical History: teddy knee replacement x2 Significant Family History: no pertinent family hx - Social History Smoking Status: Never smoker Exposure to second hand smoke: No Drug Use: none - Social Determinants of Health Will the patient participate in the screening: Yes Do you worry about a steady place to live?: No In the past 12 months,have you had to go without utilities?: No Transportation Issues: No Has anyone in your support network made you feel unsafe?: No Have you or anyone in your house had to go w/o enough food: No <HIRO GARRISON - Last Filed: 03/02/25 19:21> - Physical Exam General Appearance: mild distress, alert, anxiety Eye Exam: PERRL/EOMI, eyes nml inspection Ears, Nose, Throat Exam: dry mucous membranes Neck Exam: normal inspection, non-tender, full range of motion Respiratory Exam: normal breath sounds, lungs clear, airway intact, No chest tenderness, No respiratory distress Cardiovascular Exam: tachycardia Gastrointestinal/Abdomen Exam: soft, normal bowel sounds, No tenderness Rectal Exam: not done Back Exam: normal inspection, normal range of motion, No CVA tenderness Extremity Exam: normal inspection, normal range of motion, pelvis stable Neurologic Exam: alert, oriented x 3, cooperative, accounts clerk II-XII nml as tested, nml cerebellar function, nml station & gait, sensation nml Skin Exam: normal color, warm, dry Lymphatic Exam: No adenopathy SpO2 Interpretation: airway management int. O2 Delivery: Room Air <HIRO GARRISON - Last Filed: 03/02/25 19:21> - Nursing Vital Signs Nursing Vital Signs: Initial Vital Signs Temperature 101.8 F 03/02/25 15:42 Pulse Rate 151 H 03/02/25 15:42 Respiratory Rate 28 H 03/02/25 15:42 Blood Pressure 140/101 03/02/25 15:42 O2 Sat by Pulse Oximetry 96 03/02/25 15:42 Pain Scale Pain Intensity 0 - Course Nursing assessment & vital signs reviewed: Yes EKG Interpreted by Me: RATE (140), A-fib, NORMAL AXIS, NORMAL INTERVALS, NORMAL QRS, Other (QTc is 402. No acute ischemia on this twelve-lead EKG.) <HIRO GARRISON - Last Filed: 03/02/25 19:21> - CT Exams Head CT Interpretation: Tele-radiologist Report (Stable nonacute senile brain with remote bilateral basal ganglia infarcts compared to CT head and CTA head 01/06/2025) <RHETT HILL - Last Filed: 03/02/25 20:54> Ordered Tests: Active Orders 24 hr Category Date Time Status Online Affiliate Marketing Manager STAT Care 03/02/25 16:18 Active EKG-ER Only STAT Care 03/02/25 16:17 Completed IV Insertion STAT Care 03/02/25 16:17 Active Pulse Oximetry (ED) STAT Care 03/02/25 16:17 Active Telemetry q4h Care 03/02/25 17:30 Active CHEST 1 VIEW (PORTABLE) Stat Exams 03/02/25 16:17 Completed HEAD WITHOUT CONTRAST [CT] Stat Exams 03/02/25 19:12 Taken BLOOD CULTURE Stat Lab 03/02/25 16:10 Received CBC W DIFF Stat Lab 03/02/25 16:10 Completed CMP Stat Lab 03/02/25 16:00 Completed CULTURE,URINE Stat Lab 03/02/25 18:20 Received Lactic Acid Stat Lab 03/02/25 16:24 Completed MONO SCREEN Stat Lab 03/02/25 16:10 Completed NT PRO BNPII Stat Lab 03/02/25 16:00 Completed TROPONIN Q4H Lab 03/02/25 20:20 Received TROPONIN Q4H Lab 03/03/25 00:30 Ordered TROPONIN Stat Lab 03/02/25 16:00 Completed UA W/RFX UR CULTURE Stat Lab 03/02/25 18:20 Completed Medication Summary Generic Name Dose Route Start Last Admin Trade Name Freq PRN Reason Stop Dose Admin Sodium Chloride 1,000 mls @ 100 mls/hr 03/02/25 16:30 03/02/25 16:44 Sodium Chloride 0.9% 1000 Ml IV 04/01/25 16:29 100 mls/hr .Q10H HOLGER Administration Discontinued Medications Generic Name Dose Route Start Last Admin Trade Name Freq PRN Reason Stop Dose Admin Acetaminophen 650 mg 03/02/25 16:38 03/02/25 17:05 Acetaminophen 325 Mg Tablet PO 03/02/25 16:39 Not Given STAT ONE Digoxin 0.5 mg 03/02/25 17:29 03/02/25 18:25 Digoxin 0.5 Mg/2 Ml Injection IV 03/02/25 17:30 0.5 mg STAT ONE Administration Digoxin Confirm 03/02/25 18:20 Digoxin 0.5 Mg/2 Ml Injection Administered 03/02/25 18:21 Dose 0.5 mg .ROUTE .STK-MED ONE Droperidol 0.625 mg 03/02/25 16:41 03/02/25 16:52 Droperidol 5 Mg/2 Ml Vial IV 03/02/25 16:42 0.625 mg STAT ONE Administration Droperidol Confirm 03/02/25 16:51 Droperidol 5 Mg/2 Ml Vial Administered 03/02/25 16:52 Dose 5 mg .ROUTE .STK-MED ONE Furosemide 40 mg 03/02/25 17:30 03/02/25 18:24 Furosemide 40 Mg/4 Ml Vial IV 03/02/25 17:31 40 mg STAT ONE Administration Furosemide Confirm 03/02/25 18:20 Furosemide 40 Mg/4 Ml Vial Administered 03/02/25 18:21 Dose 40 mg .ROUTE .STK-MED ONE Acetaminophen 100 mls @ 400 mls/hr 03/02/25 16:40 03/02/25 17:02 Ofirmev IV 03/02/25 16:54 Infused STAT ONE Infusion Acetaminophen Confirm 03/02/25 16:41 Ofirmev Administered 03/02/25 16:42 Dose 100 mls @ ud IV .STK-MED ONE Potassium Chloride 20 meq in 100 mls @ 50 mls/hr 03/02/25 17:30 03/02/25 20:31 Potassium Chloride 20 Meq In Water 100ml IV 03/02/25 19:29 Infused STAT ONE Infusion Potassium Chloride Confirm 03/02/25 18:20 Potassium Chloride 20 Meq In Water 100ml Administered 03/02/25 18:21 Dose 100 mls @ ud IV .STK-MED ONE Ondansetron HCl 4 mg 03/02/25 16:17 03/02/25 16:44 Ondansetron Hcl 4 Mg/2 Ml Vial IV 03/02/25 16:18 4 mg STAT STA Administration Ondansetron HCl Confirm 03/02/25 16:39 Ondansetron Hcl 4 Mg/2 Ml Vial Administered 03/02/25 16:40 Dose 4 mg .ROUTE .STK-MED ONE Lab/Rad Data: Laboratory Result Diagrams 03/02/25 16:10 03/02/25 16:00 Laboratory Results 03/02/25 03/02/25 03/02/25 Range/Units 18:20 16:24 16:10 WBC (3.98-10.04) x10^3/uL RBC (3.93-5.22) x10^6/uL Hgb (11.2-15.7) g/dL Hct (34.1-44.9) % MCV (79.4-94.8) fL MCH (25.6-32.2) pg MCHC (32.2-35.5) g/dL RDW (11.7-14.4) % Plt Count (182-369) x10^3/uL MPV (9.4-12.3) fL Gran % (34.0-71.1) % Immature Gran % (Auto) (0.001-0.429) % Nucleat RBC Rel Count (0.00-0.2) % Eos # (Auto) (0.04-0.36) x10^3/uL Immature Gran # (Auto) (0.001-0.031) x10^3u/L Absolute Lymphs (auto) (1.18-3.74) x10^3/uL Absolute Monos (auto) (0.24-0.86) x10^3/uL Absolute Nucleated RBC (0.00-0.012) x10^3u/L Lymphocytes % (19.3-51.7) % Monocytes % (4.7-12.5) % Eosinophils % (0.7-5.8) % Basophils % (0.1-1.2) % Absolute Granulocytes (1.56-6.13) x10^3/uL Basophils # (0.01-0.08) x10^3/uL Sodium (135-145) mmol/L Potassium (3.5-5.1) mmol/L Chloride (98-107) mmol/L Carbon Dioxide (22-30) mmol/L Anion Gap (5-15) MEQ/L BUN (7-17) mg/dL Creatinine (0.52-1.04) mg/dL Estimated GFR ML/MIN Glucose (74-106) mg/dL Lactic Acid 1.3 (0.4-2.0) Calcium (8.4-10.2) mg/dL Total Bilirubin (0.2-1.3) mg/dL AST (14-36) U/L ALT (0-35) U/L Alkaline Phosphatase (38-126) U/L Troponin I (0.000-0.033) ng/mL NT-Pro-B Natriuret Pep (<300) pg/mL Serum Total Protein (6.3-8.2) g/dL Albumin (3.5-5.0) g/dL Urine Color Yellow (Yellow) Urine Appearance Clear (Clear) Urine pH 6.0 (4.6-8.0) Ur Specific [place] 1.015 (1.005-1.030) Urine Protein Negative (Negative) Urine Glucose (UA) Negative (Negative) mg/dL Urine Ketones Negative (Negative) Urine Blood Negative (Negative) Urine Nitrite Negative (Negative) Urine Bilirubin Negative (Negative) Urine Urobilinogen 1.0 A (0.2) mg/dL Ur Leukocyte Esterase Trace A (Negative) U Hyaline Cast (Auto) NONE SEEN (0-2) /LPF Urine Microscopic RBC 0-2 (0-5) /HPF Urine Microscopic WBC 0-2 (0-5) /HPF Ur Epithelial Cells None Seen (None Seen) /HPF Urine Bacteria None Seen (None Seen) /HPF Urine Culture Reflexed ORDERED SEPARATELY (NO) Digoxin 0.5 L (0.8-1.9) ng/mL Monoscreen (NEGATIVE) Influenza Type A Ag (NEGATIVE) Influenza Type B Ag (NEGATIVE) RSV (PCR) (NEGATIVE) SARS-CoV-2 (PCR) (NEGATIVE) 03/02/25 03/02/25 03/02/25 Range/Units 16:10 16:10 16:00 WBC 15.5 H (3.98-10.04) x10^3/uL RBC 4.44 (3.93-5.22) x10^6/uL Hgb 14.1 (11.2-15.7) g/dL Hct 43.0 (34.1-44.9) % MCV 96.8 H (79.4-94.8) fL MCH 31.8 (25.6-32.2) pg MCHC 32.8 (32.2-35.5) g/dL RDW 13.2 (11.7-14.4) % Plt Count 297 (182-369) x10^3/uL MPV 9.9 (9.4-12.3) fL Gran % 88.3 H (34.0-71.1) % Immature Gran % (Auto) 0.6 H (0.001-0.429) % Nucleat RBC Rel Count 0.0 (0.00-0.2) % Eos # (Auto) 0.12 (0.04-0.36) x10^3/uL Immature Gran # (Auto) 0.09 H (0.001-0.031) x10^3u/L Absolute Lymphs (auto) 0.95 L (1.18-3.74) x10^3/uL Absolute Monos (auto) 0.60 (0.24-0.86) x10^3/uL Absolute Nucleated RBC 0.00 (0.00-0.012) x10^3u/L Lymphocytes % 6.1 L (19.3-51.7) % Monocytes % 3.9 L (4.7-12.5) % Eosinophils % 0.8 (0.7-5.8) % Basophils % 0.3 (0.1-1.2) % Absolute Granulocytes 13.68 H (1.56-6.13) x10^3/uL Basophils # 0.05 (0.01-0.08) x10^3/uL Sodium (135-145) mmol/L Potassium (3.5-5.1) mmol/L Chloride (98-107) mmol/L Carbon Dioxide (22-30) mmol/L Anion Gap (5-15) MEQ/L BUN (7-17) mg/dL Creatinine (0.52-1.04) mg/dL Estimated GFR ML/MIN Glucose (74-106) mg/dL Lactic Acid (0.4-2.0) Calcium (8.4-10.2) mg/dL Total Bilirubin (0.2-1.3) mg/dL AST (14-36) U/L ALT (0-35) U/L Alkaline Phosphatase (38-126) U/L Troponin I (0.000-0.033) ng/mL NT-Pro-B Natriuret Pep (<300) pg/mL Serum Total Protein (6.3-8.2) g/dL Albumin (3.5-5.0) g/dL Urine Color (Yellow) Urine Appearance (Clear) Urine pH (4.6-8.0) Ur Specific [place] (1.005-1.030) Urine Protein (Negative) Urine Glucose (UA) (Negative) mg/dL Urine Ketones (Negative) Urine Blood (Negative) Urine Nitrite (Negative) Urine Bilirubin (Negative) Urine Urobilinogen (0.2) mg/dL Ur Leukocyte Esterase (Negative) U Hyaline Cast (Auto) (0-2) /LPF Urine Microscopic RBC (0-5) /HPF Urine Microscopic WBC (0-5) /HPF Ur Epithelial Cells (None Seen) /HPF Urine Bacteria (None Seen) /HPF Urine Culture Reflexed (NO) Digoxin (0.8-1.9) ng/mL Monoscreen NEGATIVE (NEGATIVE) Influenza Type A Ag NEGATIVE (NEGATIVE) Influenza Type B Ag NEGATIVE (NEGATIVE) RSV (PCR) NEGATIVE (NEGATIVE) SARS-CoV-2 (PCR) NEGATIVE (NEGATIVE) 03/02/25 Range/Units 16:00 WBC (3.98-10.04) x10^3/uL RBC (3.93-5.22) x10^6/uL Hgb (11.2-15.7) g/dL Hct (34.1-44.9) % MCV (79.4-94.8) fL MCH (25.6-32.2) pg MCHC (32.2-35.5) g/dL RDW (11.7-14.4) % Plt Count (182-369) x10^3/uL MPV (9.4-12.3) fL Gran % (34.0-71.1) % Immature Gran % (Auto) (0.001-0.429) % Nucleat RBC Rel Count (0.00-0.2) % Eos # (Auto) (0.04-0.36) x10^3/uL Immature Gran # (Auto) (0.001-0.031) x10^3u/L Absolute Lymphs (auto) (1.18-3.74) x10^3/uL Absolute Monos (auto) (0.24-0.86) x10^3/uL Absolute Nucleated RBC (0.00-0.012) x10^3u/L Lymphocytes % (19.3-51.7) % Monocytes % (4.7-12.5) % Eosinophils % (0.7-5.8) % Basophils % (0.1-1.2) % Absolute Granulocytes (1.56-6.13) x10^3/uL Basophils # (0.01-0.08) x10^3/uL Sodium 133 L (135-145) mmol/L Potassium 3.3 L (3.5-5.1) mmol/L Chloride 102 (98-107) mmol/L Carbon Dioxide 20 L (22-30) mmol/L Anion Gap 14.4 (5-15) MEQ/L BUN 17 (7-17) mg/dL Creatinine 0.93 (0.52-1.04) mg/dL Estimated GFR 65.3 ML/MIN Glucose 120 H (74-106) mg/dL Lactic Acid (0.4-2.0) Calcium 9.3 (8.4-10.2) mg/dL Total Bilirubin 0.90 (0.2-1.3) mg/dL AST 24 (14-36) U/L ALT 17 (0-35) U/L Alkaline Phosphatase 118 (38-126) U/L Troponin I 0.013 (0.000-0.033) ng/mL NT-Pro-B Natriuret Pep 2130 (<300) pg/mL Serum Total Protein 7.2 (6.3-8.2) g/dL Albumin 4.4 (3.5-5.0) g/dL Urine Color (Yellow) Urine Appearance (Clear) Urine pH (4.6-8.0) Ur Specific [place] (1.005-1.030) Urine Protein (Negative) Urine Glucose (UA) (Negative) mg/dL Urine Ketones (Negative) Urine Blood (Negative) Urine Nitrite (Negative) Urine Bilirubin (Negative) Urine Urobilinogen (0.2) mg/dL Ur Leukocyte Esterase (Negative) U Hyaline Cast (Auto) (0-2) /LPF Urine Microscopic RBC (0-5) /HPF Urine Microscopic WBC (0-5) /HPF Ur Epithelial Cells (None Seen) /HPF Urine Bacteria (None Seen) /HPF Urine Culture Reflexed (NO) Digoxin (0.8-1.9) ng/mL Monoscreen (NEGATIVE) Influenza Type A Ag (NEGATIVE) Influenza Type B Ag (NEGATIVE) RSV (PCR) (NEGATIVE) SARS-CoV-2 (PCR) (NEGATIVE) - Progress Progress: improved, re-examined Counseled pt/family regarding: lab results, diagnosis, rad results <CHANDLER GARRISONDO Millie - Last Filed: 03/02/25 19:21> <RHETT HILL - Last Filed: 03/02/25 20:54> - Progress Progress Note: 03/02/25 16:44 My medical decision making and the assignment of high complexity of this patient's medical issue today is based on review of the patient's past medical history, review the patient's medication list, review the patient drug allergy list, history presents with physical findings on examination. The workup in this patient includes placement of an intravenous line, infusion of normal saline solution, infusion of Zofran, infusion of droperidol intravenously, infusion of Protonix, twelve-lead EKG, BNP, troponin level, viral swabs, monotest, strep test, urinalysis, chest x-ray, blood cultures, digoxin level. We will also infuse Tylenol intravenously and this patient. Differential diagnosis includes was not limited to urinary tract infection, dehydration, pulmonary infiltrate, viral illness, strep pharyngitis, atrial fibrillation with RVR, fever, arrhythmia, electrolyte abnormalities, ulcer disease/gastritis 03/02/25 17:36 I interpreted the patient's laboratory data results. Based on the laboratory data results, the patient has a low digoxin level. Will supplement her with a dose of 0.5 mg intravenous digoxin. She also has an elevated white count with a left shift. Patient has an elevated BNP and we will provide the patient with Lasix intravenously. Her potassium is 3.1 and we will supplement her with intravenous sodium. We are waiting for the urinalysis. The final chest x-ray report was interpreted by the radiologist and I reviewed the impression. The impression states cardiomegaly. Small hiatal hernia. Remaining heart and lungs unremarkable. No new or acute findings. 03/02/25 19:21 The patient has an unknown source of fever with leukocytosis and left shift. We will CT scan the patient's head as she is on Eliquis and this patient could have a fever from an intracranial abnormality/bleed. I am transferring care to Dr. Rhett Hill at shift change. He will follow-up on the pending studies and make final disposition. (HIRO GARRISON) Patient endorsed to Dr. Hill at approximately [address] head ordered results pending. CT head resulted. No acute intracranial abnormality. Upon arrival to our ED patient did not complain of any abdominal pain so a CT scan was not initially ordered. Laboratory workup reveals a leukocytosis. Patient had a fever. However workup failed to reveal a source of infection. Patient currently afebrile. Patient tolerating p.o. Patient denies pain. In light of patient's fever and vomiting I advised a CT abdomen pelvis to clear the abdomen of infection as we have not found a source at this point. Patient declined a CT scan. There is no indication for hospitalization/admission at this time. We will arrange early follow-up with Dr. Solo on Friday. Patient instructed to return to our ED if she develops recurrent, new or worsening symptoms. Patient's is at the bedside. He agrees to return to our ED if patient develops any concerning symptomology otherwise they will follow-up in Dr. oSlo's office on Friday. We will call Dr. Gao's office in the morning and arrange follow-up. Portions of this note were created with voice recognition technology. There may be grammatical, spelling, punctuation or sound alike errors 03/02/25 20:51 (RHETT HILL) Medical Desision Making - Independent Historian Additional History obtained from: Spouse - Diagnostic Testing Diagnostic test were ordered, analyzed, and reviewed by me: Yes Radiological Interpretation: Reviewed by me, Teleradiologist Report - Risk of complications The pt has a high risk of morbidity or mortality based on: Decision regarding hospitilization or escalation of hosp level of care <HIRO GARRISON - Last Filed: 03/02/25 19:21> - Departure Departure Disposition: Observation Critical Care Time: Yes Critical Care Time(excluding separately billable procedures): Critical 30-74 mins (45) <HIRO GARRISON - Last Filed: 03/02/25 19:21> <RHETT HILL - Last Filed: 03/02/25 20:54> - Departure Clinical Impression: Viral illness, Fever, Serum digoxin level below therapeutic range, Atrial fibrillation with RVR, Fever of unknown origin Condition: Fair Referrals: JOSE SOLO [Primary Care Provider, [facility]] - Follow up/PCP as directed Additional Instructions: Discharge/Care Plan LAUREANO MADRIGAL was seen on 03/02/25 in the Emergency Room. The patient was counseled regarding Diagnosis,Lab results, Imaging studies, need for follow up and when to return to the Emergency Room. Prescriptions given: Discharge Note I have spoken with the patient and/or caregivers. I have explained the patient's condition, diagnosis and treatment plan based on the information available to me at this time. I have answered the patient's and/or caregiver's questions and addressed any concerns. The patient and/or caregivers have as good understanding of the patient's diagnosis, condition and treatment plan as can be expected at this point. The vital signs have been stable. The patient's condition is stable and appropriate for discharge from the emergency department. The patient will pursue further outpatient evaluation with the primary care physician or other designated or consulting physician as outlined in the discharge instructions. The patient and/or caregivers are agreeable to this plan of care and follow-up instructions have been explained in detail. The patient and/or caregivers have received these instruction. The patient/and or caregivers are aware that any significant change in condition or worsening of symptoms should prompt an immediate return to this or the closest emergency department or call 911.
[2025-03-02 16:37] LABS: BASOPHIL % 0.3 % (0.1-1.2); Basophil (Absolute #) 0.05 x10^3/uL (0.01-0.08); Eosinophil (Absolute #) 0.12 x10^3/uL (0.04-0.36); Hematocrit 43.0 % (34.1-44.9); Hemoglobin 14.1 g/dL (11.2-15.7); IMMATURE GRAN # 0.09 x10^3u/L (0.001-0.031); IMMATURE GRAN % 0.6 % (0.001-0.429); Lymphocyte (Absolute #) 0.95 x10^3/uL (1.18-3.74); Mean Corpuscular Hemoglobin 31.8 pg (25.6-32.2); Mean Corpuscular Hgb Concent. 32.8 g/dL (32.2-35.5); Monocyte (Absolute #) 0.60 x10^3/uL (0.24-0.86); NUCLEATED RBC # 0.00 x10^3u/L (0.00-0.012); NUCLEATED RBC % 0.0 % (0.00-0.2); Platelet Count 297 x10^3/uL (182-369); Red Blood Count 4.44 x10^6/uL (3.93-5.22); White Blood Count 15.5 x10^3/uL (3.98-10.04)
[2025-03-02] MEDS ORDERED: Zofran 4 MG/2 ML VIAL ONE (16:39)
[2025-03-02] MEDS ORDERED: OFIRMEV 100 ML IV ONE (16:41)
--- NOTE | 2025-03-02 16:42 | XRAY ---
Indication: Fever. Comparison: January 06, 2025 Portable chest rotated again with cardiomegaly and small hiatal hernia. Remaining heart and lungs unremarkable. Bony thorax intact again with osteopenia and degenerative changes. No new/acute findings.
[2025-03-02] MEDS: OFIRMEV 100 ML IV ONE (16:44)
[2025-03-02] MEDS: Zofran 4 MG/2 ML VIAL IV STA (16:44)
[2025-03-02] MEDS ORDERED: Inapsine 5 MG/2 ML ONE (16:51)
[2025-03-02] MEDS: Inapsine 5 MG/2 ML IV ONE (16:52)
[2025-03-02 17:01] LABS: Calcium 9.3 mg/dL (8.4-10.2); Carbon Dioxide 20.0 mmol/L (22-30); Creatinine 1 0.93 mg/dL (0.52-1.04); EST GLOMERULAR FILTRATION RATE 65.3 ML/MIN; Glucose 120.0 mg/dL (74-106); Potassium 3.3 mmol/L (3.5-5.1); SGOT/AST 24.0 U/L (14-36); SGPT/ALT 17.0 U/L (0-35); TROPONIN 0.013 ng/mL (0.000-0.033); Total Protein 7.2 g/dL (6.3-8.2)
[2025-03-02] MEDS: TYLENOL 325 MG PO ONE (17:05)
[2025-03-02 17:10] LABS: INFLUENZA A NEGATIVE (NEGATIVE); INFLUENZA B NEGATIVE (NEGATIVE); RESPIRATORY SYNCTIAL VIRUS NEGATIVE (NEGATIVE); SARS-CoV-2 Xpert Express NEGATIVE (NEGATIVE)
[2025-03-02] MEDS ORDERED: Lanoxin 0.5 MG/2 ML INJECTION ONE (18:20)
[2025-03-02] MEDS ORDERED: POTASSIUM CHLORIDE 20 mEq IN WATER 100ML 100 ML IV ONE (18:20)
[2025-03-02] MEDS ORDERED: Lasix 40 MG/4 ML ONE (18:20)
[2025-03-02] MEDS: Lasix 40 MG/4 ML IV ONE (18:24)
[2025-03-02] MEDS: POTASSIUM CHLORIDE 20 mEq IN WATER 100ML 20 MEQ/100 ML BAG IV ONE (18:25)
[2025-03-02] MEDS: Lanoxin 0.5 MG/2 ML INJECTION IV ONE (18:25)
[2025-03-02 18:39] LABS: Glucose, Urine Negative (Negative); Protein,Urine Dip Negative (Negative); RBC 0-2 /HPF (0-5); WBC 0-2 /HPF (0-5)
[2025-03-02 20:42] VITALS: TEMP 97.5
[2025-03-02 20:59] VITALS: BP 130/84; PULSE 99; RESP 16; O2SAT 98
--- NOTE | 2025-03-03 08:57 | XRAY ---
Indication: Headache. Multiple contiguous axial images obtained through the head without contrast. Comparison: January 06, 2025 Again age-appropriate global atrophy, mild periventricular degenerative microischemia, and multifocal tiny/small bilateral basal ganglia infarcts. No acute intracranial hemorrhage, abnormal extra-axial fluid collection, or mass effect. 4th ventricle is midline without hydrocephalus. Bony calvarium intact. Visualized paranasal sinuses and mastoid air cells are clear. Impression: Stable nonacute senile brain with multifocal bilateral basal ganglia remote infarcts.
== END 2025-03-02 21:00 | disposition home or self-care (01) ==
LOC: ED 15:42
DX: B34.9 Viral infection, unspecified (principal); I48.20 Chronic atrial fibrillation, unspecified; T46.0X6A Underdosing of cardiac-stimulant glycosides and drugs of similar action, initial encounter; R50.9 Fever, unspecified; R11.2 Nausea with vomiting, unspecified; I10 Essential (primary) hypertension; Z79.899 Other long term (current) drug therapy